=== PATIENT | female | born 1955 | race American Indian/Alaskan Native ===

== ENCOUNTER 2018-10-29 09:32 | Outpatient (CLI) | payer MEDICARE, SELFPAY ==
--- NOTE | 2018-10-29 09:24 | DI.RAD_ITS ---
SYMPTOMS/DIAGNOSIS: PAIN LEFT FOOT: Comparison is made with [id number]. Two screws are again noted through the first tarsal metatarsal joint. The bones appear osteopenic from disuse. An old fifth metatarsal fracture is seen. Degenerative changes are present at the first MTP joint.
== END 2018-10-29 09:52 ==
PROVIDERS: PCP Family Medicine; Referring Provider Family Medicine; Visit Provider Orthopaedic Surgery
DX: M25.572 Pain in left ankle and joints of left foot; Z47.89 Encounter for other orthopedic aftercare; M85.88 Other specified disorders of bone density and structure, other site
CPT/HCPCS: 99203; 99214; 73620

== ENCOUNTER → 2018-12-24 08:58 | Outpatient (BNVA) | payer MEDICARE, SELFPAY | PROVIDERS: PCP Family Medicine; Referring Provider Family Medicine; Visit Provider Orthopaedic Surgery | DX: Z47.89 Encounter for other orthopedic aftercare (principal); M20.12 Hallux valgus (acquired), left foot | CPT/HCPCS: 99201; 99213 ==

== ENCOUNTER 2019-06-01 13:49 | Emergency (ER) | payer MEDICARE, SELFPAY ==
--- NOTE | 2019-06-01 13:57 | NUR.NOTE ---
Nursing Note: pt states she had had abdominal pain centering on upper right quadrant since the 04/28 pain constantly. pt has also had nausea vomiting 1 time a day on average pain is worse after eating
[2019-06-01 13:59] VITALS: BP 128/78; PULSE 93; RESP 15; TEMP 36.8; O2SAT 97
--- NOTE | 2019-06-01 14:16 | ED.GENADUL_ITS ---
Discharge Plan Disposition Patient Disposition: HOME Condition: Stable Discharge Details Chief Complaint: Abd Prob Clinical Impression: Abdominal pain, Liver metastases Primary Care Provider: Julian Wadsworth ED Provider: Kentrell Vergara Home Meds and New Rx's Prescriptions: No Action venlafaxine [Effexor XR] 150 MG capsule,extended release 24hr 225 mg PO DAILY RF: 0 Discharge Instructions Additional Instructions: your cat scan showed you have numerous metastases on your cat scan. I placed you on our follow up list to see your primary care provider within a week and also and oncology if you feel you are becoming more ill or have severe worsening pain return to the emergency department Discharge Data Discharge Date/Time-TO BE ENTERED AT DEPARTURE: 06/01/19 17:19 Medical Decision Making 63 yo female who has a hx of hysterectomy in the past comes in with a week of abodminal pain and nausea. She states the pain is constant and denies recent travel or new meds. On exam she has pain throughout the abdomen without guarding but seems to have the most pain in the epigastric area. Given location of her pain and symptoms will obtain ct and also lab work and monitor labs show eleation in lfts and lipase, awaiting ct. She does feel better at this time CT shows numerous metastses in liver, also nonspecific inflammator changes in the stomache. She remains stable. I did discuss these findings with her and that she will need to f/u with providers and understands seriousness of her diagnosis. Will have her f/u with her pcp elisabeth and also oncology and Differential Diagnosis pancreatitis, sbo, appendicitis, ibs Imaging Data Radiologic Study: Attestation: I personally reviewed and interpreted this imaging study as follows: Imaging: CT Scan Radiologist's impression: IMPRESSION: 1. Innumerable liver lesions consistent with metastatic disease. Correlate with clinical situation and prior studies if available. 2. Diffuse wall thickening of the stomach suggestive of a nonspecific gastritis, versus artifact related to underdistention. Correlate clinically. Lab Data Lab results reviewed: Yes I reviewed the patient's lab results. HPI General Mode of arrival: ambulatory . Date/Time Provider Initiated Documentation: 06/01/19 13:52 . Limitations to Documentation: no limitations . Information obtained by: patient . History of Present Illness 63 year old F presents to the emergency department with the chief complaint of abdominal pain, described as moderate, and it has been constant. No relieving factors improve symptom(s), No exacerbating factors reported . Patient did receive the following treatments prior to arrival, none Related Data Home Medications Medication Instructions Recorded Confirmed venlafaxine [Effexor XR] 225 mg PO DAILY 04/18/18 06/01/19 Allergies Allergy/AdvReac Type Severity Reaction Status Date / Time clarithromycin [From Biaxin] Allergy Severe Anaphylaxsi Unverified 06/01/19 14:01 s Penicillins Allergy Intermediate Skin Rash Unverified 06/01/19 14:01 General Stated Complaint: Abd Prob ARABELLA: 4 Review of Systems Review of Systems All systems reviewed & are unremarkable except as noted in HPI and below Constitutional Denies chills, Denies fever(s) and Denies weakness Cardiovascular Denies chest pain and Denies dyspnea Respiratory Denies cough and Denies dyspnea Musculoskeletal Denies joint swelling Neurologic Denies weakness Endocrine Denies heat intolerance PFSH Social History Smoking/Tobacco Use Status: Former Tobacco Use Alcohol Intake: current Alcohol Intake frequency: holidays/special occasions only Substance use type: does not use Do you feel safe in your relationship?: Yes Exam Const General: no acute distress Orientation: alert HENMT Head: normal to inspection Ears: external ears normal General nose exam: external nose normal Mouth: moist mucous membranes Eyes General: appearance normal, both eyes and all related structures Neck Neck: normal visual inspection Resp Effort & Inspection: normal respiratory effort and able to speak in complete sentences Cardio Rate: regular rate GI Inspection: normal to inspection and no abdominal wall ecchymosis Skin General skin exam: no rashes or lesions noted Neuro General: alert and oriented x3 Extrem General: normal to inspection Psych Mental Status: mental status grossly normal Course Vital Signs Temperature 36.8 C 06/01/19 13:59 Pulse 93 H 06/01/19 13:59 Respiratory Rate 15 06/01/19 13:59 Blood Pressure 128/78 06/01/19 13:59 Pulse Oximetry 97 06/01/19 13:59 Temperature 36.8 C 06/01/19 13:59 Temperature Source Skin 06/01/19 13:59 Pulse 93 H 06/01/19 13:59 Respiratory Rate 15 06/01/19 13:59 Blood Pressure 128/78 06/01/19 13:59 Blood Pressure Position Sitting 06/01/19 13:59 Pulse Oximetry 97 06/01/19 13:59 Oxygen Delivery Method Room Air 06/01/19 13:59 Oxygen Flow Rate 0 06/01/19 13:59 Pain Level 7 06/01/19 13:59
[2019-06-01] MEDS: Normal Saline 1,000 ML 1000 ML IV (14:41)
[2019-06-01] MEDS: Prochlorperazine 10 MG/2 ML VIAL IVP (14:45)
[2019-06-01 14:53] LABS: Abs Immature Grans 0.03 k/cumm (0.0-0.09); HCT 42.3 % (36.0-46.0); HGB 14.2 g/dL (12.0-15.5); Mean Corp. HGB Concentration 33.6 g/dL (32.0-36.0); Mean Corpuscular Volume 98.4 fL (80-95); Platelet Count 256 x1000/uL (130-400); RBC Distribution Width 13.5 % (11.7-14.6); White Blood Cell Count 14.61 k/cumm (4.4-10.8)
[2019-06-01 14:56] LABS: Bilirubin Small (Negative); Blood Negative (Negative); Clarity Clear (Clear); Glucose Negative (Negative); Ketones Trace mg/dL (Negative); Leukocyte Esterase Negative (Negative); Nitrite Negative (Negative); Specific Gravity 1.015 (1.005-1.025); Urobilinogen 0.2 EU/dL (Up TO 0.2)
[2019-06-01 15:05] LABS: ALT 277 U/L (12-78); AST 290 U/L (15-37); Albumin 3.4 g/dL (3.4-5.0); Alkaline Phosphatase 504 U/L (46-116); Anion Gap 10.6 mmol/L (3-11); BUN 10 mg/dL (7-18); Bilirubin, Total 0.8 mg/dL (0.2-1.0); CO2 26.4 mmol/L (21.0-32.0); CREATININE 0.76 mg/dL (0.55-1.02); Calcium 9.7 mg/dL (8.5-10.1); Chloride 102 mmol/L (98-107); Glucose 97 mg/dL (70-100); Lipase 472 U/L (73-393); Magnesium 1.4 mg/dL (1.8-2.4); PTT Activated 23.8 sec (21.0-31.4); Potassium 3.8 mmol/L (3.5-5.1); Prothrombin Time 10.1 sec (9.3-11.0); Sodium 139 mmol/L (136-145); Total Protein 7.6 g/dL (6.4-8.2)
[2019-06-01 15:06] LABS: Absolute Eosinophil Count 0.15 k/cumm (0.0-0.7)
[2019-06-01 15:13] LABS: Absolute Basophil Count 0.15 k/cumm (0.0-0.2); Absolute Lymphocyte Count 3.36 k/cumm (1.2-3.4); Absolute Monocyte Count 2.78 k/cumm (0.11-0.7); Absolute Neutrophil Count 8.18 k/cumm (1.2-6.7); Atypical Lymphocytes % 4; Diff Comment Manual Differential; RBC Morphology Normal
[2019-06-01] MEDS: Ketorolac 15 MG/ML VIAL IVP (15:41)
[2019-06-01] MEDS: Omnipaque 350 MG/ML 100 ML BTL IJ (16:05)
--- NOTE | 2019-06-01 16:10 | DI.CT_ITS ---
SYMPTOMS/DIAGNOSIS: ABD PAIN, NAUSEA CT OF THE ABDOMEN AND PELVIS: There are no prior comparison exams. The liver is enlarged to 22 cm. There are innumerable low density lesions throughout the liver, highly suspicious for metastases. No ascites is present. There is no evidence of adenopathy or biliary dilatation. The gallbladder is contracted. The spleen is normal in size. The adrenals, pancreas, kidneys and urinary bladder appear normal. The patient is status post hysterectomy. No adenopathy is seen in the abdomen or pelvis. The appendix appears normal. No colonic mass is identified. The small bowel is unremarkable. The stomach is contracted. The lung bases are clear. There are old right posterior rib fractures. No lytic or blastic bony lesions are seen. There are facet degenerative changes in the lower lumbar spine. There is a tiny fatty containing umbilical hernia and a small right inguinal hernia. IMPRESSION: Enlarged liver with numerous low density lesions suspicious for metastatic disease. No primary mass or adenopathy is identified.
--- NOTE | 2019-06-01 16:58 | DI.VRAD_ITS ---
EXAM: CT Abdomen and Pelvis With Contrast EXAM DATE/TIME: 06/01/2019 3:23 PM CLINICAL HISTORY: 63 years old, female; Abdominal pain; Other: Ruq TECHNIQUE: Imaging protocol: Axial computed tomography images of the abdomen and pelvis with intravenous contrast. Coronal and sagittal reformatted images were created and reviewed. Radiation optimization: All CT scans at this facility use at least one of these dose optimization techniques: automated exposure control; mA and/or kV adjustment per patient size (includes targeted exams where dose is matched to clinical indication); or iterative reconstruction. Contrast material: OMNIPAQUE 350;Contrast volume: 100 ml;Contrast route: IV; COMPARISON: No relevant prior studies available. FINDINGS: Liver: Innumerable liver lesions consistent with metastatic disease. Correlate with clinical situation and prior studies if available. Gallbladder and bile ducts: Normal. No calcified stones. No ductal dilation. Pancreas: Normal. No ductal dilation. Spleen: Normal. No splenomegaly. Adrenals: Normal. No mass. Kidneys and ureters: Normal. No hydronephrosis. Stomach and bowel: Diffuse wall thickening of the stomach suggestive of a nonspecific gastritis, versus artifact related to underdistention. Correlate clinically. Appendix: No evidence of appendicitis. Intraperitoneal space: Normal. No free air. No significant fluid collection. Vasculature: Aorta demonstrates mild atherosclerotic calcification. Lymph nodes: Normal. No enlarged lymph nodes. Bladder: Unremarkable as visualized. Reproductive: Unremarkable as visualized. Bones/joints: Grade 1 anterolisthesis L4-L5. Soft tissues: Fat-containing right inguinal hernia without incarceration. IMPRESSION: 1. Innumerable liver lesions consistent with metastatic disease. Correlate with clinical situation and prior studies if available. 2. Diffuse wall thickening of the stomach suggestive of a nonspecific gastritis, versus artifact related to underdistention. Correlate clinically. Dictated and Authenticated by: Armani Montenegro MD. Ordering:STEVEN Pfeiffer MD
== END 2019-06-01 17:19 | disposition home or self-care (01) ==
PROVIDERS: Emergency Provider Emergency Medicine; PCP Specialist/Technologist Athletic Trainer
DX: C78.7 Secondary malignant neoplasm of liver and intrahepatic bile duct (principal); R10.13 Epigastric pain; R11.0 Nausea
CPT/HCPCS: 36415; 80053; 83690; 96361; 96374; 96375; 99285; 74177; 81003; 83735; 85025; 85610; 85730; 99284; J0780; J1885; J2405; J3490

== ENCOUNTER 2019-06-11 23:04 | Observation (INO) | payer MEDICARE, SELFPAY ==
--- NOTE | 2019-06-11 00:16 | DI.CT_ITS ---
SYMPTOMS/DIAGNOSIS: RLQ PAIN CT OF THE ABDOMEN AND PELVIS: Comparison is made with [id number]. The liver is again noted to be markedly enlarged and show innumerable low density lesions presumably representing metastatic disease. The spleen, pancreas, kidneys and adrenals are unremarkable. The gallbladder shows no evidence of abnormal distention or wall thickening. The appendix appears normal. There is a question of some wall thickening of the cecum. The bladder is unremarkable. There is no small bowel dilatation. There is a rounded area of debris within the stomach which does not appear significantly changed from the previous exam. The findings could represent a bezoar vs a mass. Evaluation is limited without oral contrast. IMPRESSION: 1. Innumerable liver metastases, unchanged. Question of a gastric mass vs bezoar. Question of wall thickening of the cecum.
[2019-06-11 23:08] VITALS: BP 135/112; PULSE 97; RESP 22; TEMP 36.5; O2SAT 98
--- NOTE | 2019-06-11 23:11 | ED.GENADUL_ITS ---
Discharge Plan Disposition Patient Disposition: [facility] INPATIENT Condition: Fair Discharge Details Chief Complaint: Abd Prob Clinical Impression: Abdominal pain, RLQ Primary Care Provider: Julian Wadsworth ED Provider: Reynaldo Watson [place] Meds and New Rx's Prescriptions: No Action venlafaxine [Effexor XR] 150 mg Capsule,Extended Release 24hr 300 mg PO DAILY RF: 0 Medical Decision Making Patient presenting with severe right lower quadrant abdominal pain status post liver biopsy yesterday. She does not have right upper quadrant pain and the biopsy site looks fine. She has had sweats and chills but no fever that she is aware of. Doubt that this is related to the biopsy. She does have her appendix. She is being worked up for metastatic cancer to the liver with u domingowfroy primary. Will place IV and start fluids. She will receive morphine for pain. We will get laboratory studies. Will get CT scan of the abdomen pelvis. Laboratory studies are not significantly different than previous. White count remained mildly elevated. Hemoglobin is stable and normal. Liver function is elevated but is around the same values as before. Bilirubin is a little bit higher than previous. Lipase continues to be elevated. Urinalysis is negative for infection or blood. CT scan continues to show hepatomegaly with metastatic disease. Stomach continues to show thickening and does not look significantly different than before. New findings compared to previous done within the last couple weeks now shows inflammatory changes in the cecum and proximal colon. The appendix is normal. There is one loop of small bowel that is a little distended and fluid- filled but no definite obstruction. Patient continues to have pain but is much more comfortable after morphine. She still has involuntary guarding and tenderness in the right lower quadrant. Case is discussed with surgery, Dr. Abraham. Will admit the patient and keep n.p.o. except for ice chips. Will start Zosyn. Dr. Abraham to see in the morning and review CAT scan and plan further evaluation and management then. Patient is aware and agreeable with plan. Medical Records Medical records reviewed: Yes I reviewed the patient's medical records. Lab Data Lab results reviewed: Yes I reviewed the patient's lab results. HPI General Mode of arrival: ambulatory . Date/Time Provider Initiated Documentation: 06/11/19 23:10 . Limitations to Documentation: no limitations . Information obtained by: patient, RN notes reviewed and old records reviewed . HPI Narrative: Patient presents to ED with severe right lower quadrant abdominal pain. Patient has recently been diagnosed with metastatic cancer to the liver of unknown primary. She underwent liver biopsy yesterday at [facility]. She is not having pain at the biopsy site or in the right upper quadrant. She has had increasing pain in the right lower quadrant. She has difficulty lying flat, walking, riding in the car all caused significant pain. She has had sweats and chills but unknown whether she had fever or not. She has had persistent nausea and vomiting over the last couple of weeks which actually prompted an ED visit at which diagnosis of mets to the liver was made. She did have a bowel movement today. She denies any specific urinary symptoms other than foul smell. She did speak to the doctors at [facility] earlier today. She was told that if she got worse she should present to the ED. The pain does not radiate into the back at all. She does not experience pain anywhere but the right lower quadrant. Holding pressure in the area makes it feel better but only mildly so. Related Data Home Medications Medication Instructions Recorded Confirmed venlafaxine [Effexor XR] 300 mg PO DAILY 06/12/19 06/12/19 Allergies Allergy/AdvReac Type Severity Reaction Status Date / Time clarithromycin [From Biaxin] Allergy Severe Anaphylaxsi Unverified 06/12/19 00:09 s Penicillins Allergy Intermediate Skin Rash Unverified 06/12/19 00:09 General ARABELLA: 4 Review of Systems Review of Systems 08/02 Review of Systems completed and is negative except as stated above in HPI (Systems reviewed: Const, Eyes, ENT, Resp, CV, GI, , MSK, Skin, Neuro) PFSH Surgical History S/P hysterectomy (Acute) Social History Smoking/Tobacco Use Status: Former Tobacco Use Alcohol Intake: current Alcohol Intake frequency: holidays/special occasions only Drug use: Never Substance use type: does not use Do you feel safe at home: Yes Do you feel safe in your relationship?: Yes Exam Narrative Exam Narrative: Vitals: Afebrile. Mildly tachycardic and hypertensive. Pulse oximetry normal. Const: WDWN female who appears quite uncomfortable. HEENT: NC/AT. Normal facial exam. Eyes: Appears to have some mild icterus. Neck: Supple. Trachea midline. Lungs: Normal respiratory effort. Lungs are clear. Cor: RRR without murmur/gallop. Good radial pulses. GI: Soft and non-distended. Tender with guarding in the RLQ. Biopsy site looks well. Back: No CVAT. Neuro: A+O x 3. CN grossly in tact. Good strength and no focal deficit. Ext: No C/C/E. No deformity or tenderness. Skin: Warm and dry without rash.
[2019-06-11] MEDS: MORPHine 10 MG/ML VIAL 4 MG IVP (23:31)
[2019-06-11] MEDS: Lactated Ringers 1,000 ML 125 ML IV (23:34)
[2019-06-11 23:45] VITALS: BP 122/70; PULSE 98; RESP 21; O2SAT 97
[2019-06-11] MEDS: Ondansetron 4 MG/2 ML VIAL IVP (23:46)
[2019-06-11 23:50] LABS: Abs Immature Grans 0.05 k/cumm (0.0-0.09); Absolute Basophil Count 0.04 k/cumm (0.0-0.2); Absolute Eosinophil Count 0.12 k/cumm (0.0-0.7); Absolute Monocyte Count 2.24 k/cumm (0.11-0.7); Absolute Neutrophil Count 7.42 k/cumm (1.2-6.7); Basophils % 0.3; Eosinophils % 0.9; HCT 43.4 % (36.0-46.0); HGB 14.4 g/dL (12.0-15.5); Immature Grans % 0.4; Lymphocytes % 23.3; Mean Corp. HGB Concentration 33.2 g/dL (32.0-36.0); Mean Corpuscular Hemoglobin 32.6 pg (27.0-33.0); Mean Corpuscular Volume 98.2 fL (80-95); Mean Platelet Volume 12.1 fL (8.0-11.0); Monocytes % 17.4; Neutrophils % 57.7; Platelet Count 296 x1000/uL (130-400); RBC 4.42 m/cumm (4.00-5.20); RBC Distribution Width 14.2 % (11.7-14.6); White Blood Cell Count 12.86 k/cumm (4.4-10.8)
[2019-06-11 23:53] LABS: Diff Comment Agrees w/ Instrument
[2019-06-11 23:54] LABS: RBC Morphology Normal
[2019-06-12] VITALS (9 sets, daily range): BP systolic 93–123; BP diastolic 62–84; PULSE 77–102; RESP 16–20; TEMP 35.7–36.7; O2SAT 90–97
[2019-06-12 00:02] LABS: ALT 264 U/L (14-59); AST 364 U/L (15-37); Albumin 3.4 g/dL (3.4-5.0); Alkaline Phosphatase 598 U/L (46-116); Anion Gap 12.4 mmol/L (3-11); BUN 8 mg/dL (7-18); Bilirubin, Total 1.9 mg/dL (0.2-1.0); CO2 25.6 mmol/L (21.0-32.0); CREATININE 0.66 mg/dL (0.55-1.02); Calcium 9.1 mg/dL (8.5-10.1); Chloride 102 mmol/L (98-107); Glucose 87 mg/dL (70-100); Lipase 587 U/L (73-393); Sodium 140 mmol/L (136-145)
[2019-06-12] MEDS: Omnipaque 350 MG/ML 100 ML BTL IJ (00:13)
[2019-06-12 00:46] LABS: Bilirubin Moderate (Negative); Blood Negative (Negative); Clarity Clear (Clear); Glucose Negative (Negative); Ketones Negative (Negative); Leukocyte Esterase Negative (Negative); Nitrite Negative (Negative); Specific Gravity <= 1.005 (1.005-1.025)
--- NOTE | 2019-06-12 01:13 | DI.VRAD_ITS ---
EXAM: CT Abdomen and Pelvis With Contrast EXAM DATE/TIME: 06/11/2019 11:25 PM CLINICAL HISTORY: 63 years old, female; Abdominal pain; Localized; Right lower quadrant (rlq); Prior surgery; Surgery date: Post-operative (0-2 days); Surgery type: Liver biopsy yesterday TECHNIQUE: Imaging protocol: Computed tomography images of the abdomen and pelvis with intravenous contrast. Radiation optimization: All CT scans at this facility use at least one of these dose optimization techniques: automated exposure control; mA and/or kV adjustment per patient size (includes targeted exams where dose is matched to clinical indication); or iterative reconstruction. Contrast material: [id number]; Contrast volume: 100 ml; Contrast route: IV RAC 18G; COMPARISON: CT ABDOMEN PELVIS W 06/01/2019 4:04 PM FINDINGS: Liver: Multiple liver lesions consistent with metastases. Gallbladder and bile ducts: Normal. No calcified stones. No ductal dilation. Pancreas: Normal. No ductal dilation. Spleen: Normal. No splenomegaly. Adrenals: Normal. No mass. Kidneys and ureters: Normal. No hydronephrosis. Stomach and bowel: There is eccentric wall thickening in lesser curvature, body of the stomach with mass like density, measuring 1.5 x 2 x 1.2 cm, series 7, image 49 and series 6 image #35. Appearance of the stomach in this region has not significantly changed from prior study. There is subtle stranding of a fat about the cecum and ascending colon. Colon is normal in caliber. There is a a fluid distended segment of small bowel in mid to lower left abdomen extending over approximately 10 cm. Small bowel is otherwise normal in caliber. Appendix: No evidence of appendicitis. Intraperitoneal space: Normal. No free air. No significant fluid collection. Vasculature: Normal. No abdominal aortic aneurysm. Lymph nodes: Normal. No enlarged lymph nodes. Bladder: Unremarkable as visualized. Reproductive: Unremarkable as visualized. Bones/joints: The spine demonstrates mild degenerative changes at multiple levels. There is minimal anterior subluxation of L4 with respect L5. No suspicious sclerotic or lucent bone lesions are identified. Soft tissues: Unremarkable. IMPRESSION: 1. Hepatomegaly. 2. Multiple liver lesions consistent with metastases. 3. Eccentric wall thickening in stomach could be due mass, scarring or stricture Endoscopy is recommended. 4. Stranding of the fat about proximal colon could be due to inflammatory or infectious process or less likely third spacing of fluid. Dictated and Authenticated by: Terence Calix MD. Ordering:MIREYA Jacobs MD
[2019-06-12] MEDS: Normal Saline 1,000 ML 125 ML IV ×2 (02:04→10:21)
[2019-06-12] MEDS: Ondansetron 4 MG/2 ML VIAL IVP ×3 (02:04→12:44)
[2019-06-12] MEDS: PIPERACILLIN/TAZO 3.375 GM in Normal Saline 50 ML IVPB ×3 (02:05→14:11)
[2019-06-12] MEDS: MORPHine 2 MG/ML SYR 4 MG IVP (02:38)
--- NOTE | 2019-06-12 04:58 | HPE_ITS ---
Date of service: 06/12/19 Time of Service: 04:58 Assessment and Plan (1) Right lower quadrant abdominal pain: Current visit: Yes Status: Acute A\\ RLQ pain Ct scan with mild fat starnding around cecum/ileum ? enteritis P\\ Admit, antibiotics soft low fiber diet D/C once tolerating diet and pain is controlled History of Present Illness Consults Consult date: 06/12/19 Requesting physician: Reynaldo Watson Narrative: Mrs. Kaiser is a 63 year old female status post liver biopsy at [facility] for unknown primary liver mets. She came in to the ER complaining of RLQ abdominal pain. She continues to have nause and intermittent emesis. This is no change since she was last seen in the ER on 06/02/19. Labs today are not changed since the last set. LFT's are still elevated. CT scan was done which showed mild inflammation of cecum and ileum. Normal appendix. Review of Systems Constitutional Denies fever(s), Denies night sweats and Reports weight loss Cardiovascular Denies chest pain, Denies irregular heart rhythm, Denies palpitations, Denies dyspnea and Denies dyspnea on exertion Respiratory Denies dyspnea and Denies dyspnea on exertion Gastrointestinal Reports as per HPI Genitourinary Denies hematuria and Denies dysuria Endocrine Denies palpitations [facility] Medical History (Updated 06/12/19 @ 05:03 by Stephie Abraham MD) Bipolar disorder (Acute) Liver metastases (Acute) Surgical History S/P hysterectomy (Acute) Social History Smoking/Tobacco Use Status: Former Tobacco Use Alcohol Intake: current Alcohol Intake frequency: holidays/special occasions only Drug use: Never Substance use type: does not use Do you feel safe at home: Yes Do you feel safe in your relationship?: Yes Meds Home Medications Medication Instructions Recorded Confirmed Type venlafaxine [Effexor XR] 300 mg PO DAILY 06/12/19 06/12/19 History Allergies Allergy/AdvReac Type Severity Reaction Status Date / Time clarithromycin [From Biaxin] Allergy Severe Anaphylaxsi Unverified 06/12/19 00:09 s Penicillins Allergy Intermediate Skin Rash Unverified 06/12/19 00:09 Exam Const General: cooperative, comfortable and no acute distress Orientation: alert and oriented x3 HENMT Head: normocephalic and atraumatic Cardio Rate: regular rate Rhythm: regular rhythm Heart Sounds: no gallops, no murmurs and no rubs GI Inspection: normal to inspection Palpation: soft, hepatomegaly and tender (tender over the liver more then RLQ this am) in the RLQ; with no rebound tenderness Auscultation: normal bowel sounds Results Labs : 06/11/19 23:35 06/11/19 23:35 Laboratory Results - last 24 hr 06/11/19 06/11/19 06/12/19 23:35 23:35 00:30 WBC 12.86 H RBC 4.42 Hgb 14.4 Hct 43.4 MCV 98.2 H MCH 32.6 MCHC 33.2 RDW 14.2 Plt Count 296 MPV 12.1 H Immature Gran % 0.4 Neutrophils % 57.7 Lymphocytes % 23.3 Monocytes % 17.4 Eosinophils % 0.9 Basophils % 0.3 Absolute Neutrophils 7.42 H Absolute Lymphocytes 3.00 Absolute Monocytes 2.24 H Absolute Eosinophils 0.12 Absolute Basophils 0.04 Differential Comment Agrees w/ instrument RBC Morphology Normal Sodium 140 Potassium 4.0 Chloride 102 Carbon Dioxide 25.6 Anion Gap 12.4 H BUN 8 Creatinine 0.66 Estimated GFR/1.73 m2 >= 60.00 Glucose 87 Calcium 9.1 Total Bilirubin 1.9 H AST 364 H ALT 264 H Alkaline Phosphatase 598 H Total Protein 8.0 Albumin 3.4 Lipase 587 H Urine Color Yellow Urine Clarity Clear Urine pH 6.0 Ur Specific [place] <= 1.005 Urine Protein Negative Urine Ketones Negative Urine Blood Negative Urine Nitrite Negative Urine Bilirubin Moderate H Urine Urobilinogen 4.0 H Ur Leukocyte Esterase Negative Urine Glucose Negative Last Vital Signs Temp 96.3 F L 06/12/19 02:50 Pulse 93 H 06/12/19 02:50 Resp 20 06/12/19 02:50 BP 109/71 06/12/19 02:50 Pulse Ox 90 L 06/12/19 02:50
[2019-06-12] MEDS: Normal Saline Flush 10 ML SYR IVP ×2 (07:33→12:38)
--- NOTE | 2019-06-12 08:04 | PDOC.CMIN ---
- If Service Date Differs Date of service: 06/12/19 Time of Service: 08:04 Care Management Initial Assess REASON FOR HOSPITALIZATION:: RLQ Abdominal pain PAST MEDICAL HISTORY/PAST SURGICAL HISTORY:: Medical History: Bipolar disorder (Acute). Liver metastases (Acute). Surgical History: S/P hysterectomy (Acute) PREVIOUS FUNCTIONAL STATUS/SOCIAL/FAMILY SUPPORTS:: Ashley lives in a single family home in [facility] that she rents. Her son Wilfredo lives with her but sometimes travels for work. Ashley has been disabled for quite some time, so is not currently employed. In addition to Wilfredo, Katie has 2 other children: one is a daughter Rina and the other is a son who lives with [facility] in [place]. In addition to the strong support of her children, Ashley has several sisters who have agreed to come down from [place] to help her out, should that be needed. Ashley functions independently in the community and is able to mperform all of her own ADLs. CURRENT FUNCTIONAL STATUS:: Ashley was sitting up in bed when CM met with her. She talked openly about the fact that she has several lesions in her liver that have metastasized from an, as yet, unknown site. She reviewed the testing that she has had and the consultants she has seen. Much of the workup has been done at [facility] with her PCP, Dr. Wadsworth, coordinating the care and referrals. She had a biopsy of the liver lesions on 06/10/19 at [facility] and expects result by 06/16/19. Ashley shared that she is working on getting her papers in order, including financials, and that this has brought her some measure of comfort. She also expressed some concern about the impact this diagnosis may have on her financially, and has already applied for Medicaid. CM will follow up on her application on Friday with [employer]. Ashley states that the pain in her abdomen seems to get worse when she is OOB ambulating so she plans to take it easy for today. ADVANCE DIRECTIVES:: None on file at [facility]. Given a copy of [facility] Advanced Directives forms ans contact information id assistance needed Has patient been provided with information about the portal?: Yes Did the patient sign up for the portal?: No CODE STATUS:: Full Code INSURANCE COVERAGE / FINANCIAL ISSUES:: Medicare CURRENT HOME/COMMUNITY SERVICES/EQUIPMENT:: none currently PRIMARY CARE PHYSICIAN:: Julian Wadsworth POTENTIAL DISCHARGE NEEDS:: Follow up with surgeon, PCP and discharge plan of care PATIENT/FAMILY EDUCATION NEEDS:: Discharge plan, limitations, follow up and Ask Me Three. ANTICIPATED BARRIERS TO DISCHARGE:: none identified TRANSPORTATION:: via private vehicle with family when ready PLAN:: Ashley is currently receiving medication for the pain in her abdomen. She will return home with no new services. She will transport with family and follow up with her PCP and consultants at [facility]. CM will continue to support patient, family and discharge planning needs, including Medicaid application.
[2019-06-12] MEDS: Venlafaxine 150 MG CAPCR 300 MG PO (08:28)
--- NOTE | 2019-06-12 11:04 | PHARADMIT ---
Admission Pharmacy Clinical Review RLQ abdominal pain Code Status Full Code Current Weight 85.7 kg Renally Cleared and Narrow Therapeutic Index Meds Crcl ~66.45 mL/min current meds okay QTc Value / Action Taken n/a BP Control, Fever BP 112/76 afebrile Electrolytes reviewed within normal limits DVT Prophylaxis none Opiate Usage / Scheduled Bowel Regimen Ordered prn/no Plt/SCr for Heparin / Enoxaparin plt 296 SCr 0.66 INR for Warfarin n/a H/H stable, WBC/Bands h/h 14.4/43.4 WBC 12.86 Antibiotic appropriateness zosyn Cultures and Sensitivities none Surgical ABX d/c within 24 hr n/a DM control / Insulin Dosing BG 87 none Heart Failure (Check EF%) (GISEL's, B-Block, Diuretics) none IV to PO Switch n/a Home Meds Reviewed yes Home Meds Not Ordered all ordered Comments
[2019-06-12] MEDS: Ketorolac 30 MG/ML VIAL IVP (12:37)
--- NOTE | 2019-06-12 15:32 | PGE_ITS ---
Date of Service Date of service: 06/12/19 Time of Service: 15:42 Assessment and Plan (1) Right lower quadrant abdominal pain: Current visit: Yes Status: Acute A\\ Improved. Does tell me now that she has been having some loose stools. P\\ Discharge on Augmentin for 5 days and Toradol for pain Has compazine at home for nausea (2) Liver metastases: Current visit: Yes Status: Acute A\\ Await results of the biopsy P\\ Follow up with PCP next week to assist her with pain management and nausea managament Subjective Interval history since last seen: Feeling better. RLQ abdominal pain is now with movement only. Continues with nausea and early satiety. Not eating much. Discussed getting some ensure to get some nutrition. Exam Resp Effort & Inspection: normal respiratory effort Auscultation: clear to auscultation bilaterally Cardio Rate: regular rate Rhythm: regular rhythm GI Inspection: normal to inspection Palpation: soft, hepatomegaly and tender (over the liver and mild RLQ) Auscultation: normal bowel sounds Objective Objective Clinical Data: Abnormal lab results 06/11/19 06/11/19 06/12/19 Range/Units 23:35 23:35 00:30 WBC 12.86 H (4.4-10.8) k/cumm MCV 98.2 H (80-95) fL MPV 12.1 H (8.0-11.0) fL Absolute Neutrophils 7.42 H (1.2-6.7) k/cumm Absolute Monocytes 2.24 H (0.11-0.7) k/cumm Anion Gap 12.4 H (3-11) mmol/L Total Bilirubin 1.9 H (0.2-1.0) mg/dL AST 364 H (15-37) U/L ALT 264 H (14-59) U/L Alkaline Phosphatase 598 H (46-116) U/L Lipase 587 H (73-393) U/L Urine Bilirubin Moderate H (Negative) Urine Urobilinogen 4.0 H (Up TO 0.2) EU/dL Vital Signs Temperature 97.5 F L 06/12/19 11:25 Temperature Source Tympanic 06/12/19 11:25 Pulse 86 06/12/19 11:25 Pulse Rhythm Regular 06/12/19 07:30 Respiratory Rate 18 06/12/19 11:25 Respiratory Effort Non-Labored 06/12/19 07:30 Respiratory Depth Normal 06/12/19 07:30 Respiratory Pattern Normal 06/12/19 07:30 Blood Pressure 118/74 06/12/19 11:25 Pulse Oximetry 96 06/12/19 11:25 Oxygen Delivery Method Room Air 06/12/19 11:25 Oxygen Flow Rate 0 06/12/19 11:25 Pain Level 0 06/12/19 13:37 Comment 06/12/19 11:25 Intake & Output 06/11/19 06/12/19 06/12/19 23:59 11:59 23:59 Intake Total 2029.167 / 3181.667 1152.500 / 3181.667 Output Total 525 / 850 325 / 850 Balance 1504.167 / 2331.667 827.500 / 2331.667 Weight 190 lb 0.016 oz 188 lb 14.978 oz Intake: IV 1379.167 / 1941.667 562.500 / 1941.667 Oral 650 / 1240 590 / 1240 Output: Urine 525 / 850 325 / 850 Other: Urine Color Dark Radha Dark Radha Urine Appearance Clear Clear Urine Odor Normal Voiding Methods Toilet Toilet Laboratory Results WBC 12.86 k/cumm (4.4-10.8) H 06/11/19 23:35 RBC 4.42 m/cumm (4.00-5.20) 06/11/19 23:35 Hgb 14.4 g/dL (12.0-15.5) 06/11/19 23:35 Hct 43.4 % (36.0-46.0) 06/11/19 23:35 MCV 98.2 fL (80-95) H 06/11/19 23:35 MCH 32.6 pg (27.0-33.0) 06/11/19 23:35 MCHC 33.2 g/dL (32.0-36.0) 06/11/19 23:35 RDW 14.2 % (11.7-14.6) 06/11/19 23:35 Plt Count 296 x1000/uL (130-400) 06/11/19 23:35 MPV 12.1 fL (8.0-11.0) H 06/11/19 23:35 Immature Gran % 0.4 06/11/19 23:35 57.7 06/11/19 23:35 23.3 06/11/19 23:35 17.4 06/11/19 23:35 0.9 06/11/19 23:35 0.3 06/11/19 23:35 Absolute Neutrophils 7.42 k/cumm (1.2-6.7) H 06/11/19 23:35 Absolute Lymphocytes 3.00 k/cumm (1.2-3.4) 06/11/19 23:35 Absolute Monocytes 2.24 k/cumm (0.11-0.7) H 06/11/19 23:35 Absolute Eosinophils 0.12 k/cumm (0.0-0.7) 06/11/19 23:35 Absolute Basophils 0.04 k/cumm (0.0-0.2) 06/11/19 23:35 Agrees w/ instrument 06/11/19 23:35 RBC Morphology Normal 06/11/19 23:35 Sodium 140 mmol/L (136-145) 06/11/19 23:35 Potassium 4.0 mmol/L (3.5-5.1) 06/11/19 23:35 Chloride 102 mmol/L (98-107) 06/11/19 23:35 Carbon Dioxide 25.6 mmol/L (21.0-32.0) 06/11/19 23:35 12.4 mmol/L (3-11) H 06/11/19 23:35 BUN 8 mg/dL (7-18) 06/11/19 23:35 0.66 mg/dL (0.55-1.02) 06/11/19 23:35 >= 60.00 (mL/min/1.73m2) 06/11/19 23:35 Glucose 87 mg/dL (70-100) 06/11/19 23:35 Calcium 9.1 mg/dL (8.5-10.1) 06/11/19 23:35 1.9 mg/dL (0.2-1.0) H 06/11/19 23:35 AST 364 U/L (15-37) H 06/11/19 23:35 ALT 264 U/L (14-59) H 06/11/19 23:35 598 U/L (46-116) H 06/11/19 23:35 8.0 g/dL (6.4-8.2) 06/11/19 23:35 3.4 g/dL (3.4-5.0) 06/11/19 23:35 587 U/L (73-393) H 06/11/19 23:35 Yellow (Yellow) 06/12/19 00:30 Clear (Clear) 06/12/19 00:30 6.0 (5-8) 06/12/19 00:30 Ur Specific [place] <= 1.005 (1.005-1.025) 06/12/19 00:30 Negative mg/dL (Negative) 06/12/19 00:30 Negative mg/dL (Negative) 06/12/19 00:30 Negative (Negative) 06/12/19 00:30 Negative (Negative) 06/12/19 00:30 Moderate (Negative) H 06/12/19 00:30 4.0 EU/dL (Up TO 0.2) H 06/12/19 00:30 Ur Leukocyte Esterase Negative (Negative) 06/12/19 00:30 Negative mg/dL (Negative) 06/12/19 00:30
--- NOTE | 2019-06-12 15:46 | W.PM.DS.N ---
Date of service: 06/12/19 Time of Service: 15:46 DS: Diagnosis Discharge Diagnosis (1) Right lower quadrant abdominal pain: Status: Acute (2) Liver metastases: Status: Acute Discharge Plan Disposition Patient Disposition: HOME Condition: Fair Discharge Details Chief Complaint: Abd Prob Clinical Impression: Abdominal pain, RLQ Reason For Visit: RLQ ABDOMINAL PAIN Admit Date/Time: 06/12/19 01:30 Admit Provider: Stephie Abraham Attending Provider: Stephie Abraham Primary Care Provider: Julian Wadsworth [facility] Hospital Course: Mrs Kaiser is a 63 year old admitted with RLQ pain and ? enteritis on CT scan that was mild. Patient has had loose stools in the last few days. Patient also has hx of liver mets that is being worked up. No primary has been found. She complains of early satiety and nausea as well as pain over her liver. Patient was admitted and started on abx and given fluids. 3 hours after admission she felt better and her RLQ pain was a lot less and only pressent with activity and deep palpation. She was given a diet which she tolerated although she did not eat much due to early satiety. Patient will be sent home on Toradol for 3 days as well as augmentin for 4 days for possible bacterial colitis. She has compazine at home for nausea. She should follow up with her PCP next week for better pain control and nutrition assistance. I have recommended ensure to start with. Home Meds and New Rx's Prescriptions: New ketorolac 10 mg tablet 10 mg PO Q6H 5 Days Qty: 20 RF: 0 amoxicillin-pot clavulanate [Augmentin] 875-125 mg tablet 1 tab PO BID Qty: 9 RF: 0 Continued venlafaxine [Effexor XR] 150 mg Capsule,Extended Release 24hr 300 mg PO DAILY RF: 0 Discharge Instructions Instructions: High Protein / High Calorie Diet (GEN), Low Fiber Diet (GEN) Activity:: Activity as Tolerated Equipment/Supplies:: No Equipment Needed Diet:: high protein, low fiber Exam Resp Effort & Inspection: normal respiratory effort Auscultation: clear to auscultation bilaterally Cardio Rate: regular rate Rhythm: regular rhythm GI Palpation: soft, hepatomegaly and tender (mild tenderness throughout abdomen) DS: Data Vitals/I&O Vitals and I&O: Vital Signs Temperature 97.5 F L 06/12/19 11:25 Temperature Source Tympanic 06/12/19 11:25 Pulse 86 06/12/19 11:25 Pulse Rhythm Regular 06/12/19 07:30 Respiratory Rate 18 06/12/19 11:25 Respiratory Effort Non-Labored 06/12/19 07:30 Respiratory Depth Normal 06/12/19 07:30 Respiratory Pattern Normal 06/12/19 07:30 Blood Pressure 118/74 06/12/19 11:25 Pulse Oximetry 96 06/12/19 11:25 Oxygen Delivery Method Room Air 06/12/19 11:25 Oxygen Flow Rate 0 06/12/19 11:25 Pain Level 0 06/12/19 13:37 Comment 06/12/19 11:25 Intake & Output 06/11/19 06/12/19 06/12/19 23:59 11:59 23:59 Intake Total 2029.167 / 3181.667 1152.500 / 3181.667 Output Total 525 / 850 325 / 850 Balance 1504.167 / 2331.667 827.500 / 2331.667 Weight 190 lb 0.016 oz 188 lb 14.978 oz Intake: IV 1379.167 / 1941.667 562.500 / 1941.667 Oral 650 / 1240 590 / 1240 Output: Urine 525 / 850 325 / 850 Other: Urine Color Dark Radha Dark Radha Urine Appearance Clear Clear Urine Odor Normal Voiding Methods Toilet Toilet Labs on day of discharge: Labs from last 24 hours 06/12/19 06/11/19 06/11/19 00:30 23:35 23:35 WBC 12.86 H RBC 4.42 Hgb 14.4 Hct 43.4 MCV 98.2 H MCH 32.6 MCHC 33.2 RDW 14.2 Plt Count 296 MPV 12.1 H Immature Gran % 0.4 Neutrophils % 57.7 Lymphocytes % 23.3 Monocytes % 17.4 Eosinophils % 0.9 Basophils % 0.3 Absolute Neutrophils 7.42 H Absolute Lymphocytes 3.00 Absolute Monocytes 2.24 H Absolute Eosinophils 0.12 Absolute Basophils 0.04 Differential Comment Agrees w/ instrument RBC Morphology Normal Sodium 140 Potassium 4.0 Chloride 102 Carbon Dioxide 25.6 Anion Gap 12.4 H BUN 8 Creatinine 0.66 Estimated GFR/1.73 m2 >= 60.00 Glucose 87 Calcium 9.1 Total Bilirubin 1.9 H AST 364 H ALT 264 H Alkaline Phosphatase 598 H Total Protein 8.0 Albumin 3.4 Lipase 587 H Urine Color Yellow Urine Clarity Clear Urine pH 6.0 Ur Specific [place] <= 1.005 Urine Protein Negative Urine Ketones Negative Urine Blood Negative Urine Nitrite Negative Urine Bilirubin Moderate H Urine Urobilinogen 4.0 H Ur Leukocyte Esterase Negative Urine Glucose Negative PFSH Medical History Bipolar disorder (Acute) Liver metastases (Acute) Surgical History S/P hysterectomy (Acute) Social History Smoking/Tobacco Use Status: Former Tobacco Use Alcohol Intake: current Alcohol Intake frequency: holidays/special occasions only Drug use: Never Substance use type: does not use Do you feel safe at home: Yes Do you feel safe in your relationship?: Yes
== END 2019-06-12 16:30 | disposition home or self-care (01) ==
LOC: ER 06-12 01:51 → MS 06-12 02:49
PROVIDERS: Admitting Provider Surgery; Emergency Provider Emergency Medicine; PCP Specialist/Technologist Athletic Trainer; Visit Provider Surgery
DX: C78.7 Secondary malignant neoplasm of liver and intrahepatic bile duct (principal); R10.31 Right lower quadrant pain; C80.1 Malignant (primary) neoplasm, unspecified
CPT/HCPCS: 36415; 80053; 83690; 96361; 96365; 96375; 99222; 99236; 99238; 99285; NC; 74177; 81003; 85025; 99284; G0378; J1885; J2270; J2405; J2543; J3490

== ENCOUNTER 2019-06-15 04:25 | Emergency (ER) | payer MEDICARE, SELFPAY ==
[2019-06-15 04:27] VITALS: BP 119/74; PULSE 112; RESP 18; TEMP 37; O2SAT 96
--- NOTE | 2019-06-15 04:42 | W.ED.GENAD ---
Discharge Plan Disposition Patient Disposition: HOME Condition: Stable Discharge Details Chief Complaint: Nausea/Vomit/Diar Clinical Impression: Liver metastases, Nausea and vomiting Primary Care Provider: Julian Wadsworth ED Provider: Kentrell Vergara Home Meds and New Rx's Prescriptions: New oxycodone 5 mg tablet 5 mg PO Q6H PRN (Reason: pain) Qty: 12 RF: 0 lorazepam 1 mg tablet 1 mg PO TID PRN (Reason: nausea and vomiting) Qty: 20 RF: 0 Continued venlafaxine [Effexor XR] 150 mg Capsule,Extended Release 24hr 300 mg PO DAILY RF: 0 ketorolac 10 mg tablet 10 mg PO Q6H 5 Days Qty: 20 RF: 0 amoxicillin-pot clavulanate [Augmentin] 875-125 mg tablet 1 tab PO BID Qty: 9 RF: 0 Discontinued promethazine 25 mg Tablet 25 mg PO TID PRNRF: 0 Discharge Instructions Additional Instructions: your blood work did not show any significant change from previous try taking the ativan for nausea. Do not take the oxycodone and ativan within 3 hours of each other take 1000mg tylenol and 600mg ibuprofen for pain every 6 hours follow up with your primary care provider within 1-2 weks if you have severe worsening pain, feel more ill or have high fevers return to the emergency department Medical Decision Making 63 yo female who recently had a CT of her abdomen and diagnosed with numberous mets in the liver and underwent biopsy [place] [facility] [place] [place] and subsequently was admitted here overnight with abd pain/n/v with repeat ct imaging showing ?enteritis otherwise unchanged CT. She comes in tonight as she continues to have pain and unable to keep anything down. She denies high fevers, bloody vomit or bilious vomit. She has a nondistended abdomen on exam and has pain throughout the abdomen without guarding or rebound. I suspect her symptoms are due to her numerous mets and also a component of psychosomatic symptoms. She has no chest pain or sob to suggest acs. She has no distention and has normal bowel sounds so doubt sbo. Will tx her symptoms with morphine and try zofran as toradol and promethazine are not significantly helping. we had a discussion about repeat imaging of her abdomen and at this time patient declines to have CT given 2 [address]'s in the past 2 weeks. pt still having dry heaving despite zofran, will try ativan. labs show no significant change from previous .Remains HD stable. Is now drinking and tolerating PO after ativan and does fell better, still with mild abdominal discomfort. Discussed CT imaging again but at this point she would like to try outpatient management and return if worsening given reassurring exam here with no gurading and only mild tenderness feel this is reasonable. Differential Diagnosis hepatic metastases, enteritis Medical Records Medical records reviewed: Yes I reviewed the patient's medical records. Lab Data Lab results reviewed: Yes I reviewed the patient's lab results. HPI General Mode of arrival: ambulatory. Date/Time Provider Initiated Documentation: 06/15/19 04:26. Limitations to Documentation: no limitations. Information obtained by: patient. History of Present Illness 63 year old F presents to the emergency department with the chief complaint of abdominal pain, described as moderate, Quality is described as aching, Patient started experiencing this week(s) (2) and it has been constant. No relieving factors improve symptom(s), No exacerbating factors reported . Patient notes nausea/vomiting. Patient did receive the following treatments prior to arrival, none Related Data Home Medications Medication Instructions Recorded Confirmed amoxicillin-pot clavulanate 1 tab PO BID #9 tab 06/12/19 06/15/19 [Augmentin] ketorolac 10 mg PO Q6H 5 Days #20 tab 06/12/19 06/15/19 venlafaxine [Effexor XR] 300 mg PO DAILY 06/12/19 06/15/19 lorazepam 1 mg PO TID PRN #20 tab 06/15/19 oxycodone 5 mg PO Q6H PRN #12 tab 06/15/19 Previous Rx's Medication Instructions Recorded amoxicillin-pot clavulanate 1 tab PO BID #9 tab 06/12/19 [Augmentin] ketorolac 10 mg PO Q6H 5 Days #20 tab 06/12/19 lorazepam 1 mg PO TID PRN #20 tab 06/15/19 oxycodone 5 mg PO Q6H PRN #12 tab 06/15/19 Allergies Allergy/AdvReac Type Severity Reaction Status Date / Time clarithromycin [From Biaxin] Allergy Severe Anaphylaxsi Unverified 06/15/19 04:33 s Penicillins Allergy Intermediate Skin Rash Unverified 06/15/19 04:33 General Stated Complaint: Nausea/Vomit/Diar ARABELLA: 3 Review of Systems Review of Systems All systems reviewed & are unremarkable except as noted in HPI and below Constitutional Denies chills, Denies fever(s) and Denies weakness Cardiovascular Denies chest pain and Denies dyspnea Respiratory Denies cough and Denies dyspnea Integumentary/Breasts Denies rash Neurologic Denies weakness [facility] Social History Smoking/Tobacco Use Status: Current every day Tobacco Type: cigarettes Smoking cigarettes per day: 4 Years smoked: 20 Alcohol Intake: current Alcohol Intake frequency: holidays/special occasions only Drug use: Never Substance use type: does not use Do you feel safe at home: Yes Do you feel safe in your relationship?: Yes Exam Const General: no acute distress Orientation: alert HENMT Head: normal to inspection Ears: external ears normal General nose exam: external nose normal Mouth: moist mucous membranes Eyes General: appearance normal, both eyes and all related structures Neck Neck: normal visual inspection Resp Effort & Inspection: normal respiratory effort and able to speak in complete sentences Cardio Rate: regular rate GI Palpation: soft and tender Skin General skin exam: no rashes or lesions noted Neuro General: alert and oriented x3 Extrem General: normal to inspection Psych Mental Status: mental status grossly normal Course Vital Signs Temperature 37.0 C 06/15/19 04:27 Pulse 112 H 06/15/19 04:27 Respiratory Rate 18 06/15/19 04:27 Blood Pressure 119/74 06/15/19 04:27 Pulse Oximetry 96 06/15/19 04:27 Temperature 37.0 C 06/15/19 04:27 Temperature Source Skin 06/15/19 04:27 Pulse 112 H 06/15/19 04:27 Respiratory Rate 18 06/15/19 04:27 Respiratory Effort 06/15/19 04:33 Blood Pressure 119/74 06/15/19 04:27 Blood Pressure Position Sitting 06/15/19 04:27 Pulse Oximetry 96 06/15/19 04:27 Oxygen Delivery Method Room Air 06/15/19 04:27 Oxygen Flow Rate 0 06/15/19 04:27 Pain Level 9 06/15/19 04:27
[2019-06-15] MEDS: Ondansetron 4 MG/2 ML VIAL IVP (04:47)
[2019-06-15] MEDS: Normal Saline 1,000 ML 1000 ML IV (04:48)
[2019-06-15] MEDS: Normal Saline Flush 10 ML SYR IVP (04:55)
[2019-06-15 05:06] LABS: Abs Immature Grans 0.05 k/cumm (0.0-0.09); Absolute Basophil Count 0.04 k/cumm (0.0-0.2); Absolute Eosinophil Count 0.16 k/cumm (0.0-0.7); Absolute Lymphocyte Count 2.66 k/cumm (1.2-3.4); Absolute Neutrophil Count 8.98 k/cumm (1.2-6.7); Basophils % 0.3; Eosinophils % 1.1; HGB 13.6 g/dL (12.0-15.5); Immature Grans % 0.3; Lymphocytes % 18.6; Mean Corp. HGB Concentration 34.9 g/dL (32.0-36.0); Mean Corpuscular Hemoglobin 33.5 pg (27.0-33.0); Mean Corpuscular Volume 96.1 fL (80-95); Mean Platelet Volume 11.5 fL (8.0-11.0); Monocytes % 16.9; Neutrophils % 62.8; Platelet Count 336 x1000/uL (130-400); RBC 4.06 m/cumm (4.00-5.20); RBC Distribution Width 14.2 % (11.7-14.6)
[2019-06-15 05:23] LABS: Lipase 502 U/L (73-393)
[2019-06-15 05:25] LABS: ALT 180 U/L (14-59); AST 365 U/L (15-37); Alkaline Phosphatase 616 U/L (46-116); Anion Gap 10.5 mmol/L (3-11); BUN 12 mg/dL (7-18); Bilirubin, Direct 1.61 mg/dL (0.00-0.20); Bilirubin, Total 2.2 mg/dL (0.2-1.0); CO2 26.5 mmol/L (21.0-32.0); CREATININE 0.58 mg/dL (0.55-1.02); Calcium 9.4 mg/dL (8.5-10.1); Chloride 102 mmol/L (98-107); Glucose 104 mg/dL (70-100); Potassium 4.2 mmol/L (3.5-5.1); Sodium 139 mmol/L (136-145); Total Protein 7.3 g/dL (6.4-8.2)
[2019-06-15 05:26] LABS: Absolute Monocyte Count 2.42 k/cumm (0.11-0.7); Diff Comment Agrees w/ Instrument; RBC Morphology Normal
[2019-06-15] MEDS: LORazepam 2 MG/ML VIAL 1 MG IVP (05:34)
[2019-06-15 05:36] LABS: PTT Activated 24.8 sec (21.0-31.4); Prothrombin Time 9.9 sec (9.3-11.0)
[2019-06-15 05:38] VITALS: BP 97/67; PULSE 96; RESP 24; O2SAT 94
[2019-06-15 06:24] VITALS: BP 104/68; PULSE 94; RESP 18; TEMP 37.1; O2SAT 99
--- NOTE | 2019-06-15 06:55 | NUR.NOTE ---
Referral faxed to [facility], Julian Wadsworth.Nursing Note:
== END 2019-06-15 06:30 | disposition home or self-care (01) ==
PROVIDERS: Emergency Provider Emergency Medicine; PCP Specialist/Technologist Athletic Trainer
DX: R11.2 Nausea with vomiting, unspecified (principal); C78.7 Secondary malignant neoplasm of liver and intrahepatic bile duct
CPT/HCPCS: 36415; 80053; 80076; 83690; 96361; 96374; 96375; 99284; 85025; 85610; 85730; J2060; J2405; J3490

== ENCOUNTER 2019-06-18 04:01 | Emergency (ER) | payer MEDICARE, SELFPAY ==
[2019-06-18] VITALS (30 sets, daily range): BP systolic 77–125; BP diastolic 31–80; PULSE 92–120; RESP 18–20; TEMP 36.3–36.5; O2SAT 85–95
--- NOTE | 2019-06-18 04:10 | ED.GENADUL_ITS ---
Discharge Plan Disposition Patient Disposition: HOME Condition: Good Discharge Details Chief Complaint: Abd Prob Clinical Impression: Abdominal pain, Nausea & vomiting Primary Care Provider: Julian Wadsworth ED Provider: Reynaldo Watson [place] Meds and New Rx's Prescriptions: Continued lorazepam 1 mg tablet 1 mg PO TID PRN (Reason: nausea and vomiting) Qty: 20 RF: 0 oxycodone 5 mg tablet 5 mg PO Q6H PRN (Reason: pain) Qty: 12 RF: 0 venlafaxine [Effexor XR] 150 mg Capsule,Extended Release 24hr 300 mg PO DAILY RF: 0 amoxicillin-pot clavulanate [Augmentin] 875-125 mg tablet 1 tab PO BID Qty: 9 RF: 0 Discharge Instructions Instructions: Acute Nausea and Vomiting (ED), Abdominal Pain (ED) Additional Instructions: Continue to use the oxycodone for pain. Ativan or Zofran for nausea and vomiting. Clear liquid/bland diet over the weekend. Follow-up with primary care next week as planned. Follow through on referral to oncology. Return to ED for fever, uncontrolled pain, persistent vomiting, other concerns or problems. Referrals: Julian Wadsworth [Primary Care Provider] - Medical Decision Making Patient doing better after fentanyl and Zofran. I reviewed the [facility] records. I reviewed her previous visit here for recurrent pain and vomiting. At this point I do not think imaging and labs are going to add anything. She is more comfortable although pain is starting to come back. We will give a fluid bolus and a little bit of morphine. Will observe to make sure comfortable and able to tolerate p.o. 06:45 - Patient slept and seems to be doing well this morning. She is tolerating myah jad. Still has pain but it is tolerable. I will continue her on oxycodone over the weekend for pain. I will give her Zofran ODT to use as well as the Ativan prescribed earlier if needed for nausea and vomiting. She has follow-up with primary care this week. She has been referred to oncology but has not yet had an appointment. Return to the ED if fever, uncontrolled pain, uncontrolled vomiting, other concerns or problems. Medical Records Medical records reviewed: Yes I reviewed the patient's medical records. HPI General Mode of arrival: EMS . Date/Time Provider Initiated Documentation: 06/18/19 04:07 . Limitations to Documentation: no limitations . Information obtained by: patient, RN notes reviewed and old records reviewed . HPI Narrative: Patient presents to ED by ambulance with abdominal pain, nausea and vomiting. Patient has recently been diagnosed with metastatic disease to the liver. She is finishing a course of antibiotics for inflammatory changes seen on CAT scan last week. She intermittently develops severe right-sided abdominal pain with nausea and vomiting. She has oxycodone and Ativan at home. Did not help tonight and she needed to call EMS. She is better after fentanyl and Zofran given by EMS. She has yet to follow-up with oncology. 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 Primary site not known. Related Data Home Medications Medication Instructions Recorded Confirmed amoxicillin-pot clavulanate 1 tab PO BID #9 tab 06/12/19 06/18/19 [Augmentin] venlafaxine [Effexor XR] 300 mg PO DAILY 06/12/19 06/18/19 lorazepam 1 mg PO TID PRN #20 tab 06/15/19 06/18/19 oxycodone 5 mg PO Q6H PRN #12 tab 06/18/19 Previous Rx's Medication Instructions Recorded amoxicillin-pot clavulanate 1 tab PO BID #9 tab 06/12/19 [Augmentin] lorazepam 1 mg PO TID PRN #20 tab 06/15/19 oxycodone 5 mg PO Q6H PRN #12 tab 06/18/19 Allergies Allergy/AdvReac Type Severity Reaction Status Date / Time clarithromycin [From Biaxin] Allergy Severe Anaphylaxsi Unverified 06/18/19 04:11 s Penicillins Allergy Intermediate Skin Rash Unverified 06/18/19 04:11 General ARABELLA: 3 Review of Systems Review of Systems As documented in HPI otherwise negative as below. Const: no fever, chills, weakness Resp: no cough, SOB, pleuritic pain CV: diaphoresis with pain; no CP, edema, syncope GI: abdominal pain, nausea, vomiting; no diarrhea Neuro: no headache, numbness, focal weakness, confusion PFSH Medical History Bipolar disorder (Acute) Liver metastases (Acute) Surgical History S/P hysterectomy (Acute) Social History Smoking/Tobacco Use Status: Current every day Tobacco Type: cigarettes Alcohol Intake: current Alcohol Intake frequency: holidays/special occasions only Drug use: Never Substance use type: does not use Do you feel safe at home: Yes Do you feel safe in your relationship?: Yes Exam Narrative Exam Narrative: Vitals: Afebrile. Tachycardic. Low room air sats. Const: WDWN female in NAD after receiving meds from EMS. HEENT: NC/AT. Normal facial exam. Eyes: Scleral icterus. Neck: Supple. Trachea midline. Lungs: Normal respiratory effort. Lungs are clear. Cor: RRR without murmur/gallop. GI: Soft. NT/ND. No guarding or rebound at this point. Neuro: A+O x 3. CN grossly in tact. Good strength and no focal deficit. Ext: No C/C/E. Skin: Diaphoretic.
[2019-06-18] MEDS: Normal Saline 250 ML 500 ML IV (04:50)
== END 2019-06-18 07:22 | disposition home or self-care (01) ==
PROVIDERS: Emergency Provider Emergency Medicine; PCP Specialist/Technologist Athletic Trainer
DX: R10.31 Right lower quadrant pain (principal); R11.2 Nausea with vomiting, unspecified; C7A.098 Malignant carcinoid tumors of other sites; C78.7 Secondary malignant neoplasm of liver and intrahepatic bile duct; C80.1 Malignant (primary) neoplasm, unspecified
CPT/HCPCS: 96361; 96374; 99284

== ENCOUNTER 2019-06-20 12:45 | Observation (INO) | payer MEDICARE, SELFPAY ==
[2019-06-20] VITALS (35 sets, daily range): BP systolic 59–136; BP diastolic 36–86; PULSE 84–101; RESP 11–21; TEMP 35.8–36.7; O2SAT 88–96
--- NOTE | 2019-06-20 12:57 | ED.GENADUL_ITS ---
Discharge Plan Disposition Patient Disposition: [facility] INPATIENT Condition: Stable Discharge Details Chief Complaint: Abd Prob Clinical Impression: Liver metastases, RUQ abdominal pain, Right lower quadrant abdominal pain Admit Date/Time: 06/20/19 17:39 Admit Provider: Hussein Trevino Attending Provider: Hussein Trevino Primary Care Provider: Julian Wadsworth ED Provider: Adria Mitchell Discharge Data Discharge Date/Time-TO BE ENTERED AT DEPARTURE: 06/20/19 18:20 Medical Decision Making Patient presenting to the emergency department for chief complaint of abdominal pain. Patient recently diagnosed with metastatic cancer. Patient has had multiple visits to the emergency department with inability to control her pain. Patient has significant abdominal tenderness specifically the right upper quadrant. Patient also tachycardic in the low 100s along with patient requiring oxygen and EMS stated O2 sats in the low 90s upper 80s. Beyond right upper quadrant tenderness physical exam is unremarkable nondiagnostic. Plan to check labs to compare to previous visits to the emergency department as this is patient's third visit, give fentanyl, give fluid bolus. Review of labs show no significant deviation from baseline except for mild increase of leukocytosis. Otherwise labs nondiagnostic. Given appropriate renal function, patient having diagnosis of cancer, elevated heart rate, and hypoxia plan on doing CT imaging of chest. Plan to include abdomen given that patient is having continued uncontrollable pain. Review of CT imaging shows no PE, does show metastasis to left basilar lung, otherwise no changes noted from previous CT imaging. Patient was given additional doses of fentanyl to control her pain. Given that this is patient's third visit to the emergency department with uncontrollable pain and not able to can control her symptoms on an outpatient basis with multiple efforts and including oral Dilaudid I did call and speak with hospitalist Dr. Trevino whom agreed to admit patient. Patient was agreeable to this plan of care. HPI General Mode of arrival: EMS . Date/Time Provider Initiated Documentation: 06/20/19 12:54 . Limitations to Documentation: no limitations . Information obtained by: patient and RN notes reviewed . History of Present Illness 63 year old F presents to the emergency department with the chief complaint of Abdominal pain, described as severe and similar to prior episodes, with intensity rated at 10. Quality is described as sharp, and is localized to the abdomen. Patient reports no radiation. Patient started experiencing this hour(s) (Worsening over the last 3 hours, but is been going on for greater than 2 weeks) and it has been colicky. No relieving factors improve symptom(s), No exacerbating factors reported . Patient notes no other symptoms.. Patient did receive the following treatments prior to arrival, other (Hydromorphone at approximately 10 AM) Related Data Home Medications Medication Instructions Recorded Confirmed venlafaxine [Effexor XR] 300 mg PO DAILY 06/12/19 06/20/19 ondansetron 4 mg PO Q6H PRN #20 tab 06/18/19 06/20/19 docusate sodium [Colace] 100 mg PO TID #90 cap 06/22/19 fentanyl [Duragesic] 25 mcg TRANSDERMAL Q72H #10 ea 06/22/19 hydromorphone 2 mg PO Q4H PRN #30 tab 06/22/19 omeprazole 40 mg PO DAILY@0730 #30 cap 06/22/19 polyethylene glycol 3350 [Miralax] 17 gm PO DAILY #30 each 06/22/19 sennosides [Senokot] 2 tab PO HS #60 tab 06/22/19 Previous Rx's Medication Instructions Recorded ondansetron 4 mg PO Q6H PRN #20 tab 06/18/19 docusate sodium [Colace] 100 mg PO TID #90 cap 06/22/19 fentanyl [Duragesic] 25 mcg TRANSDERMAL Q72H #10 ea 06/22/19 hydromorphone 2 mg PO Q4H PRN #30 tab 06/22/19 omeprazole 40 mg PO DAILY@0730 #30 cap 06/22/19 polyethylene glycol 3350 [Miralax] 17 gm PO DAILY #30 each 06/22/19 sennosides [Senokot] 2 tab PO HS #60 tab 06/22/19 Allergies Allergy/AdvReac Type Severity Reaction Status Date / Time clarithromycin [From Biaxin] Allergy Severe Anaphylaxsi Unverified 06/20/19 13:23 s Penicillins Allergy Intermediate Skin Rash Unverified 06/20/19 13:23 General Stated Complaint: Abd Prob ARABELLA: 3 Review of Systems Constitutional Denies chills, Denies fever(s) and Reports poor appetite Cardiovascular Denies chest pain and Denies dyspnea Respiratory Denies cough and Denies dyspnea Gastrointestinal Reports as per HPI, Reports abdominal pain, Denies melena, Denies change in bowel habits, Denies constipation, Denies diarrhea, Reports nausea and Reports vomiting Genitourinary Denies dysuria and Denies pelvic pain Integumentary/Breasts Denies rash PFSH Medical History Bipolar disorder (Acute) Liver metastases (Acute) Surgical History History of bunionectomy of left great toe (Inactive ~07/2018) History of liver biopsy (Acute ~06/10/19) small cell neuroendocrine carcinoma S/P hysterectomy (Acute) also BSO Family History Father Prostate cancer metastatic to lung Mother Multiple myeloma Social History Smoking/Tobacco Use Status: Current every day Tobacco Type: cigarettes Smoking cigarettes per day: 3 Tobacco: How many years used: 15 Alcohol Intake: current Alcohol Intake frequency: holidays/special occasions only Drug use: Never Substance use type: does not use Household members: family Housing: apartment Number of Children: 2 number of grandchildren: 4 Do you feel safe at home: Yes Do you feel safe in your relationship?: Yes Exam Const General: cooperative Orientation: alert, awake and oriented x3 Resp Effort & Inspection: normal respiratory effort and able to speak in complete sentences Auscultation: clear to auscultation bilaterally Cardio Rate: regular rate Rhythm: regular rhythm Heart Sounds: S1 normal and S2 normal GI Inspection: non-distended Palpation: soft, firm in the RLQ and in the RUQ, guarding in the RLQ and in the RUQ, hepatomegaly, no masses, no pulsatile masses, not rigid, tender in the RLQ and in the RUQ and No ascites Auscultation: normal bowel sounds Back/Spine/Pelvis Back: no CVA tenderness Neuro General: alert, awake, oriented x3, gait normal and moves all extremities Course Vital Signs Temperature 36.5 C 06/20/19 12:43 Pulse 99 H 06/20/19 12:43 Respiratory Rate 20 06/20/19 12:43 Blood Pressure 113/76 06/20/19 12:43 Pulse Oximetry 92 L 06/20/19 12:43 Temperature 36.5 C 06/20/19 12:43 Temperature Source Temporal Artery Scan 06/20/19 12:43 Pulse 99 H 06/20/19 12:43 Respiratory Rate 20 06/20/19 12:43 Respiratory Effort Non-Labored 06/20/19 12:51 Blood Pressure 113/76 06/20/19 12:43 Blood Pressure Position Sitting 06/20/19 12:43 Pulse Oximetry 92 L 06/20/19 12:43 Oxygen Delivery Method Nasal Cannula 06/20/19 12:43 Oxygen Flow Rate 2 06/20/19 12:43 Pain Level 12 06/20/19 12:43
[2019-06-20] MEDS: fentaNYL 100 MCG/2 ML VIAL 25 MCG IVP ×2 (13:05→14:19)
[2019-06-20] MEDS: Normal Saline 500 ML IV (13:07)
[2019-06-20 13:12] LABS: Abs Immature Grans 0.05 k/cumm (0.0-0.09); Absolute Basophil Count 0.03 k/cumm (0.0-0.2); Absolute Eosinophil Count 0.12 k/cumm (0.0-0.7); Absolute Lymphocyte Count 3.07 k/cumm (1.2-3.4); Absolute Monocyte Count 2.81 k/cumm (0.11-0.7); Absolute Neutrophil Count 10.53 k/cumm (1.2-6.7); Basophils % 0.2; Eosinophils % 0.7; HGB 13.2 g/dL (12.0-15.5); Immature Grans % 0.3; Lymphocytes % 18.5; Mean Platelet Volume 11.4 fL (8.0-11.0); Monocytes % 16.9; Neutrophils % 63.4; RBC Distribution Width 14.1 % (11.7-14.6); White Blood Cell Count 16.61 k/cumm (4.4-10.8)
[2019-06-20 13:28] LABS: ALT 120 U/L (14-59); AST 331 U/L (15-37); Albumin 3.1 g/dL (3.4-5.0); Alkaline Phosphatase 568 U/L (46-116); Anion Gap 11.8 mmol/L (3-11); BUN 18 mg/dL (7-18); Bilirubin, Total 2.5 mg/dL (0.2-1.0); CO2 25.2 mmol/L (21.0-32.0); CREATININE 0.81 mg/dL (0.55-1.02); Calcium 9.4 mg/dL (8.5-10.1); Chloride 99 mmol/L (98-107); Diff Comment Diff Reviewed; Glucose 97 mg/dL (70-100); Lipase 440 U/L (73-393); Macrocytosis 2+; Platelet Count 428 x1000/uL (130-400); Polychromasia Present; Potassium 4.6 mmol/L (3.5-5.1); Sodium 136 mmol/L (136-145); Stomatocytes 2+; Total Protein 8.1 g/dL (6.4-8.2)
[2019-06-20 13:29] LABS: Poikilocytes 1+
[2019-06-20] MEDS: Normal Saline Flush 10 ML SYR IVP ×2 (13:36→15:35)
--- NOTE | 2019-06-20 14:26 | DI.CT_ITS ---
SYMPTOMS/DIAGNOSIS: TACHYCARDIC, HYPOXIC, ABDOMINAL PAIN, NEW DIAGNOSIS OF METASTATIC CANCER CT OF THE CHEST, ABDOMEN AND PELVIS: Comparison is made with abdominal and pelvic CT of May,. The exam is mildly limited by patient motion. CHEST: CT angiography was performed with multi slice acquisition and multi planar and 3D reconstruction. There is no evidence of aortic dissection or pulmonary emboli. There is a mass adjacent to the left superior hilum adjacent to the aorta and pulmonary arteries. The pulmonary arteries extend through the mass and are mildly attenuated. There is also narrowing of the pulmonary veins. No pleural or pericardial effusion is seen. No mediastinal adenopathy is seen. Lung windows show a mass around the left superior hilum and extending along the aorta. An additional mass is seen more superiorly and anteriorly, which may be contiguous with the main mass. There is mild atelectasis at the lung bases, right greater than left. No gross lytic or blastic bony lesions are seen. IMPRESSION: A 5.5 x 3.2 x 6.7 cm mass around the left superior hilum with mild vascular attenuation. The findings are consistent with primary lung carcinoma. ABDOMINAL AND PELVIC CT: The liver is again noted to be quite enlarged and show innumerable low density lesions consistent with metastatic disease. No biliary dilatation or gallbladder distention is seen. The pancreas, spleen, kidneys and adrenals are unremarkable. There is no adenopathy or bowel dilatation. There is no free air or free fluid. IMPRESSION: Hepatic metastases. No acute abnormality in the abdomen or pelvis.
[2019-06-20] MEDS: Ondansetron 4 MG/2 ML VIAL IVP (14:59)
[2019-06-20] MEDS: Omnipaque 350 MG/ML 100 ML BTL IJ (15:35)
--- NOTE | 2019-06-20 16:00 | DI.VRAD_ITS ---
EXAM: CT Angiography Chest With Contrast EXAM DATE/TIME: 06/20/2019 2:42 PM CLINICAL HISTORY: 63 years old, female; Other: Tachycardic, hypoxic; Other: Abdominal pain TECHNIQUE: Imaging protocol: Computed tomographic angiography of the chest with intravenous contrast. 3D rendering: MIP reconstructed images were created and reviewed. Radiation optimization: All CT scans at this facility use at least one of these dose optimization techniques: automated exposure control; mA and/or kV adjustment per patient size (includes targeted exams where dose is matched to clinical indication); or iterative reconstruction. Contrast material: OMNIPAQUE 350; Contrast volume: 100 ml; Contrast route: IV; COMPARISON: [facility] CHEST 2 VIEWS PA,LAT 04/29/2018 5:16 AM FINDINGS: Pulmonary arteries: See Mediastinum Finding. Aorta: Mild atherosclerotic change present in the vasculature. Lungs: Mild bibasilar atelectasis. Mild COPD. Pleural space: Unremarkable. No pneumothorax. No pleural effusion. Heart: Unremarkable. No cardiomegaly. No pericardial effusion. Mediastinum: There is a soft tissue mass at the left upper mediastinal and suprahilar region measuring up to 4.5 cm. It partially encases the left upper lobe pulmonary artery. Lymph nodes: Unremarkable. No enlarged lymph nodes. Bones/joints: Unremarkable. No acute fracture. Soft tissues: Unremarkable. IMPRESSION: 1. No evidence for pulmonary embolus. 2. Left lung mediastinal and hilar mass likely represents primary lung neoplasm. EXAM: CT Angiography Abdomen With Contrast EXAM DATE/TIME: 06/20/2019 2:42 PM CLINICAL HISTORY: 63 years old, female; Other: Tachycardic, hypoxic; Other: Abdominal pain TECHNIQUE: Imaging protocol: Computed tomographic angiography images of the abdomen with intravenous contrast material. 3D rendering: MIP reconstructed images were created and reviewed. Radiation optimization: All CT scans at this facility use at least one of these dose optimization techniques: automated exposure control; mA and/or kV adjustment per patient size (includes targeted exams where dose is matched to clinical indication); or iterative reconstruction. COMPARISON: [facility] CHEST 2 VIEWS PA,LAT 04/29/2018 5:16 AM FINDINGS: VASCULATURE: Aorta: No aortic aneurysm. No aortic dissection. Celiac trunk and mesenteric arteries: No occlusion or significant stenosis. Renal arteries: No occlusion or significant stenosis. ABDOMEN: Liver: There are innumerable low density hepatic lesions consistent with diffuse metastatic disease and associated hepatic enlargement. Gallbladder and bile ducts: Normal. No calcified stones. No ductal dilation. Pancreas: Normal. No ductal dilation. Spleen: Normal. No splenomegaly. Adrenals: Normal. No mass. Kidneys and ureters: Normal. No hydronephrosis. Stomach and bowel: Unremarkable. No obstruction. No mucosal thickening. Reproductive: Status post hysterectomy. Intraperitoneal space: Trace free fluid. Bones/joints: Moderate lumbar spondylosis. Soft tissues: Unremarkable. Lymph nodes: Unremarkable. No enlarged lymph nodes. IMPRESSION: Hepatic metastases. COMMENT: Preliminary interpretation is based on receipt of 940 image(s). A final report will be issued subsequently. Dictated and Authenticated by: Sandra Messer MD. Ordering:ANTONIO Covington MD
--- NOTE | 2019-06-20 19:37 | HPE_ITS ---
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 Given small cell carcinoma's predisposition to early mets to brain, I am going to order CT of brain w/ contrast for tomorrow. I will hydrate her overnight and recheck her BMP in the a.m. to be sure her renal function can handle repeat dye contrast CT study tomorrow given that she had a CTA of her chest and abdomen and pelvis today. If she has brain mets then she will need to see radiation oncology as well as medical oncology. Palliative medicine consult has been requested per ER attending. (2) RUQ abdominal pain: Current visit: Yes Status: Acute fentanyl seems to be helping with her pain. Once we have determined her dosing needs then we can convert her to fentanyl patch. History of Present Illness Chief Complaint: abdominal pains Narrative: 63-year-old female recently diagnosed with metastatic cancer of unknown primary. Metastasis include liver as well as lungs. Patient presents to the emergency department with intractable abdominal pain. Pain is been present for more than 3 weeks. She was first found to have liver metastasis when she presented to the emergency department on June 01, 2019 with a one-week history of abdominal pain. At that time CT scan demonstrated innumerable liver lesions consistent with metastatic disease. Since that time she is re-presented to the emergency department on June 11, 2019 with continued right upper quadrant abdominal pain. She had a liver biopsy performed at [facility] on June 10, 2019. Repeat CT scan was performed on June 11, 2019 and continued to show thickening of her stomach as well as multiple liver metastasis. Additional findings she has some inflammatory changes of her cecum and proximal colon and was admitted by Dr. Gentry Abraham for treatment of colitis. She was started on IV Zosyn and discharged the next day on June 12, 2019 and continued outpatient treatment with Augmentin and given Toradol for her pain. She came back to the emergency department on June 15, 2019 with continued abdominal pain with no fevers or vomiting. She is treated in the emergency department with IV morphine and Zofran and Toradol and discharged home on oxycodone and lorazepam. She presented again to the emergency department on June 18, 2019 with intractable pain. At that time her oxycodone and Ativan were discontinued and she was started on hydromorphone and Zofran. In spite of this she continues to have intractable pain in the right upper quadrant without radiation. Repeat diagnostic imaging was performed including a CT of her chest abdomen and pelvis. No pulmonary embolus was demonstrated. Chest CT showed left lung mediastinal and hilar mass as well as COPD. And CT of the abdomen shows hepatic metastasis similar to previous studies. Review of Systems Constitutional Reports anorexia, Reports fatigue, Reports poor appetite and Reports weight loss Eyes Reports system reviewed and no additional complaints, except as docu ENT Reports system reviewed and no additional complaints, except as docu Cardiovascular Reports system reviewed and no additional complaints, except as docu Respiratory Reports system reviewed and no additional complaints, except as docu Gastrointestinal Reports as per HPI, Reports abdominal pain, Reports early satiety, Reports nausea and Reports vomiting Musculoskeletal Reports system reviewed and no additional complaints, except as docu Integumentary/Breasts Reports system reviewed and no additional complaints, except as docu Neurologic Reports system reviewed and no additional complaints, except as docu Psychiatric Reports system reviewed and no additional complaints, except as docu Endocrine Reports as per HPI and Reports fatigue Hematologic/Lymphatic Reports system reviewed and no additional complaints, except as docu Allergic/Immunologic Reports system reviewed and no additional complaints, except as docu PFSH Medical History (Updated 06/20/19 @ 21:17 by Hussein Trevino) Bipolar disorder (Acute) Liver metastases (Acute) Surgical History (Updated 06/20/19 @ 21:07 by Hussein Trevino) History of bunionectomy of left great toe (Inactive ~07/2018) History of liver biopsy (Acute ~06/10/19) small cell neuroendocrine carcinoma S/P hysterectomy (Acute) also BSO Family History (Updated 06/20/19 @ 21:09 by Hussein Trevino) Father Prostate cancer metastatic to lung Mother Multiple myeloma Social History (Updated 06/20/19 @ 21:10 by Hussein Trevino) Smoking/Tobacco Use Status: Current every day Tobacco Type: cigarettes Smoking cigarettes per day: 3 Tobacco: How many years used: 15 Alcohol Intake: current Alcohol Intake frequency: holidays/special occasions only Drug use: Never Substance use type: does not use Household members: family Housing: apartment Number of Children: 2 number of grandchildren: 4 Do you feel safe at home: Yes Do you feel safe in your relationship?: Yes Meds Home Medications Medication Instructions Recorded Confirmed Type amoxicillin-pot clavulanate 1 tab PO BID #9 tab 06/12/19 06/18/19 Rx [Augmentin] venlafaxine [Effexor XR] 300 mg PO DAILY 06/12/19 06/20/19 History hydromorphone 2 mg PO Q6H PRN #14 tab 06/18/19 06/20/19 Rx ondansetron 4 mg PO Q6H PRN #20 tab 06/18/19 06/20/19 Rx Allergies Allergy/AdvReac Type Severity Reaction Status Date / Time clarithromycin [From Biaxin] Allergy Severe Anaphylaxsi Unverified 06/20/19 13:23 s Penicillins Allergy Intermediate Skin Rash Unverified 06/20/19 13:23 Exam Const General: cooperative and ill appearing chronically Nutritional Appearance: average body habitus Orientation: alert, awake and oriented x3 Resp Effort & Inspection: normal respiratory effort and able to speak in complete sentences Auscultation: bronchovesicular breath sounds bilaterally Cardio Jugular venous pressure: no JVD Palpation: normal PMI Rate: regular rate Rhythm: regular rhythm Heart Sounds: S1 normal, S2 normal, normal, physiologic split S2 and murmur systolic early, II/ and at the base Bruits: no abdominal aortic bruits Pulses: normal peripheral pulses GI Inspection: distended Palpation: firm in the RUQ and hepatomegaly Percussion: dullness to percussion Auscultation: normal bowel sounds Rectal Exam - female: deferred General: bladder normal to palpation and No CVA tenderness Bimanual Exam- Vagina & Uterus: bladder normal to palpation Back/Spine/Pelvis Back: no CVA tenderness Cervical Spine: normal cervical lordosis Thoracic/Lumbar Spine: thoracic and lumbar spine normal to inspection Skin General skin exam: no rashes or lesions noted, elasticity normal and turgor normal Neuro General: alert, awake, oriented x3, moves all extremities, normal light touch, pain and propioception, no focal motor deficits and CN's II-XI intact bilaterally Extrem General: normal to inspection, full ROM, normal capillary refill, no joint enlargement, no clubbing, cyanosis or edema and no calf tenderness Psych Appearance: grossly normal Mental Status: mental status grossly normal Speech and Movement: speech and movement normal Mood: congruent mood Affect: normal affect Attitude: cooperative Thought Process: normal Thought Content: normal Insight: insight good Judgment: judgment good Results Imaging Abdomen CT scan report/results: report reviewed CT scan - chest: report reviewed Labs : 06/20/19 12:50 06/20/19 12:50 Laboratory Results - last 24 hr 06/20/19 06/20/19 12:50 12:50 WBC 16.61 H RBC 4.00 Hgb 13.2 Hct 40.0 MCV 100.0 H MCH 33.0 MCHC 33.0 RDW 14.1 Plt Count 428 H MPV 11.4 H Immature Gran % 0.3 Neutrophils % 63.4 Lymphocytes % 18.5 Monocytes % 16.9 Eosinophils % 0.7 Basophils % 0.2 Absolute Neutrophils 10.53 H Absolute Lymphocytes 3.07 Absolute Monocytes 2.81 H Absolute Eosinophils 0.12 Absolute Basophils 0.03 Differential Comment Diff reviewed RBC Morphology See below Polychromasia Present Poikilocytosis 1+ Macrocytosis 2+ Stomatocytes 2+ Sodium 136 Potassium 4.6 Chloride 99 Carbon Dioxide 25.2 Anion Gap 11.8 H BUN 18 Creatinine 0.81 Estimated GFR/1.73 m2 >= 60.00 Glucose 97 Calcium 9.4 Total Bilirubin 2.5 H AST 331 H ALT 120 H Alkaline Phosphatase 568 H Total Protein 8.1 Albumin 3.1 L Lipase 440 H Last Vital Signs Temp 36.5 C 06/20/19 19:00 Pulse 93 H 06/20/19 19:00 Resp 14 06/20/19 19:00 BP 125/86 06/20/19 19:00 Pulse Ox 96 06/20/19 19:00
[2019-06-20] MEDS: fentaNYL 100 MCG/2 ML VIAL IVP ×2 (20:07→22:28)
[2019-06-20] MEDS: Enoxaparin 40 MG/0.4 ML SYR SC (20:07)
[2019-06-20] MEDS: Normal Saline 1,000 ML 100 ML IV (21:30)
[2019-06-21] MEDS: fentaNYL 100 MCG/2 ML VIAL IVP ×2 (00:57→03:38)
[2019-06-21 03:31] VITALS: BP 135/86; PULSE 89; RESP 21; TEMP 37.5; O2SAT 98
[2019-06-21] MEDS: HYDROmorphone 2 MG TAB PO ×3 (03:56→22:14)
[2019-06-21] MEDS: Normal Saline 1,000 ML 100 ML IV ×2 (06:47→15:27)
[2019-06-21 07:17] LABS: Abs Immature Grans 0.06 k/cumm (0.0-0.09); Absolute Eosinophil Count 0.06 k/cumm (0.0-0.7); Basophils % 0.2; Eosinophils % 0.5; HCT 36.8 % (36.0-46.0); Immature Grans % 0.5; Lymphocytes % 15.6; Mean Corp. HGB Concentration 32.6 g/dL (32.0-36.0); Mean Corpuscular Hemoglobin 32.9 pg (27.0-33.0); Mean Corpuscular Volume 100.8 fL (80-95); Mean Platelet Volume 11.2 fL (8.0-11.0); Monocytes % 19.5; Neutrophils % 63.7; Platelet Count 358 x1000/uL (130-400); RBC 3.65 m/cumm (4.00-5.20); RBC Distribution Width 14.3 % (11.7-14.6); White Blood Cell Count 12.59 k/cumm (4.4-10.8)
[2019-06-21 07:18] LABS: Absolute Basophil Count 0.03 k/cumm (0.0-0.2); Absolute Lymphocyte Count 1.96 k/cumm (1.2-3.4); Absolute Monocyte Count 2.46 k/cumm (0.11-0.7); Absolute Neutrophil Count 8.02 k/cumm (1.2-6.7)
[2019-06-21 07:26] LABS: Prothrombin Time 9.9 sec (9.3-11.0)
[2019-06-21 07:40] VITALS: BP 119/78; PULSE 88; RESP 17; TEMP 36.2; O2SAT 91
[2019-06-21 07:40] LABS: ALT 119 U/L (14-59); AST 346 U/L (15-37); Albumin 1.4 g/dL (3.4-5.0); Alkaline Phosphatase 525 U/L (46-116); Anion Gap 12.6 mmol/L (3-11); BUN 15 mg/dL (7-18); Bilirubin, Total 2.2 mg/dL (0.2-1.0); CO2 24.4 mmol/L (21.0-32.0); CREATININE 0.62 mg/dL (0.55-1.02); Chloride 101 mmol/L (98-107); Glucose 98 mg/dL (70-100); Magnesium 2.1 mg/dL (1.8-2.4); Potassium 4.1 mmol/L (3.5-5.1); Sodium 138 mmol/L (136-145); Total Protein 7.2 g/dL (6.4-8.2)
[2019-06-21 07:52] LABS: Diff Comment Agrees w/ Instrument; Macrocytosis 1+
[2019-06-21] MEDS: Venlafaxine 150 MG CAPCR 300 MG PO (09:15)
[2019-06-21] MEDS: fentaNYL 25 MCG PATCH TD (10:00)
[2019-06-21 11:40] VITALS: BP 118/77; PULSE 84; RESP 19; TEMP 36.4; O2SAT 92
[2019-06-21] MEDS: Ondansetron 4 MG/2 ML VIAL IVP (12:21)
--- NOTE | 2019-06-21 14:08 | INITIAL_ITS ---
Care Management Initial Assess REASON FOR HOSPITALIZATION:: Metastatic Cancer, Pain Control PAST MEDICAL HISTORY/PAST SURGICAL HISTORY:: Bipolar disorder, Liver metastases, hysterectomy, bunionectomy of left great toe, liver biopsy PREVIOUS FUNCTIONAL STATUS/SOCIAL/FAMILY SUPPORTS:: Ashley previously resided in a rented home in [place], [place], with her son Wilfredo. Ashley has been disabled and not currently employed. Katie has two additional children, a daughter Rina and a son who resides with his and children in [place]. Ashley reports a supportive family including several sisters who have agreed to come from [place] to help her out, if needed. Ashley previously functioned independently in the community and was able to perform her own ADLs, but more recently is struggling with unmanageable pain and has presented to the [facility] ED five times since mid May. Ashley reports she recently moved in with her daughter Rina due to increased struggles medically. She reports her daughter's fiance and their two daughters also reside in the home. She reports feeling happy about this arrangement and is able to watch the children when needed for her daughter. CURRENT FUNCTIONAL STATUS:: Ashley is sitting up in bed when CM meets with her, she is quite pleasant in interaction and reports feeling much relief at not currently being in pain. She is apologetic for feeling tired though engages well with this automobile service writer. Has patient been provided with information about the portal?: Yes Did the patient sign up for the portal?: No CODE STATUS:: Full Code INSURANCE COVERAGE / FINANCIAL ISSUES:: MCR CURRENT HOME/COMMUNITY SERVICES/EQUIPMENT:: No current services/equipment reported. PRIMARY CARE PHYSICIAN:: Julian Wadsworth. POTENTIAL DISCHARGE NEEDS:: LONRA determination, AD, Palliative Care consult- discussed with Ashley who is in agreement. PATIENT/FAMILY EDUCATION NEEDS:: Review of discharge instructions, community based supports, self management needs upon discharge [employer]. ANTICIPATED BARRIERS TO DISCHARGE:: Pain management, self care needs. TRANSPORTATION:: Via private vehicle with family. PLAN:: Ashley will return to her daughter's home when ready per MD. Anticipate she will follow up with oncology, have a pain control plan and a palliative care consult-she reports her sister will be arriving from [place] tomorrow and will likely participate in discussion. Ashley will follow up with her outpatient providers and transport home with family. CM will continue to support discharge planning considerations.
--- NOTE | 2019-06-21 14:40 | W.PM.PROGNOT ---
Date of Service Date of service: 06/21/19 Time of Service: 14:40 Assessment and Plan (1) RUQ abdominal pain: Current visit: Yes Status: Acute Initiate Duragesic patch and titrate as able. Continue IV Dilaudid on a prn basis for significant pain, and oral oxycodone for moderate pain. Ensure bowel regimen. 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 Check CT Head to ensure lack of brain mets. Will ensure oncology follow-up is scheduled at time of discharge. (3) DVT prophylaxis: Current visit: Yes Status: Acute SC Enoxaparin. Ensure PPI for GI Prophylaxis as well. Subjective Interval history since last seen: 63-year-old woman with a recently diagnosed malignancy, with mets to the lung and liver, admitted from [facility] Emergency Department on 06/20 for pain control. Mrs. Kaiser has evidence of metastatic cancer, with CT Guided biopsy results in late May showing evidence of a Small Cell Neuroendocrine Carcinoma, reportedly with mets to the liver and lungs. She has not yet established with oncology, and has been experiencing significant discomfort and intractable abdominal pain. She has been seen in the ED on multiple occasions for pain control, without adequate control with attempts at treatment with Oxycodone initially and then hydromorphone. Given her continued discomfort she was admitted for inpatient pain control. This morning Mrs. Kaiser reports some improvement in her pain utilizing IV Dilaudid and Fentanyl overnight. No other events reported. She remains afebrile. Exam Narrative Exam Narrative: General: Patient appears comfortable, AAOX3, NAD. Tearful at time of exam. Neck: Supple CV: Regular, nontachycardic, S1S2, No rubs, murmurs, or gallops. Pulmonary: Clear to auscultation bilaterally, no crackles, wheezing, or rhonchi Abdomen: + Bowel Sounds, soft, nontender, nondistended Vascular: No lower extremity edema Psych: Normal mood and affect. Objective Objective Clinical Data: Abnormal lab results 06/21/19 06/21/19 Range/Units 07:00 07:00 WBC 12.59 H (4.4-10.8) k/cumm RBC 3.65 L (4.00-5.20) m/cumm MCV 100.8 H (80-95) fL MPV 11.2 H (8.0-11.0) fL Absolute Neutrophils 8.02 H (1.2-6.7) k/cumm Absolute Monocytes 2.46 H (0.11-0.7) k/cumm Anion Gap 12.6 H (3-11) mmol/L Total Bilirubin 2.2 H (0.2-1.0) mg/dL AST 346 H (15-37) U/L ALT 119 H (14-59) U/L Alkaline Phosphatase 525 H (46-116) U/L Albumin 1.4 L (3.4-5.0) g/dL Vital Signs Temperature 36.4 C L 06/21/19 11:40 Temperature Source Tympanic 06/21/19 11:40 Pulse 84 06/21/19 11:40 Pulse Rhythm Regular 06/21/19 09:00 Pulse Strength Normal 06/20/19 13:46 Pulse 90 06/20/19 15:32 Respiratory Rate 19 06/21/19 11:40 Respiratory Effort Non-Labored 06/21/19 09:00 Respiratory Depth Normal 06/21/19 09:00 Respiratory Pattern Normal 06/21/19 09:00 Blood Pressure 118/77 06/21/19 11:40 Blood Pressure Mean 93 06/20/19 15:32 Blood Pressure Position Supine 06/20/19 13:46 Pulse Oximetry 92 L 06/21/19 11:40 Oxygen Delivery Method Room Air 06/21/19 11:40 Oxygen Flow Rate 0 06/21/19 11:40 Pain Level 5 06/21/19 11:40 Intake & Output 06/20/19 06/21/19 06/21/19 23:59 11:59 23:59 Intake Total 1428.333 / 1428.333 Balance 1428.333 / 1428.333 Weight 84.2 kg 85.4 kg Intake: IV 1428.333 / 1428.333 Other: Comment voids in toilet. Flushed. Void not assessed at this time. Emesis Description Undigested Food Voiding Methods Toilet Laboratory Results WBC 12.59 k/cumm (4.4-10.8) H 06/21/19 07:00 RBC 3.65 m/cumm (4.00-5.20) L 06/21/19 07:00 Hgb 12.0 g/dL (12.0-15.5) 06/21/19 07:00 Hct 36.8 % (36.0-46.0) 06/21/19 07:00 MCV 100.8 fL (80-95) H 06/21/19 07:00 MCH 32.9 pg (27.0-33.0) 06/21/19 07:00 MCHC 32.6 g/dL (32.0-36.0) 06/21/19 07:00 RDW 14.3 % (11.7-14.6) 06/21/19 07:00 Plt Count 358 x1000/uL (130-400) 06/21/19 07:00 MPV 11.2 fL (8.0-11.0) H 06/21/19 07:00 Immature Gran % 0.5 06/21/19 07:00 63.7 06/21/19 07:00 15.6 06/21/19 07:00 19.5 06/21/19 07:00 0.5 06/21/19 07:00 0.2 06/21/19 07:00 Absolute Neutrophils 8.02 k/cumm (1.2-6.7) H 06/21/19 07:00 Absolute Lymphocytes 1.96 k/cumm (1.2-3.4) 06/21/19 07:00 Absolute Monocytes 2.46 k/cumm (0.11-0.7) H 06/21/19 07:00 Absolute Eosinophils 0.06 k/cumm (0.0-0.7) 06/21/19 07:00 Absolute Basophils 0.03 k/cumm (0.0-0.2) 06/21/19 07:00 Agrees w/ instrument 06/21/19 07:00 RBC Morphology See below 06/21/19 07:00 Present 06/20/19 12:50 1+ 06/20/19 12:50 1+ 06/21/19 07:00 2+ 06/20/19 12:50 PT 9.9 sec (9.3-11.0) 06/21/19 07:00 INR 1.0 (0.9-1.1) 06/21/19 07:00 Sodium 138 mmol/L (136-145) 06/21/19 07:00 Potassium 4.1 mmol/L (3.5-5.1) 06/21/19 07:00 Chloride 101 mmol/L (98-107) 06/21/19 07:00 Carbon Dioxide 24.4 mmol/L (21.0-32.0) 06/21/19 07:00 12.6 mmol/L (3-11) H 06/21/19 07:00 BUN 15 mg/dL (7-18) 06/21/19 07:00 0.62 mg/dL (0.55-1.02) 06/21/19 07:00 >= 60.00 (mL/min/1.73m2) 06/21/19 07:00 Glucose 98 mg/dL (70-100) 06/21/19 07:00 Calcium 9.0 mg/dL (8.5-10.1) 06/21/19 07:00 Magnesium 2.1 mg/dL (1.8-2.4) 06/21/19 07:00 2.2 mg/dL (0.2-1.0) H 06/21/19 07:00 AST 346 U/L (15-37) H 06/21/19 07:00 ALT 119 U/L (14-59) H 06/21/19 07:00 525 U/L (46-116) H 06/21/19 07:00 7.2 g/dL (6.4-8.2) 06/21/19 07:00 1.4 g/dL (3.4-5.0) L 06/21/19 07:00 440 U/L (73-393) H 06/20/19 12:50
[2019-06-21] MEDS: Docusate Sodium 100 MG CAP PO ×2 (15:24→22:15)
[2019-06-21 15:37] VITALS: BP 114/79; PULSE 59; RESP 17; TEMP 37.1; O2SAT 96
[2019-06-21] MEDS: Enoxaparin 40 MG/0.4 ML SYR SC (17:44)
[2019-06-21 19:24] VITALS: BP 103/74; PULSE 83; RESP 18; TEMP 36.9; O2SAT 92
[2019-06-21] MEDS: Senna TAB 2 TAB PO (22:15)
[2019-06-21 23:36] VITALS: BP 117/83; PULSE 91; RESP 17; TEMP 37.2; O2SAT 89
[2019-06-22] MEDS: Normal Saline 1,000 ML 100 ML IV (01:52)
[2019-06-22] MEDS: HYDROmorphone 2 MG TAB PO ×3 (02:24→13:19)
[2019-06-22 04:36] VITALS: BP 109/75; PULSE 83; RESP 16; TEMP 36.2; O2SAT 92
[2019-06-22] MEDS: Omeprazole 20 MG CAPCR 40 MG PO (07:53)
[2019-06-22 08:25] VITALS: BP 134/87; PULSE 84; RESP 18; TEMP 37.2; O2SAT 91
--- NOTE | 2019-06-22 08:30 | DI.CT_ITS ---
SYMPTOM/DIAGNOSIS: RULE OUT METS CONTRAST ENHANCED HEAD CT: A noncontrast exam was not performed. Subtle hemorrhage is not excluded on this exam. No enhancing mass identified. The ventricles are normal in size. No bony abnormalities are seen. The sinuses and mastoid air cells appear clear. IMPRESSION: No evidence of brain metastases.
[2019-06-22] MEDS: Omnipaque 350 MG/ML 100 ML BTL IJ (08:42)
--- NOTE | 2019-06-22 09:54 | PDOC.CMPRO ---
- If Service Date Differs Date of service: 06/22/19 Time of Service: 09:54 Care Management Progress Note S/O:Ashley was sitting up in bed when CM met with her. She was pleasant and smiling and happy to be going home. She Stated that she is very appreciative for all of Dr. Fu's efforts on her behalf. He was able to get [place] [facility] [place] She states she is ready to get started on a course of treatment. A:Ashley is a 63 year old woman admitted to [facility] on 06/20/19 for pain control for metastatic cancer. P:Ashley will return to her daughter's home when ready per MD. Anticipate she will follow up with oncology, have a pain control plan and a palliative care consult-she reports her sister will be arriving from [place] tomorrow and will likely participate in discussion. Ashley will follow up with her outpatient providers and transport home with family. CM will continue to support discharge planning considerations.
[2019-06-22] MEDS: Docusate Sodium 100 MG CAP PO ×2 (10:00→13:19)
--- NOTE | 2019-06-22 11:49 | DSE_ITS ---
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 Mrs. Kaiser has evidence of metastatic cancer, with CT Guided biopsy results in late May showing evidence of a Small Cell Neuroendocrine Carcinoma, reportedly with mets to the liver. CT of her chest shows a mass around the left superior hilum, consistent with a lung primary. She has not yet established with oncology, and has been experiencing significant discomfort and intractable abdominal pain. She has been seen in the ED on multiple occasions for pain control, without adequate control with attempts at treatment with Oxycodone initially and then hydromorphone. Given her continued discomfort she was admitted for inpatient pain control. Following admission Mrs. Kaiser was initiated on a duragesic patch, and continued on oral and IV Hydromorphone. She has not utilized IV pain medication overnight, and today reports vast improvement in her pain. No other events reported. She remains afebrile. Hospital Course: (1) RUQ abdominal pain: Continue Duragesic patch and titrate as needed. Will continue oral Dilaudid on a prn basis for breakthrough pain. 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 CT Head without mets. - [place] [facility] [place] was moved up to 2 days from today - Mrs. Kaiser will be seen by Dr. Chavis at 8:45 am on 06/24 in order to coordinate her treatment plan. (3) DVT prophylaxis: SC Enoxaparin. Ensure PPI for GI Prophylaxis as well. Home Meds and New Rx's Prescriptions: New omeprazole 20 mg Capsule,Delayed Release(Dr/Ec) 40 mg PO DAILY@0730 Qty: 30 RF: 0 fentanyl [Duragesic] 25 mcg/hr Patch 72 Hour 25 mcg transdermal Q72H Qty: 10 RF: 0 sennosides [Senokot] 8.6 mg Tablet 2 tab PO HS Qty: 60 RF: 0 docusate sodium [Colace] 100 mg Capsule 100 mg PO TID Qty: 90 RF: 0 polyethylene glycol 3350 [Miralax] 17 gram powder in packet 17 gm PO DAILY Qty: 30 RF: 0 Continued ondansetron 4 mg tablet,disintegrating 4 mg PO Q6H PRN (Reason: nausea and vomiting) Qty: 20 RF: 0 venlafaxine [Effexor XR] 150 mg Capsule,Extended Release 24hr 300 mg PO DAILY RF: 0 Changed hydromorphone 2 mg tablet 2 mg PO Q4H PRN (Reason: pain) Qty: 30 RF: 0 Discontinued amoxicillin-pot clavulanate [Augmentin] 875-125 mg tablet 1 tab PO BID Qty: 9 RF: 0 Discharge Instructions Activity:: No Strenuous Activity Equipment/Supplies:: No Equipment Needed Diet:: As Tolerated Discharge Orders Discharge Orders: Discharge Order (Routine); Ordered 06/22/19 Ordered By: Mason Fu DS: Data Vitals/I&O Vitals and I&O: Vital Signs Temperature 37.2 C 06/22/19 08:25 Temperature Source Tympanic 06/22/19 08:25 Pulse 84 06/22/19 08:25 Pulse Rhythm Regular 06/22/19 00:30 Pulse Strength Normal 06/20/19 13:46 Pulse 90 06/20/19 15:32 Respiratory Rate 18 06/22/19 08:25 Respiratory Effort 06/22/19 00:30 Respiratory Depth Normal 06/22/19 00:30 Respiratory Pattern Normal 06/22/19 00:30 Blood Pressure 134/87 06/22/19 08:25 Blood Pressure Mean 93 06/20/19 15:32 Blood Pressure Position Supine 06/20/19 13:46 Pulse Oximetry 91 L 06/22/19 08:25 Oxygen Delivery Method Room Air 06/22/19 08:25 Oxygen Flow Rate 0 09/03/19 08:25 Pain Level 5 06/22/19 08:25 Intake & Output 06/21/19 06/21/19 06/22/19 11:59 23:59 11:59 Intake Total 1428.333 / 2595.500 1167.167 / 2595.500 1250 / 1250 Output Total 50 / 50 Balance 1428.333 / 2545.500 1117.167 / 2545.500 1250 / 1250 Weight 85.4 kg 86.5 kg Intake: IV 1428.333 / 2355.500 927.167 / 2355.500 1000 / 1000 Oral 240 / 240 250 / 250 Output: Emesis 50 / 50 Other: Comment voids in toilet. Flushed. Void not assessed at this time. Voids in toilet. Flushed. Urine not assessed at this time. VOID X 1 Emesis Description Undigested Food Clear/Water Voiding Methods Toilet Toilet Toilet Completed studies during hospitalization [Text1]: Exam(s) 06/20/[address]:CT chest PE abd & pelvis w SYMPTOMS/DIAGNOSIS: TACHYCARDIC, HYPOXIC, ABDOMINAL PAIN, NEW DIAGNOSIS OF METASTATIC CANCER CT OF THE CHEST, ABDOMEN AND PELVIS: Comparison is made with abdominal and pelvic CT of May,. The exam is mildly limited by patient motion. CHEST: CT angiography was performed with multi slice acquisition and multi planar and 3D reconstruction. There is no evidence of aortic dissection or pulmonary emboli. There is a mass adjacent to the left superior hilum adjacent to the aorta and pulmonary arteries. The pulmonary arteries extend through the mass and are mildly attenuated. There is also narrowing of the pulmonary veins. No pleural or pericardial effusion is seen. No mediastinal adenopathy is seen. Lung windows show a mass around the left superior hilum and extending along the aorta. An additional mass is seen more superiorly and anteriorly, which may be contiguous with the main mass. There is mild atelectasis at the lung bases, right greater than left. No gross lytic or blastic bony lesions are seen. IMPRESSION: A 5.5 x 3.2 x 6.7 cm mass around the left superior hilum with mild vascular attenuation. The findings are consistent with primary lung carcinoma. ABDOMINAL AND PELVIC CT: The liver is again noted to be quite enlarged and show innumerable low density lesions consistent with metastatic disease. No biliary dilatation or gallbladder distention is seen. The pancreas, spleen, kidneys and adrenals are unremarkable. There is no adenopathy or bowel dilatation. There is no free air or free fluid. IMPRESSION: Hepatic metastases. No acute abnormality in the abdomen or pelvis. Exam(s) 06/22/[address]:CT head w SYMPTOM/DIAGNOSIS: RULE OUT METS CONTRAST ENHANCED HEAD CT: A noncontrast exam was not performed. Subtle hemorrhage is not excluded on this exam. No enhancing mass identified. The ventricles are normal in size. No bony abnormalities are seen. The sinuses and mastoid air cells appear clear. IMPRESSION: No evidence of brain metastases. FOR[facility]LY [facility] Medical History Bipolar disorder (Acute) Liver metastases (Acute) Surgical History History of bunionectomy of left great toe (Inactive ~07/2018) History of liver biopsy (Acute ~06/10/19) small cell neuroendocrine carcinoma S/P hysterectomy (Acute) also BSO Family History Father Prostate cancer metastatic to lung Mother Multiple myeloma Social History Smoking/Tobacco Use Status: Current every day Tobacco Type: cigarettes Tobacco: How many years used: 15 Alcohol Intake: current Alcohol Intake frequency: holidays/special occasions only Drug use: Never Substance use type: does not use Household members: family Housing: apartment Number of Children: 2 number of grandchildren: 4 Do you feel safe at home: Yes Do you feel safe in your relationship?: Yes
--- NOTE | 2019-06-22 13:24 | PDOC.CMDIS ---
- If Service Date Differs Date of service: 06/22/19 Time of Service: 13:24 LACE Index Scoring Tool - Questions: Length of Stay (in days): 2 Acuity (Admit via E.D.?): Yes Comorbidities: Metastatic Solid Tumor E.D. Visits: 7 - Answers: Total Score: 14 Risk of Readmission: High Risk Care Management Discharge Reason for Hospitalization: Metastatic Cancer, Pain Control Discharge Plan: Ashley will return to her daughter's home when discharged later today. She will follow up with oncology, have a pain control plan and have a palliative care consult on an outpatient basis. Ashley will follow up with her PCP and transport home with family. Patient/Family Education Needs: Discharge plan, limitations, follow up plan and Ask Me Three.
[2019-06-22 13:38] VITALS: BP 136/87; PULSE 103; RESP 18; TEMP 36.5; O2SAT 90
--- NOTE | 2019-06-22 13:50 | CHAPLAIN ---
Ashley was resting in bed when I visited. She was quick to tell me that she is being discharged, and returning to her daughter's home, (where she helps watch her grandchildren) and very happy about that. She wasn't interested in further conversation.
== END 2019-06-22 13:39 | disposition home or self-care (01) ==
LOC: ER 18:28 → MS 18:40
PROVIDERS: Admitting Provider Internal Medicine; Emergency Provider Nurse Practitioner Family; PCP Specialist/Technologist Athletic Trainer; Visit Provider Internal Medicine
DX: R10.11 Right upper quadrant pain (principal); G89.3 Neoplasm related pain (acute) (chronic); C7B.8 Other secondary neuroendocrine tumors; C7A.8 Other malignant neuroendocrine tumors
CPT/HCPCS: 36415; 71275; 74177; 80053; 83690; 96361; 96374; 99220; 99232; 99239; 99285; J1650; 70460; 83735; 85025; 85610; 99217; 99225; 99284; G0378; J2405; J3010; J3490

== ENCOUNTER 2019-06-28 10:29 | Outpatient (CLI) | payer MEDICARE, SELFPAY ==
[2019-06-28 11:03] LABS: Abs Immature Grans 0.24 k/cumm (0.0-0.09); Basophils % 0.2; Eosinophils % 0.2; HCT 34.3 % (36.0-46.0); HGB 11.4 g/dL (12.0-15.5); Immature Grans % 0.7; Lymphocytes % 6.1; Mean Corp. HGB Concentration 33.2 g/dL (32.0-36.0); Mean Corpuscular Hemoglobin 33.4 pg (27.0-33.0); Mean Corpuscular Volume 100.6 fL (80-95); Mean Platelet Volume 11.1 fL (8.0-11.0); Monocytes % 0.7; Platelet Count 331 x1000/uL (130-400); RBC 3.41 m/cumm (4.00-5.20); RBC Distribution Width 14.4 % (11.7-14.6)
[2019-06-28 11:28] LABS: ALT 168 U/L (14-59); AST 452 U/L (15-37); Albumin 2.8 g/dL (3.4-5.0); Alkaline Phosphatase 542 U/L (46-116); Anion Gap 7.9 mmol/L (3-11); BUN 15 mg/dL (7-18); Bilirubin, Total 1.9 mg/dL (0.2-1.0); CO2 28.1 mmol/L (21.0-32.0); CREATININE 0.64 mg/dL (0.55-1.02); Calcium 8.8 mg/dL (8.5-10.1); Chloride 100 mmol/L (98-107); Glucose 96 mg/dL (70-100); Potassium 4.6 mmol/L (3.5-5.1); Sodium 136 mmol/L (136-145)
[2019-06-28 11:30] LABS: Absolute Basophil Count 0.07 k/cumm (0.0-0.2); Absolute Eosinophil Count 0.07 k/cumm (0.0-0.7); Absolute Lymphocyte Count 2.13 k/cumm (1.2-3.4); Absolute Monocyte Count 0.24 k/cumm (0.11-0.7); Absolute Neutrophil Count 32.13 k/cumm (1.2-6.7); White Blood Cell Count 34.89 k/cumm (4.4-10.8)
[2019-06-28 11:31] LABS: Diff Comment Agrees w/ Instrument; Macrocytosis 3+; Neutrophils % 92.1; Stomatocytes 2+
[2019-06-28 11:33] LABS: LDH 2037 U/L (81-234)
== END 2019-06-28 10:49 ==
PROVIDERS: PCP Specialist/Technologist Athletic Trainer; Visit Provider Internal Medicine Hospice and Palliative Medicine
DX: C34.92 Malignant neoplasm of unspecified part of left bronchus or lung (principal); C78.7 Secondary malignant neoplasm of liver and intrahepatic bile duct; C77.9 Secondary and unspecified malignant neoplasm of lymph node, unspecified
CPT/HCPCS: 36415; 80053; 83615; 85025

== ENCOUNTER 2019-07-01 08:17 | Outpatient (CLI) | payer MEDICARE, SELFPAY ==
[2019-07-01 09:05] LABS: ALT 139 U/L (14-59); AST 205 U/L (15-37); Albumin 3.1 g/dL (3.4-5.0); Alkaline Phosphatase 673 U/L (46-116); Anion Gap 8.5 mmol/L (3-11); BUN 15 mg/dL (7-18); Bilirubin, Total 1.1 mg/dL (0.2-1.0); CO2 29.5 mmol/L (21.0-32.0); CREATININE 0.61 mg/dL (0.55-1.02); Calcium 9.1 mg/dL (8.5-10.1); Chloride 102 mmol/L (98-107); Glucose 104 mg/dL (70-100); LDH 472 U/L (81-234); Potassium 4.1 mmol/L (3.5-5.1); Sodium 140 mmol/L (136-145); Total Protein 7.5 g/dL (6.4-8.2)
== END 2019-07-01 08:37 ==
PROVIDERS: PCP Specialist/Technologist Athletic Trainer; Visit Provider Internal Medicine Hospice and Palliative Medicine
DX: C34.92 Malignant neoplasm of unspecified part of left bronchus or lung (principal); C78.7 Secondary malignant neoplasm of liver and intrahepatic bile duct
CPT/HCPCS: 36415; 80053; 83615

== ENCOUNTER 2019-07-26 07:17 | Outpatient (CLI) | payer MEDICARE, SELFPAY ==
[2019-07-26 08:01] LABS: Abs Immature Grans 0.03 k/cumm (0.0-0.09); HCT 33.1 % (36.0-46.0); Mean Corp. HGB Concentration 33.2 g/dL (32.0-36.0); Mean Corpuscular Hemoglobin 33.7 pg (27.0-33.0); Mean Corpuscular Volume 101.5 fL (80-95); Mean Platelet Volume 10.6 fL (8.0-11.0); RBC 3.26 m/cumm (4.00-5.20); RBC Distribution Width 14.7 % (11.7-14.6); White Blood Cell Count 8.35 k/cumm (4.4-10.8)
[2019-07-26 08:21] LABS: ALT 74 U/L (14-59); AST 50 U/L (15-37); Albumin 3.3 g/dL (3.4-5.0); Anion Gap 10.5 mmol/L (3-11); BUN 11 mg/dL (7-18); CO2 27.5 mmol/L (21.0-32.0); CREATININE 0.69 mg/dL (0.55-1.02); Calcium 8.9 mg/dL (8.5-10.1); Chloride 102 mmol/L (98-107); Glucose 111 mg/dL (70-100); Potassium 3.6 mmol/L (3.5-5.1); Sodium 140 mmol/L (136-145)
[2019-07-26 08:27] LABS: Platelet Count 74 x1000/uL (130-400)
[2019-07-26 08:28] LABS: Absolute Lymphocyte Count 3.01 k/cumm (1.2-3.4); Absolute Monocyte Count 0.92 k/cumm (0.11-0.7); Absolute Neutrophil Count 4.34 k/cumm (1.2-6.7); Atypical Lymphocytes % 3
[2019-07-26 08:29] LABS: Anisocytosis 1+; Diff Comment Manual Differential; Polychromasia Present
[2019-07-26 08:44] LABS: Alkaline Phosphatase 547 U/L (46-116); Bilirubin, Total 0.5 mg/dL (0.2-1.0); Total Protein 7.8 g/dL (6.4-8.2)
== END 2019-07-26 07:37 ==
PROVIDERS: Nurse Practitioner Adult Health; PCP Specialist/Technologist Athletic Trainer; Visit Provider Internal Medicine Hospice and Palliative Medicine
DX: C34.92 Malignant neoplasm of unspecified part of left bronchus or lung (principal); C78.7 Secondary malignant neoplasm of liver and intrahepatic bile duct
CPT/HCPCS: 36415; 80053; 85025

== ENCOUNTER 2019-11-08 13:06 | Outpatient (CLI) | payer MEDICARE, SELFPAY ==
[2019-11-08 13:40] LABS: Abs Immature Grans 0.01 k/cumm (0.0-0.09); Absolute Basophil Count 0.01 k/cumm (0.0-0.2); Absolute Eosinophil Count 0.06 k/cumm (0.0-0.7); Absolute Lymphocyte Count 2.36 k/cumm (1.2-3.4); Absolute Monocyte Count 1.47 k/cumm (0.11-0.7); Absolute Neutrophil Count 3.53 k/cumm (1.2-6.7); Basophils % 0.1; Eosinophils % 0.8; HCT 35.2 % (36.0-46.0); HGB 11.4 g/dL (12.0-15.5); Immature Grans % 0.1 %; Lymphocytes % 31.7; Mean Corp. HGB Concentration 32.4 g/dL (32.0-36.0); Mean Corpuscular Hemoglobin 36.5 pg (27.0-33.0); Mean Corpuscular Volume 112.8 fL (80-95); Mean Platelet Volume 10.2 fL (8.0-11.0); Monocytes % 19.8; Neutrophils % 47.5; Platelet Count 206 x1000/uL (130-400); RBC 3.12 m/cumm (4.00-5.20); RBC Distribution Width 12.8 % (11.7-14.6); White Blood Cell Count 7.44 k/cumm (4.4-10.8)
[2019-11-08 13:57] LABS: ALT 64 U/L (14-59); AST 44 U/L (15-37); Albumin 3.8 g/dL (3.4-5.0); Alkaline Phosphatase 216 U/L (46-116); Anion Gap 9.5 mmol/L (3-11); BUN 8 mg/dL (7-18); Bilirubin, Total 0.4 mg/dL (0.2-1.0); CO2 29.5 mmol/L (21.0-32.0); CREATININE 0.53 mg/dL (0.55-1.02); Calcium 9.2 mg/dL (8.5-10.1); Chloride 105 mmol/L (98-107); Glucose 104 mg/dL (74-106); LDH 190 U/L (81-234); Potassium 3.5 mmol/L (3.5-5.1); Sodium 144 mmol/L (136-145); Total Protein 7.3 g/dL (6.4-8.2)
[2019-11-08 14:25] LABS: Diff Comment Diff Reviewed; Macrocytosis 2+
[2019-11-08 14:26] LABS: Hypochromasia 1+
[2019-11-08 14:27] LABS: Poikilocytes 1+
== END 2019-11-08 13:26 ==
PROVIDERS: PCP Specialist/Technologist Athletic Trainer; Visit Provider Internal Medicine Hospice and Palliative Medicine
DX: C34.92 Malignant neoplasm of unspecified part of left bronchus or lung (principal)
CPT/HCPCS: 36415; 80053; 83615; 85025

== ENCOUNTER 2019-11-10 02:33 | Emergency (ER) | payer MEDICARE, SELFPAY ==
[2019-11-10 02:42] VITALS: BP 141/87; PULSE 85; RESP 16; TEMP 36.6; O2SAT 97
--- NOTE | 2019-11-10 02:46 | ED.GENADUL_ITS ---
Discharge Plan Disposition Patient Disposition: HOME Condition: Good Discharge Details Chief Complaint: GenMedical Clinical Impression: Generalized pain, Cancer, metastatic to lung Primary Care Provider: Julian Wadsworth ED Provider: Reynaldo Watson [place] Meds and New Rx's Prescriptions: No Action polyethylene glycol 3350 [Miralax] 17 gram powder in packet 17 gm PO DAILY Qty: 30 RF: 0 venlafaxine [Effexor XR] 150 mg Capsule,Extended Release 24hr 150 mg PO DAILY RF: 0 dexamethasone 4 mg Tablet 4 mg PO BID RF: 0 ondansetron 4 mg Tablet,Disintegrating 4 mg PO Q6H PRNRF: 0 Discharge Instructions Instructions: Fentanyl (Absorbed through the skin) Additional Instructions: Apply the fentanyl patch when you return home. Have your daughter drive you to your appointment today at [facility]. Keep that appointment as it will be important to see your physician there. Return to ED for any acute neurologic changes, shortness of breath, new pain. Referrals: Mercedes Chavis [ NON-[facility] STAFF PHYSICIAN] - Medical Decision Making Patient here with worsening generalized bone pain, abdominal pain, headaches since receiving immunotherapy on the . Has appointment to be seen by oncology in [address] [facility]. Has no pain medication at home currently except [id number] Tylenol or Motrin. She did take Motrin earlier. She had been on fentanyl in the past and it was assumed she still had patches at home. She reports that she turned those into the pharmacy when she no longer needed them this fall. She drove herself here. Will provide a 25 mcg transdermal fentanyl patch for her to place on herself when she returns home. She will then have her daughter drive her to her appointment at [facility] later this morning. HPI General Mode of arrival: ambulatory . Date/Time Provider Initiated Documentation: 11/10/19 02:40 . Limitations to Documentation: no limitations . Information obtained by: patient, RN notes reviewed and old records reviewed . HPI Narrative: Patient presents to ED for evaluation of pain. Patient has metastatic lung cancer to liver and brain. She underwent immunotherapy infusion on the . Since then she has had increased pain which has been worsening as well as nausea. She been having headaches, bone pain, abdominal pain. She has an appointment to be seen at [facility] by her oncologist in the morning. However, she has been unable to sleep for the last 3 nights because of pain and was unable to take it any longer. She denies fever, cough, shortness of breath. She has nausea but is not so much worried about that as she is the pain. She has intermittent vomiting. She has no neurologic changes. The headaches have been bothering on and off for the last week or so and getting more severe. Per the note in the [facility] system regarding conversation with nurse today it appears patient was supposed to start using her fentanyl patches again. Patient reports that she returned those when she did not need them any longer this fall. Appears that there might of been a miscommunication in regards to that. Related Data Home Medications Medication Instructions Recorded Confirmed venlafaxine [Effexor XR] 150 mg PO DAILY 06/12/19 11/10/19 polyethylene glycol 3350 [Miralax] 17 gm PO DAILY #30 each 06/22/19 11/10/19 dexamethasone 4 mg PO BID 11/10/19 11/10/19 ondansetron 4 mg PO Q6H PRN 11/10/19 11/10/19 Previous Rx's Medication Instructions Recorded polyethylene glycol 3350 [Miralax] 17 gm PO DAILY #30 each 06/22/19 Allergies Allergy/AdvReac Type Severity Reaction Status Date / Time bupropion [From Wellbutrin] Allergy Severe Other (See Unverified 11/10/19 03:02 Comment) clarithromycin [From Biaxin] Allergy Severe Anaphylaxsi Unverified 11/10/19 02:48 s shellfish derived Allergy Severe Other (See Unverified 11/10/19 03:03 Comment) cefaclor Allergy Intermediate Skin Rash Unverified 11/10/19 03:02 erythromycin base Allergy Intermediate Other (See Unverified 11/10/19 03:02 Comment) Penicillins Allergy Intermediate Skin Rash Unverified 11/10/19 02:48 sulfamethoxazole Allergy Intermediate Skin Rash Unverified 11/10/19 03:02 [From Bactrim] trimethoprim [From Bactrim] Allergy Intermediate Skin Rash Unverified 11/10/19 03:02 ether Allergy Other (See Unverified 11/10/19 03:02 Comment) acetaminophen [From Vicodin] AdvReac Other (See Unverified 11/10/19 03:02 Comment) hydrocodone [From Vicodin] AdvReac Other (See Unverified 11/10/19 03:02 Comment) General ARABELLA: 3 Review of Systems Constitutional Constitutional: Denies chills, Denies fever(s), Reports headache(s), Reports poor appetite and Denies weakness ENT Ears, Nose, Mouth, and Throat: Reports headache(s) Cardiovascular Cardiovascular: Denies dyspnea Respiratory Respiratory: Denies cough and Denies dyspnea Gastrointestinal Gastrointestinal: Reports abdominal pain, Reports nausea and Reports vomiting Musculoskeletal Musculoskeletal: Denies abnormal gait and Denies numbness Neurologic Neurologic: Denies abnormal speech, Denies abnormal gait, Denies confusion, Reports headache(s), Denies numbness and Denies weakness Psychiatric Psychiatric: Denies confusion PFSH Medical History Bipolar disorder (Acute) Brain metastasis (Chronic) Liver metastases (Chronic) Stage IV adenocarcinoma of lung (Chronic) Surgical History History of bunionectomy of left great toe (Inactive ~07/2018) History of liver biopsy (Acute ~06/10/19) small cell neuroendocrine carcinoma S/P hysterectomy (Acute) also BSO Social History Smoking/Tobacco Use Status: Current every day Tobacco Type: cigarettes Years smoked: 20 Tobacco: How many years used: 15 Alcohol Intake: current Alcohol Intake frequency: holidays/special occasions only Drug use: Never Substance use type: does not use Household members: family Housing: apartment Number of Children: 2 number of grandchildren: 4 Do you feel safe at home: Yes Do you feel safe in your relationship?: Yes Exam Narrative Exam Narrative: Vitals: Afebrile. Elevated blood pressure otherwise normal vitals and room air pulse oximetry. Const: WDWN elderly female in NAD. HEENT: NC/AT. Normal facial exam. Eyes: Normal conjunctiva and sclera. Neck: Supple. Trachea midline. Lungs: Normal respiratory effort. Lungs are clear. Cor: RRR without murmur/gallop. Neuro: A+O x 3. Normal gait, mentation, speech. No gross motor or sensory deficit.
[2019-11-10 03:10] VITALS: RESP 16
[2019-11-10] MEDS: fentaNYL 25 MCG PATCH TD (03:19)
[2019-11-10 03:45] VITALS: RESP 16
== END 2019-11-10 03:30 | disposition home or self-care (01) ==
PROVIDERS: Emergency Provider Emergency Medicine; PCP Specialist/Technologist Athletic Trainer
DX: R52 Pain, unspecified (principal); C34.90 Malignant neoplasm of unspecified part of unspecified bronchus or lung; C78.7 Secondary malignant neoplasm of liver and intrahepatic bile duct; C79.31 Secondary malignant neoplasm of brain
CPT/HCPCS: 99283

== ENCOUNTER 2019-11-19 05:10 | Outpatient (RCR) | payer MEDICARE, SELFPAY | END 2019-11-19 23:59 | disposition home or self-care (01) | LOC: INF 05:10 | PROVIDERS: PCP Specialist/Technologist Athletic Trainer; Visit Provider Internal Medicine Hospice and Palliative Medicine | DX: R69 Illness, unspecified (principal) ==

== ENCOUNTER 2019-11-19 07:59 | Outpatient (CLI) | payer MEDICARE, SELFPAY ==
[2019-11-19 08:56] LABS: Abs Immature Grans 0.04 k/cumm (0.0-0.09); Absolute Basophil Count 0.02 k/cumm (0.0-0.2); Absolute Eosinophil Count 0.13 k/cumm (0.0-0.7); Absolute Lymphocyte Count 4.93 k/cumm (1.2-3.4); Absolute Neutrophil Count 5.68 k/cumm (1.2-6.7); Basophils % 0.2; Eosinophils % 1.1; HCT 36.2 % (36.0-46.0); HGB 11.7 g/dL (12.0-15.5); Immature Grans % 0.3 %; Lymphocytes % 41.3; Mean Corp. HGB Concentration 32.3 g/dL (32.0-36.0); Mean Corpuscular Hemoglobin 35.6 pg (27.0-33.0); Monocytes % 9.5; Neutrophils % 47.6; Platelet Count 240 x1000/uL (130-400); RBC 3.29 m/cumm (4.00-5.20); RBC Distribution Width 12.7 % (11.7-14.6); White Blood Cell Count 11.94 k/cumm (4.4-10.8)
[2019-11-19 08:57] LABS: Absolute Monocyte Count 1.13 k/cumm (0.11-0.7)
[2019-11-19 09:06] LABS: ALT 118 U/L (14-59); AST 61 U/L (15-37); Albumin 3.6 g/dL (3.4-5.0); Alkaline Phosphatase 167 U/L (46-116); Anion Gap 8.3 mmol/L (3-11); BUN 17 mg/dL (7-18); Bilirubin, Total 0.3 mg/dL (0.2-1.0); CO2 28.7 mmol/L (21.0-32.0); CREATININE 0.65 mg/dL (0.55-1.02); Calcium 8.3 mg/dL (8.5-10.1); Chloride 105 mmol/L (98-107); Glucose 99 mg/dL (74-106); Potassium 3.6 mmol/L (3.5-5.1); Sodium 142 mmol/L (136-145); Total Protein 6.9 g/dL (6.4-8.2)
== END 2019-11-19 08:19 ==
PROVIDERS: PCP Specialist/Technologist Athletic Trainer; Visit Provider Internal Medicine Hospice and Palliative Medicine
DX: C34.92 Malignant neoplasm of unspecified part of left bronchus or lung (principal)
CPT/HCPCS: 36415; 80053; 85025

== ENCOUNTER 2019-11-23 01:59 | Outpatient (CLI) | payer MEDICARE, SELFPAY ==
[2019-11-23 08:18] LABS: Abs Immature Grans 0.04 k/cumm (0.0-0.09); Absolute Basophil Count 0.01 k/cumm (0.0-0.2); Absolute Eosinophil Count 0.04 k/cumm (0.0-0.7); Absolute Monocyte Count 0.86 k/cumm (0.11-0.7); Absolute Neutrophil Count 11.95 k/cumm (1.2-6.7); Basophils % 0.1; Eosinophils % 0.3; HCT 36.7 % (36.0-46.0); HGB 11.9 g/dL (12.0-15.5); Immature Grans % 0.3 %; Mean Corp. HGB Concentration 32.4 g/dL (32.0-36.0); Mean Corpuscular Volume 110.9 fL (80-95); Mean Platelet Volume 9.4 fL (8.0-11.0); Monocytes % 5.9; Neutrophils % 82.4; Platelet Count 231 x1000/uL (130-400); RBC 3.31 m/cumm (4.00-5.20); RBC Distribution Width 13.3 % (11.7-14.6)
[2019-11-23 08:29] LABS: ALT 103 U/L (14-59); AST 44 U/L (15-37); Albumin 3.4 g/dL (3.4-5.0); Alkaline Phosphatase 170 U/L (46-116); Anion Gap 6.1 mmol/L (3-11); BUN 19 mg/dL (7-18); Bilirubin, Total 0.3 mg/dL (0.2-1.0); CO2 29.9 mmol/L (21.0-32.0); CREATININE 0.77 mg/dL (0.55-1.02); Calcium 8.5 mg/dL (8.5-10.1); Chloride 106 mmol/L (98-107); Glucose 134 mg/dL (74-106); Potassium 4.2 mmol/L (3.5-5.1); Sodium 142 mmol/L (136-145); Total Protein 6.9 g/dL (6.4-8.2)
[2019-11-23 09:01] LABS: Diff Comment RBC Morph Reviewed
[2019-11-23 09:03] LABS: Anisocytosis 1+
[2019-11-23 09:04] LABS: Macrocytosis 2+
[2019-11-23 09:05] LABS: Poikilocytes 1+
--- NOTE | 2019-11-23 10:25 | DI.MRI_ITS ---
EXAM: MR LUMBAR SPINE WO/W CLINICAL HISTORY: LEPTOMENINGEAL METS, SMALL CELL LUNG CA LT, ? DROP/CSF METS. TECHNIQUE: Multiplanar multisequence MRI was performed. COMPARISON: CT CHEST ABDOMEN PELVIS W CONTRAST (GENERIC) from 11/10/2019 MR C SPINE T SPINE WO/W from 11/23/2019 MR LUMBAR SPINE WO/W from 11/23/2019 FINDINGS: MRI of the lumbar spine: The conus medullaris has a normal appearance and location. At L5-S1, there is disc desiccation. There are degenerative changes of the facets. No focal disc emmanuel iation, central spinal canal or neural foraminal stenosis is present. At L4-L5, there is disc desiccation. There is no focal disc herniation, central spinal canal or neura l foraminal stenosis. At L3-L4, there is disc desiccation. There is a diffuse disc bulge. There are degenerative changes of the facets with hypertrophy of the ligamentum flavum. There is mild to moderate central spinal canal stenosis. There is mild narrowing of the neural foramen bilaterally. At L2-L3 there is disc desiccation. Endplate degenerative signal changes are present. There are degen erative changes of the facets. No significant central spinal canal or neural foraminal stenosis is pr esent. At L1-L2, there is no focal disc herniation central spinal canal or neural foraminal stenosis. There are findings consistent with osseous metastatic disease. Following contrast administration there is enhancement seen on the surface of the terminal cord. This is consistent with leptomeningeal metastasis. The spinal cord or nerve roots. MRI of the cervical spine: There is normal signal in the spinal cord. There is no evidence of tonsillar ectopia. There is straig htening of the normal cervical lordosis. Several areas of decreased signal intensity are seen within the marrow consistent with osseous metastatic disease. At C7-T1, there is no focal disc herniation or central spinal canal stenosis. At C6-C7, there is prominence of the osteophyte disc complex. There is moderate central spinal canal stenosis and moderate to severe bilateral neural foraminal stenosis. At C5-C6, there is prominence of the osteophyte disc complex and uncovertebral joints. These result i n moderate central spinal canal stenosis. There is moderate severe bilateral neural foraminal stenosi s. At C4-C5, there is prominence of the osteophyte disc complex. There is moderate narrowing of the cent ral spinal canal. There is uncovertebral joint hypertrophy bilaterally resulting in moderately severe bilateral neural foraminal stenosis. At C3-C4, there is no central spinal canal stenosis. There is prominence of the osteophyte disc compl ex on the right causing moderately severe neural foraminal stenosis. At C2-C3, there is no focal disc herniation central spinal canal or neural foraminal stenosis. Following contrast enhancement there is a thickened enhancing surface of the cord consistent with lep tomeningeal metastasis. MRI of the thoracic spine: There is normal signal seen within the spinal cord. No focal disc herniation, central spinal canal or neural foraminal stenosis is seen. There are findings consistent with osseous metastatic disease. Following contrast enhancement, there is a thickened enhancing surface of the spinal cord consistent with leptomeningeal metastatic disease. IMPRESSION: 1. Findings consistent with leptomeningeal metastatic disease. 2. Findings consistent with osseous metastatic disease. 3. Degenerative disc disease throughout the lumbar spine. The findings are most marked at L3-L4. 4. Degenerative changes throughout the cervical spine. Please see the above discussion for complete d etails.
[2019-11-23] MEDS: Normal Saline Flush 10 ML SYR IVP (12:08)
[2019-11-23] MEDS: Gadoterate meglumine 20 ML VIAL 15 ML IVP (12:09)
== END 2019-11-23 02:19 ==
PROVIDERS: Internal Medicine Hospice and Palliative Medicine; PCP Specialist/Technologist Athletic Trainer; Visit Provider Radiology Radiation Oncology
DX: C34.92 Malignant neoplasm of unspecified part of left bronchus or lung (principal); C79.51 Secondary malignant neoplasm of bone; M51.36 Other intervertebral disc degeneration, lumbar region; M47.812 Spondylosis without myelopathy or radiculopathy, cervical region; M25.78 Osteophyte, vertebrae
CPT/HCPCS: 36415; 72158; 80053; 72156; 72157; 85025

== ENCOUNTER 2019-11-26 02:17 | Outpatient (RCR) | payer MEDICARE, SELFPAY | END 2019-12-18 23:59 | disposition home or self-care (01) | LOC: INF 02:17 | PROVIDERS: PCP Specialist/Technologist Athletic Trainer; Visit Provider Internal Medicine Hospice and Palliative Medicine | DX: R69 Illness, unspecified (principal) ==

== ENCOUNTER 2019-11-26 07:57 | Outpatient (CLI) | payer MEDICARE, SELFPAY ==
[2019-11-26 08:24] LABS: Abs Immature Grans 0.04 k/cumm (0.0-0.09); Absolute Basophil Count 0.01 k/cumm (0.0-0.2); Absolute Eosinophil Count 0.06 k/cumm (0.0-0.7); Absolute Monocyte Count 1.55 k/cumm (0.11-0.7); Absolute Neutrophil Count 8.33 k/cumm (1.2-6.7); Basophils % 0.1; Eosinophils % 0.4; HCT 35.1 % (36.0-46.0); HGB 11.4 g/dL (12.0-15.5); Immature Grans % 0.3 %; Lymphocytes % 30.2; Mean Corp. HGB Concentration 32.5 g/dL (32.0-36.0); Mean Corpuscular Hemoglobin 35.7 pg (27.0-33.0); Mean Platelet Volume 9.5 fL (8.0-11.0); Monocytes % 10.8; Neutrophils % 58.2; Platelet Count 229 x1000/uL (130-400); RBC 3.19 m/cumm (4.00-5.20); RBC Distribution Width 13.5 % (11.7-14.6); White Blood Cell Count 14.32 k/cumm (4.4-10.8)
[2019-11-26 08:26] LABS: Absolute Lymphocyte Count 4.32 k/cumm (1.2-3.4)
[2019-11-26 08:38] LABS: ALT 101 U/L (14-59); AST 53 U/L (15-37); Albumin 3.5 g/dL (3.4-5.0); Alkaline Phosphatase 150 U/L (46-116); Anion Gap 9.7 mmol/L (3-11); BUN 12 mg/dL (7-18); Bilirubin, Total 0.4 mg/dL (0.2-1.0); CO2 28.3 mmol/L (21.0-32.0); CREATININE 0.65 mg/dL (0.55-1.02); Calcium 7.9 mg/dL (8.5-10.1); Chloride 104 mmol/L (98-107); Glucose 93 mg/dL (74-106); Potassium 3.6 mmol/L (3.5-5.1); Sodium 142 mmol/L (136-145); Total Protein 6.8 g/dL (6.4-8.2)
[2019-11-26 09:14] LABS: Diff Comment Diff Reviewed
[2019-11-26 09:20] LABS: Anisocytosis 1+; Macrocytosis 3+
== END 2019-11-26 08:17 ==
PROVIDERS: PCP Specialist/Technologist Athletic Trainer; Visit Provider Internal Medicine Hospice and Palliative Medicine
DX: C34.92 Malignant neoplasm of unspecified part of left bronchus or lung (principal)
CPT/HCPCS: 36415; 80053; 85025

== ENCOUNTER 2019-11-26 10:38 | Outpatient (CLI) | payer MEDICARE, SELFPAY ==
--- NOTE | 2019-11-26 11:43 | DI.US_ITS ---
EXAM: US LOWER EXTREMITY VENOUS LT US LOWER EXTREMITY VENOUS LT CLINICAL HISTORY: LT LOWER EXTREMITY SWELLING, H/O SMALL CELL LUNG CA, ? DVT, R60.0, C34.92. LT LOWER EXTREMITY SWELLING, H/O SMALL CELL LUNG CA, ? DVT, R60.0, C34.92 TECHNIQUE: Ultrasound performed using standard protocol. COMPARISON: No exams were available for comparison FINDINGS: Duplex venous ultrasound was performed according to the usual protocol. The deep veins are freely com pressible throughout and there is normal flow augmentation with manual calf compression. 2D and Doppl er evaluation are unremarkable. IMPRESSION: No evidence of deep venous thrombosis of the lower extremity
== END 2019-11-26 10:58 ==
PROVIDERS: PCP Specialist/Technologist Athletic Trainer; Visit Provider Internal Medicine Hospice and Palliative Medicine
DX: R22.42 Localized swelling, mass and lump, left lower limb (principal); C34.92 Malignant neoplasm of unspecified part of left bronchus or lung; R60.0 Localized edema
CPT/HCPCS: 36415; 80053; 85025; 93971

== ENCOUNTER 2019-12-14 16:42 | Emergency (ER) | payer MEDICARE, SELFPAY ==
[2019-12-14] VITALS (29 sets, daily range): BP systolic 96–119; BP diastolic 58–78; PULSE 86–98; RESP 10–26; TEMP 36.5–36.7; O2SAT 90–96
--- NOTE | 2019-12-14 16:45 | DI.CT_ITS ---
EXAM: CT HEAD WO CLINICAL HISTORY: known cancer w/ mets. Currently altered TECHNIQUE: Noncontrast COMPARISON: CT HEAD W from 06/22/2019 FINDINGS: There is a question of a small amount of hemorrhage seen along the right insular cortex. No subdura l or epidural hematomas are seen. No parenchymal hemorrhage is visible. No masses are seen. No acu te infarct is visible at this time. The ventricles are not dilated. The sinuses and mastoid air lisbeth ls appear clear. There is no skull fracture IMPRESSION: Small amount of subarachnoid hemorrhage along the right insular cortex.
--- NOTE | 2019-12-14 16:57 | ED.GENADUL_ITS ---
Discharge Plan Disposition Patient Disposition: [facility] Condition: Serious Discharge Details Chief Complaint: AMS/LOC Clinical Impression: Subarachnoid hemorrhage, Acute confusion Primary Care Provider: Julian Wadsworth ED Provider: Nasir Jiménez Home Meds and New Rx's Prescriptions: No Action polyethylene glycol 3350 [Miralax] 17 gram powder in packet 17 gm PO DAILY Qty: 30 RF: 0 docusate sodium 100 mg Capsule 100 mg PO TID RF: 0 fentanyl 25 mcg/hr Patch 72 Hour 1 patch TRANSDERMAL Q72H RF: 0 oxycodone 5 mg Tablet 5 mg PO Q3H PRN PRNRF: 0 venlafaxine [Effexor XR] 150 mg Capsule,Extended Release 24hr 150 mg PO DAILY RF: 0 dexamethasone 4 mg Tablet 4 mg PO BID RF: 0 ondansetron 4 mg Tablet,Disintegrating 4 mg PO Q6H PRNRF: 0 Discharge Data Discharge Date/Time-TO BE ENTERED AT DEPARTURE: 12/14/19 19:30 Medical Decision Making Upon my evaluation, this patient had a high probability of imminent or life- threatening deterioration, which required my direct attention, intervention, and personal management. I have personally provided 45 minutes of critical care time exclusive of time spent on separately billable procedures. Time includes review of laboratory data, radiology results, discussion with consultants, and monitoring for potential decompensation. Interventions were performed as documented. This is a 64-year-old female with past medical history of stage IV adenocarcinoma of the lung, leptomeningeal metastatic disease, osseous metastatic disease, currently receiving immunotherapy infusions every at [facility], particularly [employer] and [employer], who is full code, who presents today for evaluation of altered mental status. She recently received her immunotherapy 5 days ago, daughter states that this was an atypical version and a last ditch effort for her current disease. Since then she has been sleeping every day, she has not been eating and drinking much, and then today daughter noticed that she was notably confused and altered having difficulty forming her thoughts, and interacting in a normal way. Family denies any fever or chills. Patient denies any chest pain abdominal pain headache, vision changes, numbness tingling or weakness. No urinary symptoms, no cough. No other complaints at this time. No other modifying factors. Physical exam demonstrates no significant focal abnormalities, she does have deviation of her tongue to the right, she also has notable difficulty finding words and maintaining her thoughts, but no other focal neurologic deficits. No clinical signs of meningitis. Signs and symptoms differential include dehydration infection or secondary side effect from her immunotherapy infusions. We will rehydrate monitor closely and reassess get a CT scan of the head. 6:36 PM Contacted by virtual radiology, evidence of a subarachnoid hemorrhage in the right insular cortex. Corresponds well to her symptoms. Especially with her right tongue deviation and mild confusion. No evidence of other abnormality. Will page [facility] neurosurgery for transfer. Patient remains hemodynamically stable and is guarding her airway well. Did an extended amount of time discussing the case with the patient and her daughter who is at bedside. All questions were answered. Discussed care with neurosurgery at [facility], specifically midlevel provider for neurosurgery team. She felt that this case did not require any neurosurgical management, and recommended that the patient be transferred to the ER for assessment by the MICU team and neurosurgery there rather than coming to the neurosurgery service. Case was then discussed with the ED provider Dr. Hammond, he agrees with the assessment and plan. Patient will be transferred to [facility] ED for further management. I have extensively reviewed the treatment plan with the patient. I have addressed all patient concerns at this time. I have also discussed the plan with the admitting physician and they agree with the current assessment and plan and have agreed to assume responsibility for the patient. All parties demonstrate verbal understanding and agreement with our assessment and plan at this time. At time of transfer the patient was reassessed and continued to demonstrate current medical stability. No signs of acute respiratory distress requiring intubation, hemodynamic instability requiring pressor support, or rapidly declining mental status. The patient is stable for transport. FINDINGS: Brain: Subarachnoid hemorrhage along the right insular cortex. No acute cortical stroke. Ventricles: Normal. No ventriculomegaly. Bones/joints: Unremarkable. No acute fracture. Sinuses: Visualized sinuses are unremarkable. No fluid levels. Mastoid air cells: Visualized mastoid air cells are well aerated. Soft tissues: Unremarkable. IMPRESSION: Subarachnoid hemorrhage along the right insular cortex. Thank you for allowing us to participate in the care of your patient. Dictated and Authenticated by: Yuridia Angelo MD 12/14/2019 6:06 PM Eastern Time ([place] & [place]) HPI General Date/Time Provider Initiated Documentation: 02/25/20 16:45 . HPI Narrative: This is a 64-year-old female with past medical history of stage IV adenocarcinoma of the lung, leptomeningeal metastatic disease, osseous metastatic disease, currently receiving immunotherapy infusions every at [facility], [facility] and [facility], who is full code, who presents today for evaluation of altered mental status. She recently received her immunotherapy 5 days ago, daughter states that this was an atypical version and a last ditch effort for her current disease. Since then she has been sleeping every day, she has not been eating and drinking much, and then today daughter noticed that she was notably confused and altered having difficulty forming her thoughts, and interacting in a normal way. Family denies any fever or chills. Patient denies any chest pain abdominal pain headache, vision changes, numbness tingling or weakness. No urinary symptoms, no cough. No other complaints at this time. No other modifying factors. Related Data Home Medications Medication Instructions Recorded Confirmed venlafaxine [Effexor XR] 150 mg PO DAILY 06/12/19 12/14/19 polyethylene glycol 3350 [Miralax] 17 gm PO DAILY #30 each 06/22/19 12/14/19 dexamethasone 4 mg PO BID 11/10/19 12/14/19 ondansetron 4 mg PO Q6H PRN 11/10/19 12/14/19 docusate sodium 100 mg PO TID 12/14/19 12/14/19 fentanyl 1 patch TRANSDERMAL Q72H 12/14/19 12/14/19 oxycodone 5 mg PO Q3H PRN PRN 12/14/19 12/14/19 Previous Rx's Medication Instructions Recorded polyethylene glycol 3350 [Miralax] 17 gm PO DAILY #30 each 06/22/19 Allergies Allergy/AdvReac Type Severity Reaction Status Date / Time bupropion [From Wellbutrin] Allergy Severe Other (See Unverified 12/14/19 16:53 Comment) clarithromycin [From Biaxin] Allergy Severe Anaphylaxsi Unverified 12/14/19 16:53 s shellfish derived Allergy Severe Other (See Unverified 12/14/19 16:53 Comment) cefaclor Allergy Intermediate Skin Rash Unverified 12/14/19 16:53 erythromycin base Allergy Intermediate Other (See Unverified 12/14/19 16:53 Comment) Penicillins Allergy Intermediate Skin Rash Unverified 12/14/19 16:53 sulfamethoxazole Allergy Intermediate Skin Rash Unverified 12/14/19 16:53 [From Bactrim] trimethoprim [From Bactrim] Allergy Intermediate Skin Rash Unverified 12/14/19 16:53 ether Allergy Other (See Unverified 12/14/19 16:53 Comment) acetaminophen [From Vicodin] AdvReac Other (See Unverified 12/14/19 16:53 Comment) hydrocodone [From Vicodin] AdvReac Other (See Unverified 12/14/19 16:53 Comment) General Stated Complaint: AMS/LOC ARABELLA: 3 Review of Systems All systems reviewed & are unremarkable except as noted in HPI and below PFSH Social History Smoking/Tobacco Use Status: Current every day Tobacco Type: cigarettes Years smoked: 20 Tobacco: How many years used: 15 Alcohol Intake: current Alcohol Intake frequency: holidays/special occasions only Drug use: Occasionally Substance use type: marijuana Household members: family Housing: apartment Number of Children: 2 number of grandchildren: 4 Do you feel safe at home: Yes Do you feel safe in your relationship?: Yes Exam Narrative Exam Narrative: 1.Const: Well-nourished, Well-developed, appearing stated age 2.Eyes: PERRL, no conjunctival injection, and symmetrical lids. 3.ENT: Atraumatic external nose and ears. Moist MM. Neck: Symmetric, trachea midline, No thyromegaly. Patient demonstrates good movement of cervical neck. There is no nuchal rigidity, no nuchal tenderness. Patient is able to flex the neck without any difficulty or significant pain. Negative Kernig's and Brudzinski sign. 4.CVS: +S1/S2, No murmurs or gallops. Peripheral pulses 2+ and equal in all extremities. Brisk capillary refill in all extremities. 5.RESP: Unlabored respiratory effort. Clear to auscultation bilaterally. No wheezes rales or rhonchi 6.GI: Soft, Nontender/Nondistended, No hepatosplenomegaly. No guarding or rebound. 7.MSK: Normocephalic/Atraumatic, Extremities w/o deformity or ttp No cyanosis or clubbing, Normal movement of all extremities 8.Skin: Warm, Dry. No rashes or lesions. 9.Neuro: lockstitch lining maker II-XII grossly intact. Sensation grossly intact, no focal neurologic deficits. All 6 cardinal planes of vision are fully intact. No evidence of rotatory or vertical nystagmus. The patient demonstrated a normal axvgjh-lemd-sleysw, good dexterity. There was no evidence of dysdiadochokinesia. Rxup-[id number] testing was normal however the patient did have notable difficulty understanding the desired task. Sensation was intact bilaterally as well as muscle strength bilaterally for all extremities. Patient was able to verbalize butter cup with no slurring, or miss pronunciation. Patient does demonstrate right-sided deviation of her tongue, but otherwise demonstrates normal movements. 10.Psych: (AAO) x3. Appropriate mood and affect, however the patient does have difficulty speaking and completing her thoughts, or organizing her mentation. No evidence of word salad. Course Vital Signs Vital signs: Vital Signs Temperature 36.5 C 12/14/19 16:47 Pulse 98 H 12/14/19 16:47 Respiratory Rate 16 12/14/19 16:47 Blood Pressure 104/68 12/14/19 16:47 Pulse Oximetry 96 12/14/19 16:47 Temperature 36.5 C 12/14/19 16:47 Temperature Source Skin 12/14/19 16:47 Pulse 98 H 12/14/19 16:47 Respiratory Rate 16 12/14/19 16:47 Blood Pressure 104/68 12/14/19 16:47 Blood Pressure Position Sitting 12/14/19 16:47 Pulse Oximetry 96 12/14/19 16:47 Oxygen Delivery Method Room Air 12/14/19 16:47 Oxygen Flow Rate 0 12/14/19 16:47 Pain Level 0 12/14/19 16:47
[2019-12-14 17:09] LABS: BE (Venous) 3.4 mmol/L (-3-3); HCO3 (Venous) 28 mmol/L (22-28); O2 Sat (Venous) 83 % (70-80); TCO2 (Venous) 26 mmol/L (22-29); pCO2 (Venous) 42 mm/Hg (34-47); pH (Venous) 7.43 (7.35-7.45); pO2 (Venous) 46 mm/Hg (28-44)
[2019-12-14 17:15] LABS: Abs Immature Grans 0.04 k/cumm (0.0-0.09); Absolute Basophil Count 0.01 k/cumm (0.0-0.2); Absolute Eosinophil Count 0.05 k/cumm (0.0-0.7); Absolute Lymphocyte Count 2.02 k/cumm (1.2-3.4); Absolute Monocyte Count 1.27 k/cumm (0.11-0.7); Absolute Neutrophil Count 7.23 k/cumm (1.2-6.7); Basophils % 0.1; Eosinophils % 0.5; HCT 33.7 % (36.0-46.0); HGB 11.2 g/dL (12.0-15.5); Immature Grans % 0.4 %; Mean Corp. HGB Concentration 33.2 g/dL (32.0-36.0); Mean Corpuscular Hemoglobin 35.9 pg (27.0-33.0); Mean Platelet Volume 10.7 fL (8.0-11.0); Platelet Count 120 x1000/uL (130-400); RBC 3.12 m/cumm (4.00-5.20); RBC Distribution Width 13.5 % (11.7-14.6); White Blood Cell Count 10.62 k/cumm (4.4-10.8)
[2019-12-14] MEDS: Normal Saline 1,000 ML 1000 ML IV (17:17)
[2019-12-14 17:24] LABS: Ammonia 17 umol/L (11-32)
[2019-12-14 17:26] LABS: PTT Activated 24.3 sec (21.0-31.4); Prothrombin Time 10.2 sec (9.3-11.0)
[2019-12-14 17:31] LABS: ALT 151 U/L (14-59); AST 67 U/L (15-37); Albumin 3.2 g/dL (3.4-5.0); Alkaline Phosphatase 250 U/L (46-116); Anion Gap 8.8 mmol/L (3-11); BUN 14 mg/dL (7-18); Bilirubin, Total 0.6 mg/dL (0.2-1.0); CO2 27.2 mmol/L (21.0-32.0); CREATININE 0.53 mg/dL (0.55-1.02); Calcium 7.7 mg/dL (8.5-10.1); Chloride 104 mmol/L (98-107); Glucose 109 mg/dL (74-106); Potassium 3.4 mmol/L (3.5-5.1); Sodium 140 mmol/L (136-145); Total Protein 6.4 g/dL (6.4-8.2)
[2019-12-14 17:49] LABS: Salicylate 3.3 mg/dL (2.8-20.0)
[2019-12-14 17:50] LABS: Bilirubin Negative (Negative); Blood Negative (Negative); Clarity Clear (Clear); Glucose Negative (Negative); Ketones Trace mg/dL (Negative); Leukocyte Esterase Negative (Negative); Nitrite Negative (Negative)
[2019-12-14 17:52] LABS: Acetaminophen < 2 ug/mL (10-30)
--- NOTE | 2019-12-14 18:06 | DI.VRAD_ITS ---
Addendum created by Yuridia Angelo MD on 12/14/2019 6:08:55 PM EST THIS REPORT CONTAINS FINDINGS THAT MAY BE CRITICAL TO PATIENT CARE. The findings were verbally communicated via telephone conference with LOU WOLFE at 6:08 PM EST on 12/14/2019. The findings were acknowledged and understood. Initial report created on 12/14/2019 6:06:14 PM EST PROCEDURE INFORMATION: Exam: CT Head Without Contrast Exam date and time: 12/14/2019 5:13 PM Age: 64 years old Clinical indication: Other: Known cancer w/ mets. Currently altered TECHNIQUE: Imaging protocol: Computed tomography of the head without contrast. Other contrast: known cancer w/ mets. currently altered; COMPARISON: CT HEAD W 06/22/2019 8:32 AM FINDINGS: Brain: Subarachnoid hemorrhage along the right insular cortex. No acute cortical stroke. Ventricles: Normal. No ventriculomegaly. Bones/joints: Unremarkable. No acute fracture. Sinuses: Visualized sinuses are unremarkable. No fluid levels. Mastoid air cells: Visualized mastoid air cells are well aerated. Soft tissues: Unremarkable. IMPRESSION: Subarachnoid hemorrhage along the right insular cortex. Dictated and Authenticated by: Yuridia Angelo MD. Ordering:ROGELIO Best MD
== END 2019-12-14 19:30 | disposition short-term general hospital (02) ==
PROVIDERS: Emergency Provider Student in an Organized Health Care Education/Training Program; PCP Specialist/Technologist Athletic Trainer
DX: R41.0 Disorientation, unspecified (principal); I60.9 Nontraumatic subarachnoid hemorrhage, unspecified; C34.90 Malignant neoplasm of unspecified part of unspecified bronchus or lung; C79.32 Secondary malignant neoplasm of cerebral meninges; C79.51 Secondary malignant neoplasm of bone; C78.7 Secondary malignant neoplasm of liver and intrahepatic bile duct; Z79.899 Other long term (current) drug therapy; F17.210 Nicotine dependence, cigarettes, uncomplicated
CPT/HCPCS: 36415; 80053; 82805; 96361; 96365; 99291; 70450; 80329; 81003; 82140; 84443; 85025; 85610; 85730; J0610

== ENCOUNTER 2019-12-28 12:51 | Observation (INO) | payer MEDICARE, SELFPAY ==
[2019-12-28] VITALS (33 sets, daily range): BP systolic 90–128; BP diastolic 55–89; PULSE 73–115; RESP 10–24; TEMP 36.6–37.5; O2SAT 91–97
--- NOTE | 2019-12-28 12:45 | DI.CT_ITS ---
EXAM: CT HEAD WO CLINICAL HISTORY: KNOWN BRAIN BLEED, CONFUSION. TECHNIQUE: Imaging Protocol: Axial computed tomography images with coronal and sagittal reformatted images were created and reviewed COMPARISON: CT HEAD W from 06/22/2019 CT HEAD WO from 12/14/2019 FINDINGS: Ventricles and Extra axial spaces: Normal in size and morphology for the patient's age. Hemorrhage: The small area of hyperdensity adjacent to the right insular cortex is unchanged. No shon dence of new intracranial hemorrhage is noted. Cerebral parenchyma: Normal. Midline shift: None. Brainstem/Cerebellum: Normal. Calvarium: Normal. Visualized Paranasal sinuses/Mastoids: Clear. Soft Tissues: Unremarkable. IMPRESSION: 1. Stable subtle area of hyperdensity adjacent to the right insular cortex. 2. No acute intracranial process. 3. The findings were discussed with the Emergency Department on the date of the examination. RADIATION DOSE DELIVERED: DATA REPOSITORY: All CT scans at this facility are submitted to the National Radiology Data Registry (NRDR) Dose Index Registry (DIR) with the [employer] ([employer]). RADIATION OPTIMIZATION: All CT scans at this facility use at least one of these dose optimization te chniques: automated exposure control; mA and/or kV adjustment per patient size (includes targeted exa ms where dose is matched to clinical indication); or iterative reconstruction.
--- NOTE | 2019-12-28 12:45 | DI.CT_ITS ---
EXAM: CT CHEST/ABD/PEL W CLINICAL HISTORY: VOMITING, KNOWN CANCER. TECHNIQUE: Imaging Protocol: Axial computed tomography images with coronal and sagittal reformatted images were created and reviewed CONTRAST MATERIAL: Intravenous: Omnipaque 350 Contrast volume:100 mL Oral: yes / no COMPARISON: CT CHEST PE ABD PELVIS W from 06/20/2019 CT CHEST AND ABDOMEN W from 09/13/2019 CT CHEST ABDOMEN PELVIS W CONTRAST (GENERIC) from 11/10/2019 FINDINGS: CHEST: Thyroid: Hypodensities within the thyroid. Nonemergent thyroid ultrasound may be obtained. Tracheobronchial tree: Patent where visualized. Mediastinum and Alisa: No dominant adenopathy or fluid collection. Pulmonary parenchyma: New opacities scattered in the left upper lobe. Mild pulmonary emphysematous c hanges in the lungs. Dependent atelectatic changes in the lung bases. Pleura: No effusion or pneumothorax. Lymph nodes: Within normal limits. Aorta: Thoracic portion non-dilated. Atherosclerosis. Heart: No cardiomegaly. No pericardial effusion. No coronary artery calcification. Bones: Osseous sclerotic metastases. ABDOMEN: Liver: There are innumerable hepatic metastases. The portal and hepatic veins are patent. No measur able mass. Gallbladder and biliary tract: No radiodense calculus or dilation. Pancreas: Normal density, no abnormal calcifications or inflammatory process. Spleen: Normal. Kidneys: Normal size, contour and axis. No radiodense stones or obstructive uropathy. No masses seen. Left renal cyst. Adrenal glands: No masses seen. Aorta: Abdominal portion non-dilated. Atherosclerosis. Lymph nodes: Within normal limits. PELVIS: Bladder: Symmetric distention, no gross wall thickening. Bowel: There is thickening of the wall of the bladder of the ascending colon and cecum and it appears to extend in to involve the transverse colon. There is mild pericolonic inflammatory change noted. The appendix measures 6 mm in diameter. No appendicoliths. Peritoneal cavity: No ascites, collection or mesenteric inflammatory response. Bones: Numerous sclerotic metastases. Degenerative changes. Reproductive organs: Status post hysterectomy. IMPRESSION: 1. Hepatic and osseous metastatic disease. 2. Bowel wall thickening from the cecum to the transverse colon suspicious for inflammatory or infect ious colitis. 3. Upper limits of normal in size appendix. No appendicoliths or periappendiceal inflammatory change . 4. Worsening left upper lobe opacities concerning for increasing tumor. Findings were discussed with the Emergency Department on the date of the examination. DATA REPOSITORY: All CT scans at this facility are submitted to the National Radiology Data Registry (NRDR) Dose Index Registry (DIR) with the [employer] (ACR). RADIATION OPTIMIZATION: All CT scans at this facility use at least one of these dose optimization te chniques: automated exposure control; mA and/or kV adjustment per patient size (includes targeted exa ms where dose is matched to clinical indication); or iterative reconstruction.
[2019-12-28] MEDS: Normal Saline Flush 10 ML SYR IVP ×2 (13:14→17:15)
[2019-12-28] MEDS: Normal Saline 1,000 ML 1000 ML IV (13:15)
[2019-12-28 13:20] LABS: Lactate 1.5 mmol/L (0.6-1.4)
[2019-12-28 13:21] LABS: HCT 40.2 % (36.0-46.0); HGB 13.1 g/dL (12.0-15.5); Mean Corp. HGB Concentration 32.6 g/dL (32.0-36.0); Mean Corpuscular Hemoglobin 34.2 pg (27.0-33.0); Mean Platelet Volume 10.5 fL (8.0-11.0); Platelet Count 238 x1000/uL (130-400); RBC 3.83 m/cumm (4.00-5.20); RBC Distribution Width 13.9 % (11.7-14.6); White Blood Cell Count 17.39 k/cumm (4.4-10.8)
[2019-12-28 13:40] LABS: PTT Activated 23.7 sec (21.0-31.4); Prothrombin Time 10.3 sec (9.3-11.0)
[2019-12-28 13:41] LABS: ALT 51 U/L (14-59); AST 27 U/L (15-37); Albumin 3.1 g/dL (3.4-5.0); Alkaline Phosphatase 279 U/L (46-116); BUN 28 mg/dL (7-18); Bilirubin, Total 0.3 mg/dL (0.2-1.0); CREATININE 0.79 mg/dL (0.55-1.02); Calcium 8.5 mg/dL (8.5-10.1); Chloride 102 mmol/L (98-107); Glucose 132 mg/dL (74-106); Lipase 169 U/L (73-393); Potassium 3.2 mmol/L (3.5-5.1); Sodium 141 mmol/L (136-145); Total Protein 7.1 g/dL (6.4-8.2)
[2019-12-28 13:43] LABS: Absolute Lymphocyte Count 4.17 k/cumm (1.2-3.4); Absolute Monocyte Count 2.09 k/cumm (0.11-0.7); Absolute Neutrophil Count 11.13 k/cumm (1.2-6.7)
[2019-12-28 13:44] LABS: Diff Comment Manual Differential; Macrocytosis 2+; Polychromasia Present
--- NOTE | 2019-12-28 13:47 | ED.GENADUL_ITS ---
Discharge Plan Disposition Patient Disposition: [facility] INPATIENT Condition: Stable Discharge Details Chief Complaint: Abd Prob Clinical Impression: Diarrhea, Colitis, Abdominal pain Primary Care Provider: Julian Wadsworth ED Provider: Nasir Jiménez Home Meds and New Rx's Prescriptions: No Action polyethylene glycol 3350 [Miralax] 17 gram powder in packet 17 gm PO DAILY Qty: 30 RF: 0 docusate sodium 100 mg Capsule 100 mg PO TID RF: 0 fentanyl 25 mcg/hr Patch 72 Hour 1 patch TRANSDERMAL Q72H RF: 0 oxycodone 5 mg Tablet 5 mg PO Q3H PRN PRNRF: 0 venlafaxine [Effexor XR] 150 mg Capsule,Extended Release 24hr 150 mg PO DAILY RF: 0 dexamethasone 4 mg Tablet 4 mg PO BID RF: 0 ondansetron 4 mg Tablet,Disintegrating 4 mg PO Q6H PRNRF: 0 Medical Decision Making This is a 64-year-old female with past medical history of stage IV adenocarcinoma of the lung, leptomeningeal metastatic disease, osseous metastatic disease, currently receiving immunotherapy infusions every at [facility], [employer] and xgeva, who is full code, who was recently diagnosed with an intraparenchymal hemorrhage 2 weeks ago, transferred to [facility] and then eventually discharged without complication who presents today for right lower quadrant abdominal pain and slight confusion. Patient is being sent by her [facility] oncologist. Over the last 12 to 24 hours she is developed notable abdominal pain, particularly in the right lower quadrant of the abdomen. She has had associated diarrhea for last few days, nonbloody, with no melena, which per oncology can be a side effect of her current chemotherapy medication. She has been taking Imodium with no improvement. However the pain is notably worsened. The severity of it comes and goes, no apparent aggravating or relieving factors. She did have some Jell-O last night, however this morning it notably got worse, and continued. The patient denies any vomiting. Appetite decreased. She denies any recent antibiotics. She denies any other acute symptoms. Her daughter did state that she was acting a little bit differently than normal yesterday, but otherwise has been functioning well. Exam demonstrates notable tenderness in the right lower quadrant of the abdomen, negative Mejia sign, mildly distended abdomen. Differential is highest for acute appendicitis, she does appear notably dehydrated we will give 1 L of normal saline, she does not want any pain meds at this time. Neurologic exam appears unremarkable, no signs of focal deficit at this time, oncology has requested that we get a CT scan of the chest abdomen and pelvis, we will add a CT scan of the head to make sure that there is no acute worsening of her recent brain bleed. Patient is otherwise stable at this time. 4:[address] scan of the head shows no evidence of acute change or process. There is a subtle stable hypodensity that is unchanged, showing no evidence of recent bleed per radiology. CT scan of the chest abdomen pelvis does show evidence of slight worsening left upper lobe opacities concerning for increasing tumor, compared to prior scan in October. The appendix is normal in size but at the upper limits, no evidence of acute appendicitis at this time. Notable diffuse bowel wall thickening of the cecum transverse colon concerning for inflammatory infectious colitis. Certainly in the location of the patient's pain. Patient does have an elevated white count, no fever. Does have a mild left shift. She has not had a bowel movement yet here. I have contacted the surgeon Dr. Abraham, she has agreed to accept the patient to watch and manage for the time being. She does not feel that there is an acute surgical pathology at this time. We will start Cipro and Flagyl IV for colitis. I have extensively reviewed the treatment plan with the patient. I have addressed all patient concerns at this time. I have also discussed the plan with the admitting physician and they agree with the current assessment and plan and have agreed to assume responsibility for the patient. All parties demonstrate verbal understanding and agreement with our assessment and plan at this time. FINDINGS: CHEST: Thyroid: Hypodensities within the thyroid. Nonemergent thyroid ultrasound may be obtained. Tracheobronchial tree: Patent where visualized. Mediastinum and Alisa: No dominant adenopathy or fluid collection. Pulmonary parenchyma: New opacities scattered in the left upper lobe. Mild pulmonary emphysematous changes in the lungs. Dependent atelectatic changes in the lung bases. Pleura: No effusion or pneumothorax. Lymph nodes: Within normal limits. Aorta: Thoracic portion non-dilated. Atherosclerosis. Heart: No cardiomegaly. No pericardial effusion. No coronary artery calcification. Bones: Osseous sclerotic metastases. ABDOMEN: Liver: There are innumerable hepatic metastases. The portal and hepatic veins are patent. No measurable mass. Gallbladder and biliary tract: No radiodense calculus or dilation. Pancreas: Normal density, no abnormal calcifications or inflammatory process. Spleen: Normal. Kidneys: Normal size, contour and axis. No radiodense stones or obstructive uropathy. No masses seen. Left renal cyst. Adrenal glands: No masses seen. Aorta: Abdominal portion non-dilated. Atherosclerosis. Lymph nodes: Within normal limits. PELVIS: Bladder: Symmetric distention, no gross wall thickening. Bowel: There is thickening of the wall of the bladder of the ascending colon and cecum and it appears to extend in to involve the transverse colon. There is mild pericolonic inflammatory change noted. The appendix measures 6 mm in diameter. No appendicoliths. Peritoneal cavity: No ascites, collection or mesenteric inflammatory response. Bones: Numerous sclerotic metastases. Degenerative changes. Reproductive organs: Status post hysterectomy. IMPRESSION: 1. Hepatic and osseous metastatic disease. 2. Bowel wall thickening from the cecum to the transverse colon suspicious for inflammatory or infectious colitis. 3. Upper limits of normal in size appendix. No appendicoliths or periappendiceal inflammatory change. 4. Worsening left upper lobe opacities concerning for increasing tumor. Findings were discussed with the Emergency Department on the date of the examination. FINDINGS: Ventricles and Extra axial spaces: Normal in size and morphology for the patient's age. Hemorrhage: The small area of hyperdensity adjacent to the right insular cortex is unchanged. No evidence of new intracranial hemorrhage is noted. Cerebral parenchyma: Normal. Midline shift: None. Brainstem/Cerebellum: Normal. Calvarium: Normal. Visualized Paranasal sinuses/Mastoids: Clear. Soft Tissues: Unremarkable. IMPRESSION: 1. Stable subtle area of hyperdensity adjacent to the right insular cortex. 2. No acute intracranial process. 3. The findings were discussed with the Emergency Department on the date of the examination. HPI General Date/Time Provider Initiated Documentation: 12/28/19 12:57 . HPI Narrative: This is a 64-year-old female with past medical history of stage IV adenocarcinoma of the lung, leptomeningeal metastatic disease, osseous metastatic disease, currently receiving immunotherapy infusions every at [facility], [employer]inotec[employer] and xgeva, who is full code, who was recently diagnosed with an intraparenchymal hemorrhage 2 weeks ago, transferred to [facility] and then eventually discharged without complication who presents today for right lower quadrant abdominal pain and slight confusion. Patient is being sent by her [facility] oncologist. Over the last 12 to 24 hours she is developed notable abdominal pain, particularly in the right lower quadrant of the abdomen. She has had associated diarrhea for last few days, nonbloody, with no melena, which per oncology can be a side effect of her current chemotherapy medication. She has been taking Imodium with no improvement. However the pain is notably worsened. The severity of it comes and goes, no apparent aggravating or relieving factors. She did have some Jell-O last night, however this morning it notably got worse, and continued. The patient denies any vomiting. Appetite decreased. She denies any recent antibiotics. She denies any other acute symptoms. Her daughter did state that she was acting a little bit differently than normal yesterday, but otherwise has been functioning well. No other complaints at this time. No other modifying factors. Related Data Home Medications Medication Instructions Recorded Confirmed venlafaxine [Effexor XR] 150 mg PO DAILY 06/12/19 12/28/19 polyethylene glycol 3350 [Miralax] 17 gm PO DAILY #30 each 06/22/19 12/28/19 dexamethasone 4 mg PO BID 11/10/19 12/28/19 ondansetron 4 mg PO Q6H PRN 11/10/19 12/28/19 docusate sodium 100 mg PO TID 12/14/19 12/28/19 fentanyl 1 patch TRANSDERMAL Q72H 12/14/19 12/28/19 oxycodone 5 mg PO Q3H PRN PRN 12/14/19 12/28/19 Previous Rx's Medication Instructions Recorded polyethylene glycol 3350 [Miralax] 17 gm PO DAILY #30 each 06/22/19 Allergies Allergy/AdvReac Type Severity Reaction Status Date / Time bupropion [From Wellbutrin] Allergy Severe Other (See Unverified 12/28/19 12:55 Comment) clarithromycin [From Biaxin] Allergy Severe Anaphylaxsi Unverified 12/28/19 12:55 s shellfish derived Allergy Severe Other (See Unverified 12/28/19 12:55 Comment) cefaclor Allergy Intermediate Skin Rash Unverified 12/28/19 12:55 erythromycin base Allergy Intermediate Other (See Unverified 12/28/19 12:55 Comment) Penicillins Allergy Intermediate Skin Rash Unverified 12/28/19 12:55 sulfamethoxazole Allergy Intermediate Skin Rash Unverified 12/28/19 12:55 [From Bactrim] trimethoprim [From Bactrim] Allergy Intermediate Skin Rash Unverified 12/28/19 12:55 ether Allergy Other (See Unverified 12/28/19 12:55 Comment) acetaminophen [From Vicodin] AdvReac Other (See Unverified 12/28/19 12:55 Comment) hydrocodone [From Vicodin] AdvReac Other (See Unverified 12/28/19 12:55 Comment) General Stated Complaint: Abd Prob ARABELLA: 3 Review of Systems All systems reviewed & are unremarkable except as noted in HPI and below PFSH Medical History Bipolar disorder (Acute) Brain metastasis (Chronic) Liver metastases (Chronic) Stage IV adenocarcinoma of lung (Chronic) Surgical History History of bunionectomy of left great toe (Inactive ~07/2018) History of liver biopsy (Acute ~06/10/19) small cell neuroendocrine carcinoma S/P hysterectomy (Acute) also BSO Family History Father Prostate cancer metastatic to lung Mother Multiple myeloma Social History Smoking/Tobacco Use Status: Current every day Tobacco Type: cigarettes Years smoked: 20 Tobacco: How many years used: 15 Alcohol Intake: current Alcohol Intake frequency: holidays/special occasions only Drug use: Occasionally Substance use type: marijuana Household members: family Housing: apartment Number of Children: 2 number of grandchildren: 4 Do you feel safe at home: Yes Do you feel safe in your relationship?: Yes Exam Narrative Exam Narrative: 1.Const: Well-nourished, Well-developed, appearing stated age 2.Eyes: PERRL, no conjunctival injection, and symmetrical lids. 3.ENT: Atraumatic external nose and ears. Notably dry MM. Neck: Symmetric, trachea midline, No thyromegaly. 4.CVS: +S1/S2, No murmurs or gallops. Peripheral pulses 2+ and equal in all extremities. Brisk capillary refill in all extremities. 5.RESP: Unlabored respiratory effort. Clear to auscultation bilaterally. No wheezes rales or rhonchi 6.GI: Soft, mildly distended, notable acute guarding and significant pain at the right lower quadrant, reproducible pain in this location with heel strike on the right. Negative Mejia sign, no pain in the left lower quadrant or left upper. 7.MSK: Normocephalic/Atraumatic, Extremities w/o deformity or ttp No cyanosis or clubbing, Normal movement of all extremities 8.Skin: Warm, Dry. No rashes or lesions. 9.Neuro: director money II-XII grossly intact. Sensation grossly intact, no focal neurologic deficits. All 6 cardinal planes of vision are fully intact. No evidence of rotatory or vertical nystagmus. The patient demonstrated a normal [id number], good dexterity. There was no evidence of dysdiadochokinesia. Patient was able to ambulate without difficulty. There was no wide-based gait. Romberg testing was normal. Lakq-vr-[id number] testing was normal. Sensation was intact bilaterally as well as muscle strength bilaterally for all extremities. Patient was able to verbalize butter cup with no slurring, or miss pronunciation. 10.Psych: (AAO) x3. Appropriate mood and affect Course Vital Signs Vital signs: Vital Signs Temperature 36.6 C 12/28/19 12:46 Pulse 112 H 12/28/19 12:46 Respiratory Rate 18 12/28/19 12:46 Blood Pressure 96/74 L 12/28/19 12:46 Pulse Oximetry 95 12/28/19 12:46 Temperature 36.6 C 12/28/19 12:46 Temperature Source Skin 12/28/19 12:46 Pulse 112 H 12/28/19 12:46 Respiratory Rate 18 12/28/19 12:46 Respiratory Effort Non-Labored 12/28/19 12:53 Blood Pressure 96/74 L 12/28/19 12:46 Blood Pressure Position Sitting 12/28/19 12:46 Pulse Oximetry 95 12/28/19 12:46 Oxygen Delivery Method Room Air 12/28/19 12:46 Oxygen Flow Rate 0 12/28/19 12:46 Pain Level 0 12/28/19 12:46 Comment 12/28/19 12:46 Lab/Test Results Lab/Test Results: 12/28/19 13:09 Stool Stool Occult Blood (FLORESITA) - Pending 12/28/19 13:09 Stool Clostridioides difficile Screen - Pending Laboratory Tests Range/Units 12/28/19 12/28/19 12/28/19 13:05 13:05 13:05 WBC (4.4-10.8) k/cumm 17.39 H RBC (4.00-5.20) m/cumm 3.83 L Hgb (12.0-15.5) g/dL 13.1 Hct (36.0-46.0) % 40.2 MCV (80-95) fL 105.0 H MCH (27.0-33.0) pg 34.2 H MCHC (32.0-36.0) g/dL 32.6 RDW (11.7-14.6) % 13.9 Plt Count (130-400) x1000/uL 238 D MPV (8.0-11.0) fL 10.5 Immature Gran % See Differential Neutrophils % 62.0 Band Neutrophils % % 2.0 Lymphocytes % 24.0 Monocytes % 12.0 Eosinophils % 0.0 Basophils % 0.0 Absolute Neutrophils (1.2-6.7) k/cumm 11.13 H Absolute Lymphocytes (1.2-3.4) k/cumm 4.17 H Absolute Monocytes (0.11-0.7) k/cumm 2.09 H Absolute Eosinophils (0.0-0.7) k/cumm 0.00 Absolute Basophils (0.0-0.2) k/cumm 0.00 Differential Comment Manual differential RBC Morphology See below Polychromasia Present Macrocytosis 2+ PT (9.3-11.0) sec INR (0.9-1.1) APTT (21.0-31.4) sec Sodium (136-145) mmol/L 141 Potassium (3.5-5.1) mmol/L 3.2 L Chloride (98-107) mmol/L 102 Carbon Dioxide (21.0-32.0) mmol/L 26.0 Anion Gap (3-11) mmol/L 13.0 H BUN (7-18) mg/dL 28 H Creatinine (0.55-1.02) mg/dL 0.79 Estimated GFR/1.73 m2 (mL/min/1.73m2) >= 60.00 Glucose (74-106) mg/dL 132 H Lactate (0.6-1.4) mmol/L 1.5 H Calcium (8.5-10.1) mg/dL 8.5 Total Bilirubin (0.2-1.0) mg/dL 0.3 AST (15-37) U/L 27 ALT (14-59) U/L 51 Alkaline Phosphatase (46-116) U/L 279 H Total Protein (6.4-8.2) g/dL 7.1 Albumin (3.4-5.0) g/dL 3.1 L Lipase (73-393) U/L 169 Range/Units 12/28/19 13:05 WBC (4.4-10.8) k/cumm RBC (4.00-5.20) m/cumm Hgb (12.0-15.5) g/dL Hct (36.0-46.0) % MCV (80-95) fL MCH (27.0-33.0) pg MCHC (32.0-36.0) g/dL RDW (11.7-14.6) % Plt Count (130-400) x1000/uL MPV (8.0-11.0) fL Immature Gran % Neutrophils % Band Neutrophils % % Lymphocytes % Monocytes % Eosinophils % Basophils % Absolute Neutrophils (1.2-6.7) k/cumm Absolute Lymphocytes (1.2-3.4) k/cumm Absolute Monocytes (0.11-0.7) k/cumm Absolute Eosinophils (0.0-0.7) k/cumm Absolute Basophils (0.0-0.2) k/cumm Differential Comment RBC Morphology Polychromasia Macrocytosis PT (9.3-11.0) sec 10.3 INR (0.9-1.1) 1.0 APTT (21.0-31.4) sec 23.7 Sodium (136-145) mmol/L Potassium (3.5-5.1) mmol/L Chloride (98-107) mmol/L Carbon Dioxide (21.0-32.0) mmol/L Anion Gap (3-11) mmol/L BUN (7-18) mg/dL Creatinine (0.55-1.02) mg/dL Estimated GFR/1.73 m2 (mL/min/1.73m2) Glucose (74-106) mg/dL Lactate (0.6-1.4) mmol/L Calcium (8.5-10.1) mg/dL Total Bilirubin (0.2-1.0) mg/dL AST (15-37) U/L ALT (14-59) U/L Alkaline Phosphatase (46-116) U/L Total Protein (6.4-8.2) g/dL Albumin (3.4-5.0) g/dL Lipase (73-393) U/L
[2019-12-28] MEDS: Omnipaque 350 MG/ML 100 ML BTL IJ (14:49)
[2019-12-28] MEDS: CIPROFLOXACIN 400 MG/200 ML BAG 200 MG IVPB (15:35)
[2019-12-28 15:57] LABS: Bilirubin Negative (Negative); Blood Trace-intact (Negative); Clarity Clear (Clear); Glucose Negative (Negative); Ketones Negative (Negative); Leukocyte Esterase Negative (Negative); Nitrite Negative (Negative); Urobilinogen 0.2 EU/dL (Up TO 0.2); pH 6.5 (5-8)
[2019-12-28 16:10] LABS: Bacteria Few HPF (Negative); Epithelial Cells Few HPF (Negative); Other Cells Rare Renal (Negative); WBC 0-2 HPF (0-5)
[2019-12-28 16:11] LABS: C & S Indicated? No; Casts 5-10 Hyaline LPF (Negative); Crystals Negative HPF (Negative); Mucus Moderate (Negative)
--- NOTE | 2019-12-28 16:20 | W.PM.HP.N ---
Date of service: 12/28/19 Time of Service: 16:20 Assessment and Plan Assessment and plan (1) Subarachnoid hemorrhage: Status: Acute Assessment and plan: A\\ 2 weeks ago had a blled. CT scan stable (2) Stage IV adenocarcinoma of lung: Status: Chronic Assessment and plan: A\\ Lung CA with mets to liver, bone and brain P\\ Continue medications Qualifiers: Laterality: unspecified laterality Qualified Code(s): C34.90 - Malignant neoplasm of unspecified part of unspecified bronchus or lung (3) Colitis: Status: Acute Assessment and plan: A\\ Could be due to chemo medications or infectious P\\ Because the patient is immune compromised I will start the patient on antibiotics 1. Diet: NPO except ice chips, sips with medications 2. Pain controll- continue fentanyl and add Dilauded until taking po then will start Oxycodon again 3. Stool for culture 4. Activity- up ad barron History of Present Illness History of Present Illness Chief Complaint: abdominal pain Consults Consult date: 12/28/19 Requesting physician: Nasir Jiménez Narrative: This is a 64-year-old female I was asked to see by Dr. Jiménez, with past medical history of stage IV adenocarcinoma of the lung, leptomeningeal metastatic disease, osseous metastatic disease, currently receiving immunotherapy infusions every at [facility], Irinotecan and xgeva, who is full code, who was recently diagnosed with an intraparenchymal hemorrhage 2 weeks ago, transferred to [facility] and then eventually discharged without complication who presents today for right lower quadrant abdominal pain and slight confusion. Patient is being sent by her [facility] oncologist. Over the last 12 to 24 hours she is developed notable abdominal pain, particularly in the right lower quadrant of the abdomen. She has had associated diarrhea for last few days, nonbloody, with no melena, which per oncology can be a side effect of her current chemotherapy medication. She has been taking Imodium with no improvement. However the pain is notably worsened. The severity of it comes and goes, no apparent aggravating or relieving factors. She did have some Jell-O last night, however this morning it notably got worse, and continued. The patient denies any vomiting. Appetite decreased. She denies any recent antibiotics. She denies any other acute symptoms. Workup in the ER showed Leukocytosis and low Potassium. CT scan reviewed by vt- Head showed no worsening bleed. CT abdomen and pelvis showed thickened cecum and ascending colon with minimal inflammation. Appendix has air in it and is upper limits of normal with no inflammation.- Findings consistent with colitis. This can also be a side effect of the chemotherapy drugs she was given. She also is immune compromised so this could be infectious as well. Review of Systems Constitutional Constitutional: Denies lethargy, Denies night sweats and Reports poor appetite Eyes Eyes: Denies change in vision ENT Ears, Nose, Mouth, and Throat: Denies dysphagia Cardiovascular Cardiovascular: Denies chest pain, Denies chest pain at rest, Denies irregular heart rhythm, Denies lightheadedness, Denies palpitations, Denies dyspnea and Denies dyspnea on exertion Respiratory Respiratory: Denies chest congestion, Denies cough, Denies dyspnea and Denies dyspnea on exertion Gastrointestinal Gastrointestinal: Reports as per HPI, Denies dysphagia, Denies dyspepsia and Denies heartburn Genitourinary Genitourinary: Denies hematuria and Denies dysuria Musculoskeletal Musculoskeletal: Reports system reviewed and no additional complaints, except as docu Integumentary/Breasts Skin/Breast: Reports system reviewed and no additional complaints, except as docu Neurologic Neurologic: Reports system reviewed and no additional complaints, except as docu Psychiatric Psychiatric: Reports system reviewed and no additional complaints, except as docu Endocrine Endocrine: Reports system reviewed and no additional complaints, except as docu and Denies palpitations Hematologic/Lymphatic Hematologic/Lymphatic: Reports system reviewed and no additional complaints, except as docu PFSH Medical History Bipolar disorder (Acute) Brain metastasis (Chronic) Liver metastases (Chronic) Stage IV adenocarcinoma of lung (Chronic) Surgical History History of bunionectomy of left great toe (Inactive ~07/2018) History of liver biopsy (Acute ~06/10/19) small cell neuroendocrine carcinoma S/P hysterectomy (Acute) also BSO Family History Father Prostate cancer metastatic to lung Mother Multiple myeloma Social History Smoking/Tobacco Use Status: Current every day Tobacco Type: cigarettes Years smoked: 20 Tobacco: How many years used: 15 Alcohol Intake: current Alcohol Intake frequency: holidays/special occasions only Drug use: Occasionally Substance use type: marijuana Household members: family Housing: apartment Number of Children: 2 number of grandchildren: 4 Do you feel safe at home: Yes Do you feel safe in your relationship?: Yes Meds Home Medications and Allergies Home Medications Medication Instructions Recorded Confirmed Type venlafaxine [Effexor XR] 150 mg PO DAILY 06/12/19 12/28/19 History polyethylene glycol 3350 [Miralax] 17 gm PO DAILY #30 each 06/22/19 12/28/19 Rx dexamethasone 4 mg PO BID 11/10/19 12/28/19 History ondansetron 4 mg PO Q6H PRN 11/10/19 12/28/19 History docusate sodium 100 mg PO TID 12/14/19 12/28/19 History fentanyl 1 patch TRANSDERMAL Q72H 12/14/19 12/28/19 History oxycodone 5 mg PO Q3H PRN PRN 12/14/19 12/28/19 History Allergies Allergy/AdvReac Type Severity Reaction Status Date / Time bupropion [From Wellbutrin] Allergy Severe Other (See Unverified 12/28/19 12:55 Comment) clarithromycin [From Biaxin] Allergy Severe Anaphylaxsi Unverified 12/28/19 12:55 s shellfish derived Allergy Severe Other (See Unverified 12/28/19 12:55 Comment) cefaclor Allergy Intermediate Skin Rash Unverified 12/28/19 12:55 erythromycin base Allergy Intermediate Other (See Unverified 12/28/19 12:55 Comment) Penicillins Allergy Intermediate Skin Rash Unverified 12/28/19 12:55 sulfamethoxazole Allergy Intermediate Skin Rash Unverified 12/28/19 12:55 [From Bactrim] trimethoprim [From Bactrim] Allergy Intermediate Skin Rash Unverified 12/28/19 12:55 ether Allergy Other (See Unverified 12/28/19 12:55 Comment) acetaminophen [From Vicodin] AdvReac Other (See Unverified 12/28/19 12:55 Comment) hydrocodone [From Vicodin] AdvReac Other (See Unverified 12/28/19 12:55 Comment) Exam Const General: cooperative, no acute distress and well developed Orientation: alert and oriented x3 HENMT Head: normocephalic and atraumatic Eyes Pupils: PERRL Resp Effort & Inspection: normal respiratory effort Auscultation: clear to auscultation bilaterally Cardio Rate: regular rate Rhythm: regular rhythm Heart Sounds: no gallops, no murmurs and no rubs GI Inspection: normal to inspection Palpation: soft, no hepatosplenomegaly and tender in the RLQ (guarding, no rebound) Auscultation: normal bowel sounds Rectal Exam - female: deferred Results Labs Result diagrams: 12/28/19 13:05 12/28/19 13:05 Labs: Laboratory Results - last 24 hr 12/28/19 12/28/19 12/28/19 13:05 13:05 13:05 WBC 17.39 H RBC 3.83 L Hgb 13.1 Hct 40.2 MCV 105.0 H MCH 34.2 H MCHC 32.6 RDW 13.9 Plt Count 238 D MPV 10.5 Immature Gran % See Differential Neutrophils % 62.0 Band Neutrophils % 2.0 Lymphocytes % 24.0 Monocytes % 12.0 Eosinophils % 0.0 Basophils % 0.0 Absolute Neutrophils 11.13 H Absolute Lymphocytes 4.17 H Absolute Monocytes 2.09 H Absolute Eosinophils 0.00 Absolute Basophils 0.00 Differential Comment Manual differential RBC Morphology See below Polychromasia Present Macrocytosis 2+ PT INR APTT Sodium 141 Potassium 3.2 L Chloride 102 Carbon Dioxide 26.0 Anion Gap 13.0 H BUN 28 H Creatinine 0.79 Estimated GFR/1.73 m2 >= 60.00 Glucose 132 H Lactate 1.5 H Calcium 8.5 Total Bilirubin 0.3 AST 27 ALT 51 Alkaline Phosphatase 279 H Total Protein 7.1 Albumin 3.1 L Lipase 169 Urine Color Urine Clarity Urine pH Ur Specific [place] Urine Protein Urine Ketones Urine Blood Urine Nitrite Urine Bilirubin Urine Urobilinogen Ur Leukocyte Esterase Urine RBC Urine WBC Ur Epithelial Cells Urine Crystals Urine Bacteria Urine Casts Urine Mucus Urine Other Ur Culture Indicated? Urine Glucose 12/28/19 12/28/19 13:05 15:52 WBC RBC Hgb Hct MCV MCH MCHC RDW Plt Count MPV Immature Gran % Neutrophils % Band Neutrophils % Lymphocytes % Monocytes % Eosinophils % Basophils % Absolute Neutrophils Absolute Lymphocytes Absolute Monocytes Absolute Eosinophils Absolute Basophils Differential Comment RBC Morphology Polychromasia Macrocytosis PT 10.3 INR 1.0 APTT 23.7 Sodium Potassium Chloride Carbon Dioxide Anion Gap BUN Creatinine Estimated GFR/1.73 m2 Glucose Lactate Calcium Total Bilirubin AST ALT Alkaline Phosphatase Total Protein Albumin Lipase Urine Color Yellow Urine Clarity Clear Urine pH 6.5 Ur Specific [place] 1.010 Urine Protein Trace H Urine Ketones Negative Urine Blood Trace-intact H Urine Nitrite Negative Urine Bilirubin Negative Urine Urobilinogen 0.2 Ur Leukocyte Esterase Negative Urine RBC 5-10 H Urine WBC 0-2 Ur Epithelial Cells Few Urine Crystals Negative Urine Bacteria Few Urine Casts 5-10 hyaline Urine Mucus Moderate Urine Other Rare renal Ur Culture Indicated? No Urine Glucose Negative Last Vital Signs Temp 97.9 F 12/28/19 12:46 Pulse 78 12/28/19 15:54 Resp 16 12/28/19 14:17 BP 95/64 L 12/28/19 15:54 Pulse Ox 91 L 12/28/19 15:31
[2019-12-28] MEDS: Normal Saline 1,000 ML 500 ML IV (16:30)
[2019-12-28] MEDS: metroNIDAZOLE 500 MG/100 ML BAG 100 MG IVPB ×2 (16:49→22:20)
[2019-12-28] MEDS: Ondansetron 4 MG/2 ML VIAL IVP (17:15)
[2019-12-28] MEDS: Lactated Ringers 1,000 ML 125 ML IV (18:17)
[2019-12-28] MEDS: Dexamethasone 4 MG TAB PO (20:12)
[2019-12-28] MEDS: Docusate Sodium 100 MG CAP PO (20:12)
[2019-12-29] MEDS: Lactated Ringers 1,000 ML 125 ML IV ×2 (02:16→16:43)
[2019-12-29] MEDS: CIPROFLOXACIN 400 MG/200 ML BAG 200 MG IVPB ×2 (03:19→16:43)
[2019-12-29] MEDS: metroNIDAZOLE 500 MG/100 ML BAG 100 MG IVPB ×3 (04:48→20:37)
[2019-12-29 07:02] LABS: Abs Immature Grans 0.26 k/cumm (0.0-0.09); HCT 32.4 % (36.0-46.0); HGB 10.6 g/dL (12.0-15.5); Mean Corp. HGB Concentration 32.7 g/dL (32.0-36.0); Mean Corpuscular Hemoglobin 34.5 pg (27.0-33.0); Mean Corpuscular Volume 105.5 fL (80-95); Mean Platelet Volume 10.4 fL (8.0-11.0); RBC 3.07 m/cumm (4.00-5.20); RBC Distribution Width 13.7 % (11.7-14.6); White Blood Cell Count 22.42 k/cumm (4.4-10.8)
[2019-12-29 07:21] LABS: Absolute Neutrophil Count 19.73 k/cumm (1.2-6.7)
[2019-12-29 07:22] LABS: Absolute Monocyte Count 1.79 k/cumm (0.11-0.7); BUN 15 mg/dL (7-18); CREATININE 0.52 mg/dL (0.55-1.02); Calcium 7.4 mg/dL (8.5-10.1); Chloride 104 mmol/L (98-107); Diff Comment Manual Differential; Glucose 108 mg/dL (74-106); Hypochromasia 2+; Macrocytosis 2+; Magnesium 1.6 mg/dL (1.8-2.4); Potassium 3.3 mmol/L (3.5-5.1); Sodium 139 mmol/L (136-145)
[2019-12-29 07:23] LABS: Platelet Count 205 x1000/uL (130-400); Polychromasia Present
[2019-12-29 07:57] VITALS: BP 113/79; PULSE 87; RESP 17; TEMP 36.8; O2SAT 96
[2019-12-29] MEDS: Dexamethasone 4 MG TAB PO (09:34)
[2019-12-29] MEDS: HYDROmorphone 2 MG/ML VIAL IVP (09:34)
[2019-12-29] MEDS: Docusate Sodium 100 MG CAP PO ×3 (09:34→20:38)
[2019-12-29] MEDS: POTASSIUM CHLORIDE 10 MEQ/100 ML BAG 100 MEQ IVPB ×2 (09:36→11:34)
[2019-12-29] MEDS: MAGNESIUM SULFATE 2 GM/50 ML BAG IVPB (09:40)
--- NOTE | 2019-12-29 09:53 | INITIAL_ITS ---
Care Management Initial Assess REASON FOR HOSPITALIZATION:: Colitis PAST MEDICAL HISTORY/PAST SURGICAL HISTORY:: Bipolar disorder, Liver and brain metastases, hysterectomy, bunionectomy of left great toe, liver biopsy PREVIOUS FUNCTIONAL STATUS/SOCIAL/FAMILY SUPPORTS:: Ashley resides with her daugh Rina [place] due to increased struggles medically. She reports her daughter's fiance and their two daughters also reside in the home. She reports feeling happy about this arrangement and is able to watch the children when needed for her daughter. Ashley is disabled and not currently employed. She has three children, a son Wilfredo, her daughter Rina and another son who resides with his and children in [place]. Ashley reports a supportive family including several sisters who come from [place] to help her out, when needed. Ashley previously functioned independently in the community, she is up independently currently as a patient and though has some apparent memory impairments, is pleasant in interaction. CURRENT FUNCTIONAL STATUS:: Ashley is sleeping when CM attempts to meet with her. She remains on precautions at this time, CM continues to follow. Has patient been provided with information about the portal?: Yes Did the patient sign up for the portal?: No CODE STATUS:: Full Code INSURANCE COVERAGE / FINANCIAL ISSUES:: Medicare CURRENT HOME/COMMUNITY SERVICES/EQUIPMENT:: [employer] PHYSICIAN:: Peña Mayfield NP POTENTIAL DISCHARGE NEEDS:: Palliative Care consult, follow up appointments. PATIENT/FAMILY EDUCATION NEEDS:: Review discharge instructions, discuss Ask Me Three. ANTICIPATED BARRIERS TO DISCHARGE:: None identified. TRANSPORTATION:: Via private vehicle with family. PLAN:: Ashley will continue to be closely evaluated at this time. CM to request Palliative Consult-undetermined if this will happen while inpatient or if Ashley will follow up as an outpatient. She is on observation status at this time. CM continues to follow.
--- NOTE | 2019-12-29 14:26 | PGE_ITS ---
Date of Service Date of service: 12/29/19 Time of Service: 14:26 Assessment and Plan Assessment and plan (1) Colitis: Status: Acute Assessment and plan: A\\ HAs worsening Leukocytosis but clinically is better P\\ Antibiotics: Vancomycin added for possible C.Diff 1. Diet: NPO except ice chips, sips 2. Pain control- continue Fentanyl and Dilauded until taking po then will start Oxycodon again 3. Stool for culture- pending 4. Activity- up ad barron 5. Steroids- Increase to stress doses for 3 days and switch to IV 6. DVT prophilaxis- mechanical only due to resent Bleed Plan discussed with patient. Questions answered. Subjective Subjective Interval history since last seen: Job Mccracken is doing well. She feels better. Has had no more N/V. Pain has improved. Burping. Not passing flatus. She does seem to have some memory issues. She asked me when I would take her appendix out. I reviewed with her again the findings of the CT scan. Appendix was normal. CT showed colitis which could be infectious or due to the chemotherapy drugs. She was upset that she was not on Oxycodon. I again let her know that she is NPO and that is why I didn't order Oxycodon and that is why she has Dilauded IV ordered. I again explained that she needed bowel rest. Exam Const General: cooperative and no acute distress Orientation: alert and oriented x3 HENMT Head: normocephalic and atraumatic Resp Effort & Inspection: normal respiratory effort Auscultation: clear to auscultation bilaterally Cardio Rate: regular rate Rhythm: regular rhythm Heart Sounds: no gallops, no murmurs and no rubs GI Palpation: soft, no hepatosplenomegaly and tender (mild RLQ. A lot less then yesterday) Auscultation: hypoactive bowel sounds Objective Objective Clinical Data: Abnormal lab results 12/28/19 12/29/19 12/29/19 Range/Units 15:52 06:25 06:25 WBC 22.42 H (4.4-10.8) k/cumm RBC 3.07 L (4.00-5.20) m/cumm Hgb 10.6 L D (12.0-15.5) g/dL Hct 32.4 L (36.0-46.0) % MCV 105.5 H (80-95) fL MCH 34.5 H (27.0-33.0) pg Absolute Neutrophils 19.73 H (1.2-6.7) k/cumm Absolute Lymphocytes 0.90 L (1.2-3.4) k/cumm Absolute Monocytes 1.79 H (0.11-0.7) k/cumm Potassium 3.3 L (3.5-5.1) mmol/L Creatinine 0.52 L (0.55-1.02) mg/dL Glucose 108 H (74-106) mg/dL Calcium 7.4 L (8.5-10.1) mg/dL Magnesium 1.6 L (1.8-2.4) mg/dL Urine Protein Trace H (Negative) mg/dL Urine Blood Trace-intact H (Negative) Urine RBC 5-10 H (0-2) HPF Vital Signs Temperature 98.2 F 12/29/19 07:57 Temperature Source Tympanic 12/29/19 07:57 Pulse 87 12/29/19 07:57 Pulse Rhythm Regular 12/29/19 04:27 Pulse 92 H 12/28/19 14:17 Respiratory Rate 17 12/29/19 07:57 Respiratory Effort 12/29/19 04:27 Respiratory Depth Normal 12/29/19 04:27 Respiratory Pattern Normal 12/29/19 04:27 Blood Pressure 113/79 12/29/19 07:57 Blood Pressure Mean 74 12/28/19 16:16 Blood Pressure Position Sitting 12/28/19 12:46 Pulse Oximetry 96 12/29/19 07:57 Oxygen Delivery Method Room Air 12/29/19 07:57 Oxygen Flow Rate 0 12/29/19 07:57 Pain Level 0 12/29/19 07:57 Comment 12/28/19 12:46 Intake & Output 12/28/19 12/29/19 12/29/19 23:59 11:59 23:59 Intake Total 1210 / 1310 1497.917 / 1497.917 Output Total 500 / 500 Balance 1210 / 1310 997.917 / 997.917 Weight 158 lb 15.993 oz 157 lb 3.033 oz Intake: IV 1210 / 1310 1497.917 / 1497.917 Output: Urine 500 / 500 Other: Urine Color Dark Radha Urine Appearance Clear Clear Urine Odor Normal Voiding Methods Toilet Laboratory Results WBC 22.42 k/cumm (4.4-10.8) H 12/29/19 06:25 RBC 3.07 m/cumm (4.00-5.20) L 12/29/19 06:25 Hgb 10.6 g/dL (12.0-15.5) L D 12/29/19 06:25 Hct 32.4 % (36.0-46.0) L 12/29/19 06:25 MCV 105.5 fL (80-95) H 12/29/19 06:25 MCH 34.5 pg (27.0-33.0) H 12/29/19 06:25 MCHC 32.7 g/dL (32.0-36.0) 12/29/19 06:25 RDW 13.7 % (11.7-14.6) 12/29/19 06:25 Plt Count 205 x1000/uL (130-400) 12/29/19 06:25 MPV 10.4 fL (8.0-11.0) 12/29/19 06:25 Immature Gran % 0.0 % 12/29/19 06:25 Neutrophils % 82.0 12/29/19 06:25 Band Neutrophils % 6.0 % 12/29/19 06:25 Lymphocytes % 4.0 12/29/19 06:25 Monocytes % 8.0 12/29/19 06:25 Eosinophils % 0.0 12/29/19 06:25 Basophils % 0.0 12/29/19 06:25 Metamyelocytes % 0.0 % 12/29/19 06:25 Absolute Neutrophils 19.73 k/cumm (1.2-6.7) H 12/29/19 06:25 Absolute Lymphocytes 0.90 k/cumm (1.2-3.4) L 12/29/19 06:25 Absolute Monocytes 1.79 k/cumm (0.11-0.7) H 12/29/19 06:25 Absolute Eosinophils 0.00 k/cumm (0.0-0.7) 12/29/19 06:25 Absolute Basophils 0.00 k/cumm (0.0-0.2) 12/29/19 06:25 Differential Comment Manual differential 12/29/19 06:25 RBC Morphology See below 12/29/19 06:25 Polychromasia Present 12/29/19 06:25 Hypochromasia 2+ 12/29/19 06:25 Macrocytosis 2+ 12/29/19 06:25 PT 10.3 sec (9.3-11.0) 12/28/19 13:05 INR 1.0 (0.9-1.1) 12/28/19 13:05 APTT 23.7 sec (21.0-31.4) 12/28/19 13:05 Sodium 139 mmol/L (136-145) 12/29/19 06:25 Potassium 3.3 mmol/L (3.5-5.1) L 12/29/19 06:25 Chloride 104 mmol/L (98-107) 12/29/19 06:25 Carbon Dioxide 26.0 mmol/L (21.0-32.0) 12/29/19 06:25 Anion Gap 9.0 mmol/L (3-11) 12/29/19 06:25 BUN 15 mg/dL (7-18) D 12/29/19 06:25 Creatinine 0.52 mg/dL (0.55-1.02) L 12/29/19 06:25 Estimated GFR/1.73 m2 >= 60.00 (mL/min/1.73m2) 12/29/19 06:25 Glucose 108 mg/dL (74-106) H 12/29/19 06:25 Lactate 1.5 mmol/L (0.6-1.4) H 12/28/19 13:05 Calcium 7.4 mg/dL (8.5-10.1) L 12/29/19 06:25 Magnesium 1.6 mg/dL (1.8-2.4) L 12/29/19 06:25 Total Bilirubin 0.3 mg/dL (0.2-1.0) 12/28/19 13:05 AST 27 U/L (15-37) 12/28/19 13:05 ALT 51 U/L (14-59) 12/28/19 13:05 Alkaline Phosphatase 279 U/L (46-116) H 12/28/19 13:05 Total Protein 7.1 g/dL (6.4-8.2) 12/28/19 13:05 Albumin 3.1 g/dL (3.4-5.0) L 12/28/19 13:05 Lipase 169 U/L (73-393) 12/28/19 13:05 Urine Color Yellow (Yellow) 12/28/19 15:52 Urine Clarity Clear (Clear) 12/28/19 15:52 Urine pH 6.5 (5-8) 12/28/19 15:52 Ur Specific [place] 1.010 (1.005-1.025) 12/28/19 15:52 Urine Protein Trace mg/dL (Negative) H 12/28/19 15:52 Urine Ketones Negative mg/dL (Negative) 12/28/19 15:52 Urine Blood Trace-intact (Negative) H 12/28/19 15:52 Urine Nitrite Negative (Negative) 12/28/19 15:52 Urine Bilirubin Negative (Negative) 12/28/19 15:52 Urine Urobilinogen 0.2 EU/dL (Up TO 0.2) 12/28/19 15:52 Ur Leukocyte Esterase Negative (Negative) 12/28/19 15:52 Urine RBC 5-10 HPF (0-2) H 12/28/19 15:52 Urine WBC 0-2 HPF (0-5) 12/28/19 15:52 Ur Epithelial Cells Few HPF (Negative) 12/28/19 15:52 Urine Crystals Negative HPF (Negative) 12/28/19 15:52 Urine Bacteria Few HPF (Negative) 12/28/19 15:52 Urine Casts 5-10 hyaline LPF (Negative) 12/28/19 15:52 Urine Mucus Moderate (Negative) 12/28/19 15:52 Urine Other Rare renal (Negative) 12/28/19 15:52 Ur Culture Indicated? No 12/28/19 15:52 Urine Glucose Negative mg/dL (Negative) 12/28/19 15:52
--- NOTE | 2019-12-29 14:43 | CHAPLAIN ---
Ronak was sitting up in bed when I visited. She was hooked to several IVs. She said she expects her daughter and son in law to visit later today. She lives with them. ronak seemed comfortable being here. She was friendly and easily engaged in a conversation.
[2019-12-29] MEDS: methylPREDNISolone SUCC 40 MG VIAL IVP (14:55)
[2019-12-29 16:30] VITALS: BP 102/62; PULSE 82; RESP 18; TEMP 36.5; O2SAT 93
[2019-12-29 20:10] VITALS: BP 106/70; PULSE 78; RESP 19; TEMP 36.6; O2SAT 97
[2019-12-29] MEDS: Normal Saline Flush 10 ML SYR IVP (20:38)
[2019-12-31 18:56] LABS: CMV DNA Detect/Quant, P Undetected IU/mL (Undetected)
== END 2019-12-29 22:15 | disposition left against medical advice (07) ==
LOC: ER 16:57 → MS 12-29 06:39
PROVIDERS: Surgery; Admitting Provider Surgery; Emergency Provider Student in an Organized Health Care Education/Training Program; PCP Specialist/Technologist Athletic Trainer; Visit Provider Surgery
DX: K52.9 Noninfective gastroenteritis and colitis, unspecified (principal); C34.90 Malignant neoplasm of unspecified part of unspecified bronchus or lung; Z79.899 Other long term (current) drug therapy; I60.9 Nontraumatic subarachnoid hemorrhage, unspecified; C79.49 Secondary malignant neoplasm of other parts of nervous system; C79.51 Secondary malignant neoplasm of bone
CPT/HCPCS: 36415; 74177; 80048; 80053; 83690; 87329; 96361; 96365; 99219; 99223; 99225; 99233; 99285; 70450; 71260; 81003; 81015; 82270; 83605; 83735; 83993; 85025; 85610; 85730; 87324; 87497; G0378; J0744; J2405; J3370; J3480; J3490; J8540

== ENCOUNTER 2020-01-07 17:52 | Inpatient (IN) | payer MEDICARE, SELFPAY ==
[2020-01-07] VITALS (25 sets, daily range): BP systolic 92–121; BP diastolic 68–92; PULSE 86–104; RESP 11–22; TEMP 36.4–36.7; O2SAT 94–100
--- NOTE | 2020-01-07 18:00 | DI.CT_ITS ---
EXAM: CT HEAD WO CT HEAD WO CLINICAL HISTORY: altered mental status, r/o acute disease. altered mental status, r/o acute disease TECHNIQUE: Imaging Protocol: Axial computed tomography images with coronal and sagittal reformatted images were created and reviewed COMPARISON: CT HEAD WO from 12/28/2019 FINDINGS: The ventricular system is normal in appearance. No evidence of acute intracranial hemorrhage, mass effect, or midline shift. The orbital structures are unremarkable. The temporal bone structures appear intact. Calvarium: Normal. Visualized Paranasal sinuses/Mastoids: Clear. IMPRESSION: Normal cranial CT. RADIATION DOSE DELIVERED: DATA REPOSITORY: All CT scans at this facility are submitted to the National Radiology Data Registry (NRDR) Dose Index Registry (DIR) with the [employer] (ACR). RADIATION OPTIMIZATION: All CT scans at this facility use at least one of these dose optimization te chniques: automated exposure control; mA and/or kV adjustment per patient size (includes targeted exa ms where dose is matched to clinical indication); or iterative reconstruction.
--- NOTE | 2020-01-07 18:00 | DI.RAD_ITS ---
EXAM: XR CHEST 1V IN DI DEPT XR CHEST 1V IN DI DEPT CLINICAL HISTORY: altered mental status, r/o acute disease. altered mental status, r/o acute disease TECHNIQUE: 2D digital imaging was performed. COMPARISON: CHEST 2 VIEWS PA,LAT from 04/29/2018 FINDINGS: LUNGS: Clear. No pleural abnormality seen. HEART: Normal. MEDIASTINUM: Normal. OTHER FINDINGS: None. IMPRESSION: No acute pulmonary findings. DATA REPOSITORY: RADIATION DOSE DELIVERED:
--- NOTE | 2020-01-07 18:29 | DI.VRAD_ITS ---
PROCEDURE INFORMATION: Exam: CT Head Without Contrast Exam date and time: 01/07/2020 6:02 PM Age: 64 years old Clinical indication: Altered mental status/memory loss and other: Seizure; Additional info: R/O acute disease TECHNIQUE: Imaging protocol: Computed tomography of the head without contrast. COMPARISON: CT HEAD WO 12/28/2019 2:29 PM FINDINGS: Brain: Normal. No hemorrhage. Unremarkable white matter. No mass effect. Ventricles: Normal. No ventriculomegaly. Bones/joints: Unremarkable. No acute fracture. Sinuses: Visualized sinuses are unremarkable. No fluid levels. Mastoid air cells: Visualized mastoid air cells are well aerated. Soft tissues: Unremarkable. IMPRESSION: No acute intracranial abnormality. Dictated and Authenticated by: Saritha Daily MD. Ordering:GERALDINE Burk MD
[2020-01-07 18:33] LABS: Abs Immature Grans 0.15 k/cumm (0.0-0.09); Absolute Basophil Count 0.01 k/cumm (0.0-0.2); Absolute Lymphocyte Count 0.87 k/cumm (1.2-3.4); Absolute Monocyte Count 0.49 k/cumm (0.11-0.7); Basophils % 0.1; HCT 39.7 % (36.0-46.0); HGB 13.1 g/dL (12.0-15.5); Immature Grans % 1.2 %; Lymphocytes % 6.7; Mean Corpuscular Hemoglobin 34.7 pg (27.0-33.0); Mean Platelet Volume 9.9 fL (8.0-11.0); Monocytes % 3.8; Neutrophils % 88.2; Platelet Count 203 x1000/uL (130-400); RBC 3.78 m/cumm (4.00-5.20); RBC Distribution Width 14.9 % (11.7-14.6); White Blood Cell Count 12.97 k/cumm (4.4-10.8)
[2020-01-07] MEDS: Dexamethasone 10 MG/ML VIAL IVP (18:33)
[2020-01-07 18:34] LABS: Absolute Neutrophil Count 11.44 k/cumm (1.2-6.7)
--- NOTE | 2020-01-07 18:39 | ED.GENADUL_ITS ---
Discharge Plan Disposition Patient Disposition: [facility] INPATIENT Condition: Stable Discharge Details Chief Complaint: Seizure Clinical Impression: New onset seizure, History of lung cancer, History of known metastasis to liver, History of cancer metastatic to brain Primary Care Provider: Julian Wadsworth ED Provider: Bhargavi Art Home Meds and New Rx's Prescriptions: No Action polyethylene glycol 3350 [Miralax] 17 gram powder in packet 17 gm PO DAILY Qty: 30 RF: 0 docusate sodium 100 mg Capsule 100 mg PO TID RF: 0 fentanyl 25 mcg/hr Patch 72 Hour 1 patch TRANSDERMAL Q72H RF: 0 oxycodone 5 mg Tablet 5 mg PO Q3H PRN PRNRF: 0 venlafaxine [Effexor XR] 150 mg Capsule,Extended Release 24hr 150 mg PO DAILY RF: 0 dexamethasone 4 mg Tablet 4 mg PO BID RF: 0 ondansetron 4 mg Tablet,Disintegrating 4 mg PO Q6H PRNRF: 0 Medical Decision Making 1754 -- 64-year-old female with a history of 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 EMS noted patient to have decreased responsiveness but breathing with a pulse. Upon arrival to ED, patient appeared postictal, but restless and pulled out her IV upon arrival. Airway intact. Vitals within normal limits. Lungs clear. Pupils equal. No focal deficits. Moving all extremities. Patient referred for stat CT head and chest x-ray which were negative. Patient given load of IV Keppra and steroids. Upon return from radiology, patient more alert but still somewhat postictal. Daughter at bedside stating that patient is a full code. She is requesting I discuss case with her oncologist Dr. Chavis. 1829 -- Case discussed with Dr. Strickland who accepts patient for admission. 1839 --discussed with patient's oncologist Dr. Chavis -agrees with plan for steroids and Keppra. States that there was discussion of possible home hospice and agrees with plan for palliative care consult. No other acute recommendations. 1929 --patient still appearing postictal. She is arousable to voice. Vitals within normal limits. Medical Records Medical records reviewed: Yes I reviewed the patient's medical records. Imaging Data Radiologic Study: Radiologist's impression: XR Chest, 1 View Exam date and time: 01/07/2020 6:22 PM Age: 64 years old Clinical indication: Condition or disease; Patient HX: Altered mental status, seizure; Additional info: R/O acute disease TECHNIQUE: Imaging protocol: XR of the chest Views: 1 view. COMPARISON: No relevant prior studies available. FINDINGS: Lungs: Unremarkable. No consolidation. Pleural space: Unremarkable. No pleural effusion. No pneumothorax. Heart/Mediastinum: Unremarkable. No cardiomegaly. Bones/joints: Unremarkable. IMPRESSION: No acute findings. CT Head Without Contrast Exam date and time: 01/07/2020 6:02 PM Age: 64 years old Clinical indication: Altered mental status/memory loss and other: Seizure; Additional info: R/O acute disease TECHNIQUE: Imaging protocol: Computed tomography of the head without contrast. COMPARISON: CT HEAD WO 12/28/2019 2:29 PM FINDINGS: Brain: Normal. No hemorrhage. Unremarkable white matter. No mass effect. Ventricles: Normal. No ventriculomegaly. Bones/joints: Unremarkable. No acute fracture. Sinuses: Visualized sinuses are unremarkable. No fluid levels. Mastoid air cells: Visualized mastoid air cells are well aerated. Soft tissues: Unremarkable. IMPRESSION: No acute intracranial abnormality. Lab Data Lab results reviewed: Yes I reviewed the patient's lab results. Labs: Laboratory Tests Range/Units 01/07/20 01/07/20 01/07/20 17:58 18:00 18:00 WBC (4.4-10.8) k/cumm RBC (4.00-5.20) m/cumm Hgb (12.0-15.5) g/dL Hct (36.0-46.0) % MCV (80-95) fL MCH (27.0-33.0) pg MCHC (32.0-36.0) g/dL RDW (11.7-14.6) % Plt Count (130-400) x1000/uL MPV (8.0-11.0) fL Immature Gran % % Neutrophils % Lymphocytes % Monocytes % Eosinophils % Basophils % Absolute Neutrophils (1.2-6.7) k/cumm Absolute Lymphocytes (1.2-3.4) k/cumm Absolute Monocytes (0.11-0.7) k/cumm Absolute Eosinophils (0.0-0.7) k/cumm Absolute Basophils (0.0-0.2) k/cumm PT (9.3-11.0) sec 10.4 INR (0.9-1.1) 1.0 APTT (21.0-31.4) sec 21.2 ABG Sample Site Cancelled ABG pH Cancelled ABG pCO2 Cancelled ABG pO2 Cancelled ABG HCO3 Cancelled ABG Total CO2 Cancelled ABG O2 Saturation Cancelled ABG Base Excess Cancelled Oxygen Liter Flow Cancelled FiO2 Cancelled Sodium (136-145) mmol/L 140 Potassium (3.5-5.1) mmol/L 4.4 Chloride (98-107) mmol/L 99 Carbon Dioxide (21.0-32.0) mmol/L 26.5 Anion Gap (3-11) mmol/L 14.5 H BUN (7-18) mg/dL 17 Creatinine (0.55-1.02) mg/dL 0.68 Estimated GFR/1.73 m2 (mL/min/1.73m2) >= 60.00 Glucose (74-106) mg/dL 164 H Calcium (8.5-10.1) mg/dL 8.2 L Magnesium (1.8-2.4) mg/dL 1.8 Total Bilirubin (0.2-1.0) mg/dL 0.5 AST (15-37) U/L 72 H ALT (14-59) U/L 79 H Alkaline Phosphatase (46-116) U/L 226 H Troponin I (<0.06) ng/Ml < 0.05 Total Protein (6.4-8.2) g/dL 7.2 Albumin (3.4-5.0) g/dL 3.4 Urine Color (Yellow) Urine Clarity (Clear) Urine pH (5-8) Ur Specific [place] (1.005-1.025) Urine Protein (Negative) mg/dL Urine Ketones (Negative) mg/dL Urine Blood (Negative) Urine Nitrite (Negative) Urine Bilirubin (Negative) Urine Urobilinogen (Up TO 0.2) EU/dL Ur Leukocyte Esterase (Negative) Urine RBC (0-2) HPF Urine WBC (0-5) HPF Ur Epithelial Cells (Negative) HPF Urine Crystals (Negative) HPF Urine Bacteria (Negative) HPF Urine Mucus (Negative) Ur Culture Indicated? Urine Glucose (Negative) mg/dL Salicylates (2.8-20.0) mg/dL Urine Opiates Screen (Negative) Urine Methadone Screen (Negative) Acetaminophen (10-30) ug/mL Ur Barbiturates Screen (Negative) Ur Tricyclics Screen (Negative) Ur Amphetamines Screen (Negative) U Benzodiazepines Scrn (Negative) Urine Cocaine Screen (Negative) Ur THC Screen (Negative) Ethyl Alcohol (<3) mg/dL < 3.0 Range/Units 01/07/20 01/07/20 01/07/20 18:00 18:00 18:50 WBC (4.4-10.8) k/cumm 12.97 H RBC (4.00-5.20) m/cumm 3.78 L Hgb (12.0-15.5) g/dL 13.1 Hct (36.0-46.0) % 39.7 MCV (80-95) fL 105.0 H MCH (27.0-33.0) pg 34.7 H MCHC (32.0-36.0) g/dL 33.0 RDW (11.7-14.6) % 14.9 H Plt Count (130-400) x1000/uL 203 MPV (8.0-11.0) fL 9.9 Immature Gran % % 1.2 Neutrophils % 88.2 Lymphocytes % 6.7 Monocytes % 3.8 Eosinophils % 0.0 Basophils % 0.1 Absolute Neutrophils (1.2-6.7) k/cumm 11.44 H Absolute Lymphocytes (1.2-3.4) k/cumm 0.87 L Absolute Monocytes (0.11-0.7) k/cumm 0.49 Absolute Eosinophils (0.0-0.7) k/cumm 0.00 Absolute Basophils (0.0-0.2) k/cumm 0.01 PT (9.3-11.0) sec INR (0.9-1.1) APTT (21.0-31.4) sec ABG Sample Site ABG pH ABG pCO2 ABG pO2 ABG HCO3 ABG Total CO2 ABG O2 Saturation ABG Base Excess Oxygen Liter Flow FiO2 Sodium (136-145) mmol/L Potassium (3.5-5.1) mmol/L Chloride (98-107) mmol/L Carbon Dioxide (21.0-32.0) mmol/L Anion Gap (3-11) mmol/L BUN (7-18) mg/dL Creatinine (0.55-1.02) mg/dL Estimated GFR/1.73 m2 (mL/min/1.73m2) Glucose (74-106) mg/dL Calcium (8.5-10.1) mg/dL Magnesium (1.8-2.4) mg/dL Total Bilirubin (0.2-1.0) mg/dL AST (15-37) U/L ALT (14-59) U/L Alkaline Phosphatase (46-116) U/L Troponin I (<0.06) ng/Ml Total Protein (6.4-8.2) g/dL Albumin (3.4-5.0) g/dL Urine Color (Yellow) Yellow Urine Clarity (Clear) Sl cloudy Urine pH (5-8) 7.0 Ur Specific [place] (1.005-1.025) >= 1.030 H Urine Protein (Negative) mg/dL 30 H Urine Ketones (Negative) mg/dL 15 H Urine Blood (Negative) Trace-intact H Urine Nitrite (Negative) Negative Urine Bilirubin (Negative) Negative Urine Urobilinogen (Up TO 0.2) EU/dL 0.2 Ur Leukocyte Esterase (Negative) Negative Urine RBC (0-2) HPF 0-2 Urine WBC (0-5) HPF 0-2 Ur Epithelial Cells (Negative) HPF Many Urine Crystals (Negative) HPF Negative Urine Bacteria (Negative) HPF Few Urine Mucus (Negative) Negative Ur Culture Indicated? No Urine Glucose (Negative) mg/dL Negative Salicylates (2.8-20.0) mg/dL < 2.8 Urine Opiates Screen (Negative) Urine Methadone Screen (Negative) Acetaminophen (10-30) ug/mL < 2 Ur Barbiturates Screen (Negative) Ur Tricyclics Screen (Negative) Ur Amphetamines Screen (Negative) U Benzodiazepines Scrn (Negative) Urine Cocaine Screen (Negative) Ur THC Screen (Negative) Ethyl Alcohol (<3) mg/dL Range/Units 01/07/20 18:50 WBC (4.4-10.8) k/cumm RBC (4.00-5.20) m/cumm Hgb (12.0-15.5) g/dL Hct (36.0-46.0) % MCV (80-95) fL MCH (27.0-33.0) pg MCHC (32.0-36.0) g/dL RDW (11.7-14.6) % Plt Count (130-400) x1000/uL MPV (8.0-11.0) fL Immature Gran % % Neutrophils % Lymphocytes % Monocytes % Eosinophils % Basophils % Absolute Neutrophils (1.2-6.7) k/cumm Absolute Lymphocytes (1.2-3.4) k/cumm Absolute Monocytes (0.11-0.7) k/cumm Absolute Eosinophils (0.0-0.7) k/cumm Absolute Basophils (0.0-0.2) k/cumm PT (9.3-11.0) sec INR (0.9-1.1) APTT (21.0-31.4) sec ABG Sample Site ABG pH ABG pCO2 ABG pO2 ABG HCO3 ABG Total CO2 ABG O2 Saturation ABG Base Excess Oxygen Liter Flow FiO2 Sodium (136-145) mmol/L Potassium (3.5-5.1) mmol/L Chloride (98-107) mmol/L Carbon Dioxide (21.0-32.0) mmol/L Anion Gap (3-11) mmol/L BUN (7-18) mg/dL Creatinine (0.55-1.02) mg/dL Estimated GFR/1.73 m2 (mL/min/1.73m2) Glucose (74-106) mg/dL Calcium (8.5-10.1) mg/dL Magnesium (1.8-2.4) mg/dL Total Bilirubin (0.2-1.0) mg/dL AST (15-37) U/L ALT (14-59) U/L Alkaline Phosphatase (46-116) U/L Troponin I (<0.06) ng/Ml Total Protein (6.4-8.2) g/dL Albumin (3.4-5.0) g/dL Urine Color (Yellow) Urine Clarity (Clear) Urine pH (5-8) Ur Specific [place] (1.005-1.025) Urine Protein (Negative) mg/dL Urine Ketones (Negative) mg/dL Urine Blood (Negative) Urine Nitrite (Negative) Urine Bilirubin (Negative) Urine Urobilinogen (Up TO 0.2) EU/dL Ur Leukocyte Esterase (Negative) Urine RBC (0-2) HPF Urine WBC (0-5) HPF Ur Epithelial Cells (Negative) HPF Urine Crystals (Negative) HPF Urine Bacteria (Negative) HPF Urine Mucus (Negative) Ur Culture Indicated? Urine Glucose (Negative) mg/dL Salicylates (2.8-20.0) mg/dL Urine Opiates Screen (Negative) Positive A Urine Methadone Screen (Negative) Negative Acetaminophen (10-30) ug/mL Ur Barbiturates Screen (Negative) Negative Ur Tricyclics Screen (Negative) Negative Ur Amphetamines Screen (Negative) Negative U Benzodiazepines Scrn (Negative) Negative Urine Cocaine Screen (Negative) Negative Ur THC Screen (Negative) Positive A Ethyl Alcohol (<3) mg/dL ECG Data Attestation: I personally reviewed and interpreted this ECG (s) as follows: Interpretation: rate of 97 bpm, sinus, no acute ST elevation or depression. Mildly prolonged QT at 495. PA 118. QRS 100. HPI General Mode of arrival: EMS . Date/Time Provider Initiated Documentation: 01/07/20 18:52 . Limitations to Documentation: altered mental status . Information obtained by: family and EMS . HPI Narrative: Patient is a 64-year-old female with a history of stage IV lung adenocarcinoma with metastasis to liver and brain, long smoking and alcohol history presents status post new onset seizure. Patient has a history of subarachnoid hemorrhage 1 month ago. EMS reports that daughter witnessed patient to have a seizure. Daughter states that this lasted approximately 15 to 30 seconds and body appeared tense and rigid. Daughter states that prior to onset of seizure patient was noted to have a blank stare . Daughter states that patient was laying in bed when this occurred and denies any trauma or injury. Daughter states that since this morning, patient has been more lethargic and confused. She states that patient was refusing to go to the ER all day today. Related Data Home Medications Medication Instructions Recorded Confirmed venlafaxine [Effexor XR] 150 mg PO DAILY 06/12/19 12/28/19 polyethylene glycol 3350 [Miralax] 17 gm PO DAILY #30 each 06/22/19 12/28/19 dexamethasone 4 mg PO BID 11/10/19 12/28/19 ondansetron 4 mg PO Q6H PRN 11/10/19 12/28/19 docusate sodium 100 mg PO TID 12/14/19 12/28/19 fentanyl 1 patch TRANSDERMAL Q72H 12/14/19 12/28/19 oxycodone 5 mg PO Q3H PRN PRN 12/14/19 12/28/19 Previous Rx's Medication Instructions Recorded polyethylene glycol 3350 [Miralax] 17 gm PO DAILY #30 each 06/22/19 Allergies Allergy/AdvReac Type Severity Reaction Status Date / Time bupropion [From Wellbutrin] Allergy Severe Other (See Unverified 12/28/19 12:55 Comment) clarithromycin [From Biaxin] Allergy Severe Anaphylaxsi Unverified 12/28/19 12:55 s shellfish derived Allergy Severe Other (See Unverified 12/28/19 12:55 Comment) cefaclor Allergy Intermediate Skin Rash Unverified 12/28/19 12:55 erythromycin base Allergy Intermediate Other (See Unverified 12/28/19 12:55 Comment) Penicillins Allergy Intermediate Skin Rash Unverified 12/28/19 12:55 sulfamethoxazole Allergy Intermediate Skin Rash Unverified 12/28/19 12:55 [From Bactrim] trimethoprim [From Bactrim] Allergy Intermediate Skin Rash Unverified 12/28/19 12:55 ether Allergy Other (See Unverified 12/28/19 12:55 Comment) acetaminophen [From Vicodin] AdvReac Other (See Unverified 12/28/19 12:55 Comment) hydrocodone [From Vicodin] AdvReac Other (See Unverified 12/28/19 12:55 Comment) General Stated Complaint: Seizure ARABELLA: 2 Review of Systems Unobtainable due to mental status PFSH Medical History Bipolar disorder (Acute) Brain metastasis (Chronic) Liver metastases (Chronic) Stage IV adenocarcinoma of lung (Chronic) Surgical History History of bunionectomy of left great toe (Inactive ~07/2018) History of liver biopsy (Acute ~06/10/19) small cell neuroendocrine carcinoma S/P hysterectomy (Acute) also BSO Family History Father Prostate cancer metastatic to lung Mother Multiple myeloma Social History Smoking/Tobacco Use Status: Current every day Tobacco Type: cigarettes Years smoked: 20 Tobacco: How many years used: 15 Alcohol Intake: current Alcohol Intake frequency: holidays/special occasions only Drug use: Occasionally Substance use type: marijuana Household members: family Housing: apartment Number of Children: 2 number of grandchildren: 4 Do you feel safe at home: Yes Do you feel safe in your relationship?: Yes Exam Const General: ill appearing chronically and other (agitated, restless, pulled out IV) Orientation: other (awakens with sternal rub) [facility] Head: normal to inspection Ears: hearing grossly normal bilaterally and external ears normal General nose exam: external nose normal Face and sinus: normal facial exam Mouth: oral mucosae normal Teeth and gingiva: dentition normal Throat: posterior oropharynx normal Eyes General: appearance normal, both eyes and all related structures Eyelids: eyelids normal Pupils: PERRL Neck Neck: normal visual inspection Lymphatic: no lymphadenopathy noted Chest Chest: normal inspection of the chest Resp Effort & Inspection: normal respiratory effort and able to speak in complete sentences Auscultation: clear to auscultation bilaterally Cardio Rate: regular rate Rhythm: regular rhythm GI Inspection: normal to inspection Palpation: soft, not firm, no guarding, no hepatosplenomegaly, no masses and nontender Auscultation: normal bowel sounds Back/Spine/Pelvis Back: no CVA tenderness Skin General skin exam: no rashes or lesions noted Neuro General: moves all extremities and other (Lethargic, appearing postictal, arousable to sternal rub) Speech: abnormal speech slurred (When arousable) Extrem General: normal to inspection, full ROM and capillary refill normal Psych Appearance: grossly normal Affect: irritable affect (At times) and blunted Course Vital Signs Vital signs: Vital Signs Temperature 98.1 F 01/07/20 17:45 Pulse 96 H 01/07/20 17:45 Respiratory Rate 14 01/07/20 17:45 Blood Pressure 117/77 01/07/20 17:45 Pulse Oximetry 96 01/07/20 17:45 Temperature 98.1 F 01/07/20 17:45 Temperature Source Skin 01/07/20 17:45 Pulse 96 H 01/07/20 17:45 Respiratory Rate 14 01/07/20 17:45 Blood Pressure 117/77 03/20/20 17:45 Blood Pressure Position Supine 01/07/20 17:45 Pulse Oximetry 96 01/07/20 17:45 Oxygen Delivery Method Nasal Cannula 01/07/20 17:45 Oxygen Flow Rate 2 01/07/20 17:45 Lab/Test Results Lab/Test Results: Laboratory Tests Range/Units 01/07/20 18:00 WBC (4.4-10.8) k/cumm 12.97 H RBC (4.00-5.20) m/cumm 3.78 L Hgb (12.0-15.5) g/dL 13.1 Hct (36.0-46.0) % 39.7 MCV (80-95) fL 105.0 H MCH (27.0-33.0) pg 34.7 H MCHC (32.0-36.0) g/dL 33.0 RDW (11.7-14.6) % 14.9 H Plt Count (130-400) x1000/uL 203 MPV (8.0-11.0) fL 9.9 Immature Gran % % 1.2 Neutrophils % 88.2 Lymphocytes % 6.7 Monocytes % 3.8 Eosinophils % 0.0 Basophils % 0.1 Absolute Neutrophils (1.2-6.7) k/cumm 11.44 H Absolute Lymphocytes (1.2-3.4) k/cumm 0.87 L Absolute Monocytes (0.11-0.7) k/cumm 0.49 Absolute Eosinophils (0.0-0.7) k/cumm 0.00 Absolute Basophils (0.0-0.2) k/cumm 0.01
[2020-01-07] MEDS: Normal Saline 1,000 ML 1000 ML IV (18:40)
[2020-01-07] MEDS: levETIRAcetam 1,000 MG in Normal Saline 100 ML 400 MG IVPB (18:40)
[2020-01-07 18:46] LABS: PTT Activated 21.2 sec (21.0-31.4); Prothrombin Time 10.4 sec (9.3-11.0)
--- NOTE | 2020-01-07 18:52 | HPE_ITS ---
Date of service: 01/07/20 Time of Service: 18:52 Assessment and Plan Assessment and plan (1) Seizure: Status: Acute Assessment and plan: New onset seizure in setting of known metastatic disease to brain. Will continue steroids and Keppra. Will await chemistries and obtain u/a and tox screen. Will update when labs resulted. Reviewed advance directives with daughter. States that mother wants full code. reviewed overall prognosis and it is agreed that palliative consult would be helpful. History of Present Illness History of Present Illness Chief Complaint: seizure Narrative: 64 female with lung CA metastatic to liver and brain. has been receiving chemo but recently d/ c'ed due to diarrhea. has not been taking good PO. Today daughter notes confusion earlier in the day, and then witnessed seizure some 1-2 hours [employer] -- consisting of shaking in all 4 limbs and then post-ictal somnolence. Here in ER CT head shows no bleed or mass effect. Patient given Decadron and loading dose Keppra. At this time she is post-ictal, history obtained from daughter. Labs all pending at this time. No new meds. Review of Systems Unobtainable due to mental status [facility] Medical History Bipolar disorder (Acute) Brain metastasis (Chronic) Liver metastases (Chronic) Stage IV adenocarcinoma of lung (Chronic) Surgical History History of bunionectomy of left great toe (Inactive ~07/2018) History of liver biopsy (Acute ~06/10/19) small cell neuroendocrine carcinoma S/P hysterectomy (Acute) also BSO Family History Father Prostate cancer metastatic to lung Mother Multiple myeloma Social History Smoking/Tobacco Use Status: Current every day Tobacco Type: cigarettes Years smoked: 20 Tobacco: How many years used: 15 Alcohol Intake: current Alcohol Intake frequency: holidays/special occasions only Drug use: Occasionally Substance use type: marijuana Household members: family Housing: apartment Number of Children: 2 number of grandchildren: 4 Do you feel safe at home: Yes Do you feel safe in your relationship?: Yes Meds Home Medications and Allergies Home Medications Medication Instructions Recorded Confirmed Type venlafaxine [Effexor XR] 150 mg PO DAILY 06/12/19 12/28/19 History polyethylene glycol 3350 [Miralax] 17 gm PO DAILY #30 each 06/22/19 12/28/19 Rx dexamethasone 4 mg PO BID 11/10/19 12/28/19 History ondansetron 4 mg PO Q6H PRN 11/10/19 12/28/19 History docusate sodium 100 mg PO TID 12/14/19 12/28/19 History fentanyl 1 patch TRANSDERMAL Q72H 12/14/19 12/28/19 History oxycodone 5 mg PO Q3H PRN PRN 12/14/19 12/28/19 History Allergies Allergy/AdvReac Type Severity Reaction Status Date / Time bupropion [From Wellbutrin] Allergy Severe Other (See Unverified 12/28/19 12:55 Comment) clarithromycin [From Biaxin] Allergy Severe Anaphylaxsi Unverified 12/28/19 12:55 s shellfish derived Allergy Severe Other (See Unverified 12/28/19 12:55 Comment) cefaclor Allergy Intermediate Skin Rash Unverified 12/28/19 12:55 erythromycin base Allergy Intermediate Other (See Unverified 12/28/19 12:55 Comment) Penicillins Allergy Intermediate Skin Rash Unverified 12/28/19 12:55 sulfamethoxazole Allergy Intermediate Skin Rash Unverified 12/28/19 12:55 [From Bactrim] trimethoprim [From Bactrim] Allergy Intermediate Skin Rash Unverified 12/28/19 12:55 ether Allergy Other (See Unverified 12/28/19 12:55 Comment) acetaminophen [From Vicodin] AdvReac Other (See Unverified 12/28/19 12:55 Comment) hydrocodone [From Vicodin] AdvReac Other (See Unverified 12/28/19 12:55 Comment) Exam Narrative Exam Narrative: 117/77, 96, 14, 36.7. 96%. HEENT atraumatic. neck supple; lungs clear; heart RRR; abdomen soft and NT; extremities w/o edema; neuro: resting quietly, purposeful movements to painful stimulus and calling out to stop (st aff attempting to obtain radial ABG). Results Labs Result diagrams: 01/07/20 18:00 01/07/20 18:00 Labs: Laboratory Results - last 24 hr 01/07/20 01/07/20 18:00 18:00 WBC 12.97 H RBC 3.78 L Hgb 13.1 Hct 39.7 MCV 105.0 H MCH 34.7 H MCHC 33.0 RDW 14.9 H Plt Count 203 MPV 9.9 Immature Gran % 1.2 Neutrophils % 88.2 Lymphocytes % 6.7 Monocytes % 3.8 Eosinophils % 0.0 Basophils % 0.1 Absolute Neutrophils 11.44 H Absolute Lymphocytes 0.87 L Absolute Monocytes 0.49 Absolute Eosinophils 0.00 Absolute Basophils 0.01 PT 10.4 INR 1.0 APTT 21.2 Last Vital Signs Temp 36.7 C 01/07/20 17:45 Pulse 96 H 01/07/20 17:45 Resp 14 01/07/20 17:45 BP 117/77 01/07/20 17:45 Pulse Ox 96 01/07/20 17:45
[2020-01-07 18:53] LABS: Salicylate < 2.8 mg/dL (2.8-20.0)
[2020-01-07 19:05] LABS: Acetaminophen < 2 ug/mL (10-30)
[2020-01-07 19:05] LABS: Bilirubin Negative (Negative); Blood Trace-intact (Negative); Glucose Negative (Negative); Ketones 15 mg/dL (Negative); Leukocyte Esterase Negative (Negative); Nitrite Negative (Negative); Specific Gravity >= 1.030 (1.005-1.025); Urobilinogen 0.2 EU/dL (Up TO 0.2)
[2020-01-07 19:07] LABS: Clarity Sl Cloudy (Clear)
[2020-01-07 19:08] LABS: ALT 79 U/L (14-59); AST 72 U/L (15-37); Albumin 3.4 g/dL (3.4-5.0); Alkaline Phosphatase 226 U/L (46-116); Anion Gap 14.5 mmol/L (3-11); BUN 17 mg/dL (7-18); Bilirubin, Total 0.5 mg/dL (0.2-1.0); CO2 26.5 mmol/L (21.0-32.0); CREATININE 0.68 mg/dL (0.55-1.02); Calcium 8.2 mg/dL (8.5-10.1); Chloride 99 mmol/L (98-107); ETHANOL BLOOD < 3.0 mg/dL (<3); Glucose 164 mg/dL (74-106); Magnesium 1.8 mg/dL (1.8-2.4); Potassium 4.4 mmol/L (3.5-5.1); Sodium 140 mmol/L (136-145); Total Protein 7.2 g/dL (6.4-8.2); Troponin I < 0.05 ng/Ml (<0.06)
[2020-01-07 19:16] LABS: Bacteria Few HPF (Negative); C & S Indicated? No; Crystals Negative HPF (Negative); Epithelial Cells Many HPF (Negative); Mucus Negative (Negative); RBC 0-2 HPF (0-2); WBC 0-2 HPF (0-5)
[2020-01-07 19:25] LABS: *AMPHETAMINES SCREEN URINE Negative (Negative); *BARBITURATES SCREEN URINE Negative (Negative); *BENZODIAZEPINES SCREEN URINE Negative (Negative); Cannabinoids THC POSITIVE (Negative); Cocaine Screen,Urine Negative (Negative); METHADONE URINE SCREEN Negative (Negative); OPIATES URINE SCREEN POSITIVE (Negative)
[2020-01-07 19:41] LABS: Tricyclic Antidepressants Negative (Negative)
--- NOTE | 2020-01-07 20:18 | NUR.NOTE ---
unable to verify allergies or meds Nursing Note:
[2020-01-08] MEDS: oxyCODONE 5 MG TAB PO ×3 (01:04→19:46)
[2020-01-08] MEDS: LORazepam 1 MG TAB PO ×3 (01:04→19:45)
[2020-01-08] MEDS: Normal Saline 1,000 ML 80 ML IV ×2 (02:41→20:00)
[2020-01-08] MEDS: Normal Saline Flush 10 ML SYR (05:01)
[2020-01-08 07:17] VITALS: BP 103/73; PULSE 109; RESP 18; TEMP 37.1; O2SAT 97
--- NOTE | 2020-01-08 08:05 | INITIAL_ITS ---
- If Service Date Differs Date of service: 01/08/20 Time of Service: 11:00 Care Management Initial Assess REASON FOR HOSPITALIZATION:: New onset seizure, History of lung cancer, History of known metastasis to liver, History of cancer metastatic to brain, Bipolar disorder, hysterectomy, bunionectomy of left great toe, liver biopsy PAST MEDICAL HISTORY/PAST SURGICAL HISTORY:: Ashley resides with her daughter, Rina due to increased struggles medically. Her daughter's fiance and their two daughters also reside in the home. Ashley has three children, a son Wilfredo, her daughter Rina and another son who resides with his and children in [place]. Ashley has a supportive family including several sisters who come from [place] to help her out, when needed. Ashley previously functioned independently in the community, though she has advanced metastatic cancer and is expected to require end of life care soon. PREVIOUS FUNCTIONAL STATUS/SOCIAL/FAMILY SUPPORTS:: Ashley resides with her daughter, Rina due to increased struggles medically. She reports her daughter's fiance and their two daughters also reside in the home. She reports feeling happy about this arrangement and is able to watch the children when needed for her daughter. Ashley is disabled and not currently employed. She has three children, a son Wilfredo, her daughter Rina and another son who resides with his and children in [place]. Ashley reports a supportive family including several sisters who come from [place] to help her out, when needed. Ashley previously functioned independently in the community CURRENT FUNCTIONAL STATUS:: Ashley is lying in her recliner, she opens her eyes and says Hi to her daughter, Rina who is at her side. Rina reports being thankful for the verbal response, as Ashley has not been alert in her presence since having a seizure yesterday. Rina reports Ashley's presentation has declined rapidly over the past three days. ADVANCE DIRECTIVES:: Palliative Consult ordered. Has patient been provided with information about the portal?: No Did the patient sign up for the portal?: No CODE STATUS:: Full Code INSURANCE COVERAGE / FINANCIAL ISSUES:: Medicare CURRENT HOME/COMMUNITY SERVICES/EQUIPMENT:: Oncologist, Dr. Chavis. CAROL PARKING PATROLLER PHYSICIAN:: Peña Mayfield NP POTENTIAL DISCHARGE NEEDS:: Palliative Care consult, possible Hospice consult. PATIENT/FAMILY EDUCATION NEEDS:: Review discharge instructions, discuss Ask Me Three. ANTICIPATED BARRIERS TO DISCHARGE:: None identified. TRANSPORTATION:: Via private vehicle with family. PLAN:: Ashley will continue to be closely evaluated at this time. Palliative Consult-anticipated to support Rina and Ashley in decision making. Rina reports her mother did not want to come to the hospital and her wish is to bring her home once she has a better idea of Ashley's new baseline and care needs. CM continues to follow. 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 Previous admission was for treatment of colitis- unrelated to current admission. Ashley previously left [facility] Against Medical Advice, notified, CM was not notified. Patient left AMA, patient stated she was having her daughter pick her up and wanted to go to [facility]. Patient became upset after her IV sites infiltrated and was refusing new IV placement. was notified and patient was informed she is here becasue she is on several IV antibiotics and needs bowel rest. Patient became upset and stated she wants to leave AMA and go to [facility]. MD Silver notified. Patient was provided with a copy of AMA form.
[2020-01-08] MEDS: levETIRAcetam 1,000 MG in Normal Saline 100 ML 400 MG IVPB ×2 (08:38→20:43)
[2020-01-08] MEDS: Polyethylene Glycol 3350 17 GM PACKET PO (08:38)
[2020-01-08] MEDS: Dexamethasone 4 MG TAB PO ×2 (08:39→19:49)
[2020-01-08] MEDS: Docusate Sodium 100 MG CAP PO ×2 (08:39→19:49)
[2020-01-08] MEDS: levoFLOXacin 500 MG TAB PO (08:39)
[2020-01-08] MEDS: Venlafaxine 150 MG CAPCR PO (08:39)
[2020-01-08] MEDS: fentaNYL 25 MCG PATCH TD (08:40)
[2020-01-08] MEDS: Patch Removal 1 EACH TP (09:34)
--- NOTE | 2020-01-08 12:08 | W.PM.PROGNOT ---
Date of Service Date of service: 01/08/20 Time of Service: 12:08 Assessment and Plan Assessment and plan (1) Seizure: Start date: 01/08/20 Start time: 12:13 Status: Acute Assessment and plan: New onset seizure in setting of known metastatic disease to brain. Continues to be tired but easily arousable, opening eyes and then going back to sleep. Neuro consult. [facility] Dr. Chao will be seeing patient for further care of goals, to discuss advance directives, patient wishes (2) History of lung cancer: Start date: 01/08/20 Start time: 12:20 Status: Acute Assessment and plan: Lung cancer with mets to brain, liver, bones. See above. (3) History of known metastasis to liver: Start date: 01/08/20 Start time: 12:22 Status: Acute Assessment and plan: see above (4) Colitis: Start date: 01/08/20 Start time: 12:22 Status: Acute Assessment and plan: Recent hospitalization diagnosed with colitis from chemo therapy. Sent home on levaquin daily. Will continue dosing (5) Liver metastases: Start date: 01/08/20 Start time: 12:24 Status: Chronic Assessment and plan: see above (6) Brain metastasis: Start date: 01/08/20 Start time: 12:24 Status: Chronic Assessment and plan: see above. Above case discussed with Dr. Goodwin who is in agreement. Subjective Subjective Patient reports: no new complaints Interval history since last seen: Sleeping in chair. 1:1 observer. Patient opens eyes arouses then goes back to sleep. Exam Narrative Exam Narrative: . HEENT atraumatic. neck supple; lungs clear; heart RRR; abdomen soft and NT; extremities w/o edema; neuro: resting quietly, purposeful movements, opens eyes when name called . Objective Objective Clinical Data: Abnormal lab results 01/07/20 01/07/20 01/07/20 Range/Units 18:00 18:00 18:50 WBC 12.97 H (4.4-10.8) k/cumm RBC 3.78 L (4.00-5.20) m/cumm MCV 105.0 H (80-95) fL MCH 34.7 H (27.0-33.0) pg RDW 14.9 H (11.7-14.6) % Absolute Neutrophils 11.44 H (1.2-6.7) k/cumm Absolute Lymphocytes 0.87 L (1.2-3.4) k/cumm Anion Gap 14.5 H (3-11) mmol/L Glucose 164 H (74-106) mg/dL Calcium 8.2 L (8.5-10.1) mg/dL AST 72 H (15-37) U/L ALT 79 H (14-59) U/L Alkaline Phosphatase 226 H (46-116) U/L Ur Specific [place] >= 1.030 H (1.005-1.025) Urine Protein 30 H (Negative) mg/dL Urine Ketones 15 H (Negative) mg/dL Urine Blood Trace-intact H (Negative) Urine Opiates Screen (Negative) Ur THC Screen (Negative) 01/07/20 Range/Units 18:50 WBC (4.4-10.8) k/cumm RBC (4.00-5.20) m/cumm MCV (80-95) fL MCH (27.0-33.0) pg RDW (11.7-14.6) % Absolute Neutrophils (1.2-6.7) k/cumm Absolute Lymphocytes (1.2-3.4) k/cumm Anion Gap (3-11) mmol/L Glucose (74-106) mg/dL Calcium (8.5-10.1) mg/dL AST (15-37) U/L ALT (14-59) U/L Alkaline Phosphatase (46-116) U/L Ur Specific [place] (1.005-1.025) Urine Protein (Negative) mg/dL Urine Ketones (Negative) mg/dL Urine Blood (Negative) Urine Opiates Screen Positive A (Negative) Ur THC Screen Positive A (Negative) Vital Signs Temperature 37.1 C 01/08/20 07:17 Temperature Source Tympanic 01/08/20 07:17 Pulse 109 H 01/08/20 07:17 Pulse Rhythm Regular 01/08/20 09:39 Pulse 87 01/07/20 20:01 Respiratory Rate 18 01/08/20 07:17 Respiratory Effort 01/08/20 09:39 Respiratory Depth Normal 01/08/20 09:39 Respiratory Pattern Normal 01/08/20 09:39 Blood Pressure 103/73 01/08/20 07:17 Blood Pressure Mean 81 0320/20 20:01 Blood Pressure Position Supine 01/07/20 17:45 Pulse Oximetry 97 01/08/20 07:17 Respiratory End-tidal CO2 19 01/07/20 20:01 Oxygen Delivery Method Room Air 01/08/20 07:17 Oxygen Flow Rate 0 01/08/20 07:17 Pain Level 0 01/08/20 07:17 Intake & Output 01/07/20 01/08/20 01/08/20 23:59 11:59 23:59 Intake Total 1110 / 1110 250 / 250 Output Total 400 / 400 Balance 1110 / 1110 -150 / -150 Weight 89.1 kg Intake: IV 1110 / 1110 Oral 250 / 250 Output: Urine 400 / 400 Other: Urine Color Light Radha Urine Appearance Clear Comment LARGE VOID REPORTED BY PREV NURSE AND OTHER STAFF AT THIS TIME. Voiding Methods Bedside Commode Laboratory Results WBC 12.97 k/cumm (4.4-10.8) H 01/07/20 18:00 RBC 3.78 m/cumm (4.00-5.20) L 01/07/20 18:00 Hgb 13.1 g/dL (12.0-15.5) 01/07/20 18:00 Hct 39.7 % (36.0-46.0) 01/07/20 18:00 MCV 105.0 fL (80-95) H 01/07/20 18:00 MCH 34.7 pg (27.0-33.0) H 01/07/20 18:00 MCHC 33.0 g/dL (32.0-36.0) 01/07/20 18:00 RDW 14.9 % (11.7-14.6) H 01/07/20 18:00 Plt Count 203 x1000/uL (130-400) 01/07/20 18:00 MPV 9.9 fL (8.0-11.0) 01/07/20 18:00 Immature Gran % 1.2 % 01/07/20 18:00 Neutrophils % 88.2 01/07/20 18:00 Lymphocytes % 6.7 01/07/20 18:00 Monocytes % 3.8 01/07/20 18:00 Eosinophils % 0.0 01/07/20 18:00 Basophils % 0.1 01/07/20 18:00 Absolute Neutrophils 11.44 k/cumm (1.2-6.7) H 01/07/20 18:00 Absolute Lymphocytes 0.87 k/cumm (1.2-3.4) L 01/07/20 18:00 Absolute Monocytes 0.49 k/cumm (0.11-0.7) 01/07/20 18:00 Absolute Eosinophils 0.00 k/cumm (0.0-0.7) 01/07/20 18:00 Absolute Basophils 0.01 k/cumm (0.0-0.2) 01/07/20 18:00 PT 10.4 sec (9.3-11.0) 01/07/20 18:00 INR 1.0 (0.9-1.1) 01/07/20 18:00 APTT 21.2 sec (21.0-31.4) 01/07/20 18:00 ABG Sample Site Cancelled 01/07/20 17:58 ABG pH Cancelled 01/07/20 17:58 ABG pCO2 Cancelled 01/07/20 17:58 ABG pO2 Cancelled 01/07/20 17:58 ABG HCO3 Cancelled 01/07/20 17:58 ABG Total CO2 Cancelled 01/07/20 17:58 ABG O2 Saturation Cancelled 01/07/20 17:58 ABG Base Excess Cancelled 01/07/20 17:58 Oxygen Liter Flow Cancelled 01/07/20 17:58 FiO2 Cancelled 01/07/20 17:58 Sodium 140 mmol/L (136-145) 01/07/20 18:00 Potassium 4.4 mmol/L (3.5-5.1) 01/07/20 18:00 Chloride 99 mmol/L (98-107) 01/07/20 18:00 Carbon Dioxide 26.5 mmol/L (21.0-32.0) 01/07/20 18:00 Anion Gap 14.5 mmol/L (3-11) H 01/07/20 18:00 BUN 17 mg/dL (7-18) 01/07/20 18:00 Creatinine 0.68 mg/dL (0.55-1.02) 01/07/20 18:00 Estimated GFR/1.73 m2 >= 60.00 (mL/min/1.73m2) 01/07/20 18:00 Glucose 164 mg/dL (74-106) H 01/07/20 18:00 Calcium 8.2 mg/dL (8.5-10.1) L 01/07/20 18:00 Magnesium 1.8 mg/dL (1.8-2.4) 01/07/20 18:00 Total Bilirubin 0.5 mg/dL (0.2-1.0) 01/07/20 18:00 AST 72 U/L (15-37) H 01/07/20 18:00 ALT 79 U/L (14-59) H 01/07/20 18:00 Alkaline Phosphatase 226 U/L (46-116) H 01/07/20 18:00 Troponin I < 0.05 ng/Ml (<0.06) 01/07/20 18:00 Total Protein 7.2 g/dL (6.4-8.2) 01/07/20 18:00 Albumin 3.4 g/dL (3.4-5.0) 01/07/20 18:00 Urine Color Yellow (Yellow) 01/07/20 18:50 Urine Clarity Sl cloudy (Clear) 01/07/20 18:50 Urine pH 7.0 (5-8) 01/07/20 18:50 Ur Specific [place] >= 1.030 (1.005-1.025) H 01/07/20 18:50 Urine Protein 30 mg/dL (Negative) H 01/07/20 18:50 Urine Ketones 15 mg/dL (Negative) H 01/07/20 18:50 Urine Blood Trace-intact (Negative) H 01/07/20 18:50 Urine Nitrite Negative (Negative) 01/07/20 18:50 Urine Bilirubin Negative (Negative) 01/07/20 18:50 Urine Urobilinogen 0.2 EU/dL (Up TO 0.2) 01/07/20 18:50 Ur Leukocyte Esterase Negative (Negative) 01/07/20 18:50 Urine RBC 0-2 HPF (0-2) 01/07/20 18:50 Urine WBC 0-2 HPF (0-5) 01/07/20 18:50 Ur Epithelial Cells Many HPF (Negative) 01/07/20 18:50 Urine Crystals Negative HPF (Negative) 01/07/20 18:50 Urine Bacteria Few HPF (Negative) 01/07/20 18:50 Urine Mucus Negative (Negative) 01/07/20 18:50 Ur Culture Indicated? No 01/07/20 18:50 Urine Glucose Negative mg/dL (Negative) 01/07/20 18:50 Salicylates < 2.8 mg/dL (2.8-20.0) 01/07/20 18:00 Urine Opiates Screen Positive (Negative) A 01/07/20 18:50 Urine Methadone Screen Negative (Negative) 01/07/20 18:50 Acetaminophen < 2 ug/mL (10-30) 01/07/20 18:00 Ur Barbiturates Screen Negative (Negative) 01/07/20 18:50 Ur Tricyclics Screen Negative (Negative) 01/07/20 18:50 Ur Amphetamines Screen Negative (Negative) 01/07/20 18:50 U Benzodiazepines Scrn Negative (Negative) 01/07/20 18:50 Urine Cocaine Screen Negative (Negative) 01/07/20 18:50 Ur THC Screen Positive (Negative) A 01/07/20 18:50 Ethyl Alcohol < 3.0 mg/dL (<3) 01/07/20 18:00
--- NOTE | 2020-01-08 18:12 | W.PALLCONSUL ---
Date of service: 01/08/20 Time of Service: 18:12 History of Present Illness Narrative: 64-year-old woman with known stage IV lung cancer, leptomeningeal metastasis, liver and osseous metastasis came in with new onset seizures and mental status changes. I was asked by Dr. carlton to see the patient and her daughter Rina to discuss CODE STATUS and end-of-life issues. Ashley is presently a full code. I had Rina in the room and her brother Daniel on speaker phone. We went through what they understood to be their mother's disease at this time. They both are aware that she has stage IV cancer, the people do not get better from stage IV cancer. They also understand that she has metastasis that has gone to her brain, liver, and bones. They know that these are all bad. Rina states that she thinks her mom is probably getting close to the end. Daniel reiterates this and states that he was surprised she was so good for so long. Ashley is not able to contribute to the conversation. She did open her eyes when I came in and called her name. Rina said that was the most coherent she had been all day. She was not able to say any words. She did seem to recognize Rina Consults Consult date: 01/08/20 Requesting physician: Suraj Goodwin Assessment and Plan Assessment and plan (1) Seizure: Status: Acute (2) History of cancer metastatic to brain: Status: Acute (3) End of life care: Status: Acute Assessment and plan: After long discussion, the family decided DNR/DNI Family decided Hospice care is the direction they wish to go. WIll order Hospice COnsult. I do think that Rina will need some help accepting her decision. She knows it is best for her mother. She does not want to see her mother . She wishes to continue with the IV fluids until tomorrow. She understands that her mom will not go home with IV fluids going. I answered all questions from both Rina and Daniel. I did discuss the above with Dr. Goodwin and Dr. Lu. Will continue to follow while in the hospital. This document was created by [employer] recognition and may contain grammatical and translation errors. I have spent more than 50% of time in counseling with this patient. (4) Leptomeningeal metastases: Status: Acute (5) Liver metastases: Status: Acute (6) Osseous metastasis: Status: Acute Review of Systems Narrative: Ashley is not able to give a review of systems. When her daughter asked her if she was in pain she did not respond [facility] Medical History Bipolar disorder (Acute) Brain metastasis (Chronic) Liver metastases (Chronic) Stage IV adenocarcinoma of lung (Chronic) Surgical History History of bunionectomy of left great toe (Inactive ~07/2018) History of liver biopsy (Acute ~06/10/19) small cell neuroendocrine carcinoma S/P hysterectomy (Acute) also BSO Family History Father Prostate cancer metastatic to lung Mother Multiple myeloma Social History Smoking/Tobacco Use Status: Current every day Tobacco Type: cigarettes Years smoked: 20 Tobacco: How many years used: 15 Alcohol Intake: current Alcohol Intake frequency: holidays/special occasions only Drug use: Occasionally Substance use type: marijuana Household members: family Housing: apartment Number of Children: 2 number of grandchildren: 4 Do you feel safe at home: Yes Do you feel safe in your relationship?: Yes Exam Narrative Exam Narrative: Ashley is sitting in the chair. She does take a sip of juice. She seems to recognize Rina. Most of the time I am in the room she is laying with her head back and her eyes closed. She does purse her lips to give her daughter a cast. She does not say any meaningful words. Results Last Vital Signs Temp 98.8 F 01/08/20 07:17 Pulse 109 H 01/08/20 07:17 Resp 18 01/08/20 07:17 BP 103/73 01/08/20 07:17 Pulse Ox 97 01/08/20 07:17 Labs Result diagrams: 01/07/20 18:00 01/07/20 18:00 Labs: Laboratory Results - last 24 hr 01/07/20 01/07/20 01/07/20 17:58 18:00 18:00 WBC RBC Hgb Hct MCV MCH MCHC RDW Plt Count MPV Immature Gran % Neutrophils % Lymphocytes % Monocytes % Eosinophils % Basophils % Absolute Neutrophils Absolute Lymphocytes Absolute Monocytes Absolute Eosinophils Absolute Basophils PT 10.4 INR 1.0 APTT 21.2 ABG Sample Site Cancelled ABG pH Cancelled ABG pCO2 Cancelled ABG pO2 Cancelled ABG HCO3 Cancelled ABG Total CO2 Cancelled ABG O2 Saturation Cancelled ABG Base Excess Cancelled Oxygen Liter Flow Cancelled FiO2 Cancelled Sodium 140 Potassium 4.4 Chloride 99 Carbon Dioxide 26.5 Anion Gap 14.5 H BUN 17 Creatinine 0.68 Estimated GFR/1.73 m2 >= 60.00 Glucose 164 H Calcium 8.2 L Magnesium 1.8 Total Bilirubin 0.5 AST 72 H ALT 79 H Alkaline Phosphatase 226 H Troponin I < 0.05 Total Protein 7.2 Albumin 3.4 Urine Color Urine Clarity Urine pH Ur Specific [place] Urine Protein Urine Ketones Urine Blood Urine Nitrite Urine Bilirubin Urine Urobilinogen Ur Leukocyte Esterase Urine RBC Urine WBC Ur Epithelial Cells Urine Crystals Urine Bacteria Urine Mucus Ur Culture Indicated? Urine Glucose Salicylates Urine Opiates Screen Urine Methadone Screen Acetaminophen Ur Barbiturates Screen Ur Tricyclics Screen Ur Amphetamines Screen U Benzodiazepines Scrn Urine Cocaine Screen Ur THC Screen Ethyl Alcohol < 3.0 01/07/20 01/07/20 01/07/20 18:00 18:00 18:50 WBC 12.97 H RBC 3.78 L Hgb 13.1 Hct 39.7 MCV 105.0 H MCH 34.7 H MCHC 33.0 RDW 14.9 H Plt Count 203 MPV 9.9 Immature Gran % 1.2 Neutrophils % 88.2 Lymphocytes % 6.7 Monocytes % 3.8 Eosinophils % 0.0 Basophils % 0.1 Absolute Neutrophils 11.44 H Absolute Lymphocytes 0.87 L Absolute Monocytes 0.49 Absolute Eosinophils 0.00 Absolute Basophils 0.01 PT INR APTT ABG Sample Site ABG pH ABG pCO2 ABG pO2 ABG HCO3 ABG Total CO2 ABG O2 Saturation ABG Base Excess Oxygen Liter Flow FiO2 Sodium Potassium Chloride Carbon Dioxide Anion Gap BUN Creatinine Estimated GFR/1.73 m2 Glucose Calcium Magnesium Total Bilirubin AST ALT Alkaline Phosphatase Troponin I Total Protein Albumin Urine Color Yellow Urine Clarity Sl cloudy Urine pH 7.0 Ur Specific [place] >= 1.030 H Urine Protein 30 H Urine Ketones 15 H Urine Blood Trace-intact H Urine Nitrite Negative Urine Bilirubin Negative Urine Urobilinogen 0.2 Ur Leukocyte Esterase Negative Urine RBC 0-2 Urine WBC 0-2 Ur Epithelial Cells Many Urine Crystals Negative Urine Bacteria Few Urine Mucus Negative Ur Culture Indicated? No Urine Glucose Negative Salicylates < 2.8 Urine Opiates Screen Urine Methadone Screen Acetaminophen < 2 Ur Barbiturates Screen Ur Tricyclics Screen Ur Amphetamines Screen U Benzodiazepines Scrn Urine Cocaine Screen Ur THC Screen Ethyl Alcohol 01/07/20 18:50 WBC RBC Hgb Hct MCV MCH MCHC RDW Plt Count MPV Immature Gran % Neutrophils % Lymphocytes % Monocytes % Eosinophils % Basophils % Absolute Neutrophils Absolute Lymphocytes Absolute Monocytes Absolute Eosinophils Absolute Basophils PT INR APTT ABG Sample Site ABG pH ABG pCO2 ABG pO2 ABG HCO3 ABG Total CO2 ABG O2 Saturation ABG Base Excess Oxygen Liter Flow FiO2 Sodium Potassium Chloride Carbon Dioxide Anion Gap BUN Creatinine Estimated GFR/1.73 m2 Glucose Calcium Magnesium Total Bilirubin AST ALT Alkaline Phosphatase Troponin I Total Protein Albumin Urine Color Urine Clarity Urine pH Ur Specific [place] Urine Protein Urine Ketones Urine Blood Urine Nitrite Urine Bilirubin Urine Urobilinogen Ur Leukocyte Esterase Urine RBC Urine WBC Ur Epithelial Cells Urine Crystals Urine Bacteria Urine Mucus Ur Culture Indicated? Urine Glucose Salicylates Urine Opiates Screen Positive A Urine Methadone Screen Negative Acetaminophen Ur Barbiturates Screen Negative Ur Tricyclics Screen Negative Ur Amphetamines Screen Negative U Benzodiazepines Scrn Negative Urine Cocaine Screen Negative Ur THC Screen Positive A Ethyl Alcohol
[2020-01-08] MEDS: Ondansetron O.D.T. 4 MG TABEF PO (19:44)
[2020-01-09] MEDS: Normal Saline Flush 10 ML SYR ×2 (02:05→10:41)
[2020-01-09] MEDS: Ondansetron O.D.T. 4 MG TABEF PO (08:45)
--- NOTE | 2020-01-09 08:53 | PDOC.CMDIS ---
LACE Index Scoring Tool - Questions: Length of Stay (in days): 3 Acuity (Admit via E.D.?): Yes Comorbidities: with End Organ Damage, Any Tumor, Metastatic Solid Tumor E.D. Visits: 9 - Answers: Total Score: 15 Risk of Readmission: High Risk Care Management Discharge Reason for Hospitalization: New onset seizure, History of lung cancer, History of known metastasis to liver, History of cancer metastatic to brain, Bipolar disorder, hysterectomy, bunionectomy of left great toe, liver biopsy Discharge Plan: Ashley will return home when ready per MD. LYNN spoke with Justa at [facility], reviewed Palliative Consult with Dr. Villafuerte last evening. Justa reported orders, demographics, H&P, etc would be needed for Hospice consult/intake. She stated a consult would be unavailable today, but may be able to be coordinated tomorrow via [employer]. LYNN spoke with Dr. Villafuerte who reported she would complete orders for Hospice and follow up with [facility] regarding DME and patient needs. Anticipate Ashley will return home, and will be on Hospice shortly therafter. She transitioned to [facility] this morning, and will transport home via private vehicle with her daughter. Patient/Family Education Needs: Review of discharge instructions, discuss Ask Me Three. Services Needed at Discharge: DME Agency, Home Health Care Services (Referral and request for Hospice Orders/Intake. )
[2020-01-09] MEDS: Docusate Sodium 100 MG CAP PO ×3 (09:34→19:39)
[2020-01-09] MEDS: Polyethylene Glycol 3350 17 GM PACKET PO (09:34)
[2020-01-09] MEDS: Venlafaxine 150 MG CAPCR PO (09:34)
[2020-01-09] MEDS: Dexamethasone 4 MG TAB PO ×3 (09:35→19:39)
[2020-01-09] MEDS: levoFLOXacin 500 MG TAB PO (09:35)
[2020-01-09 09:47] VITALS: BP 122/81; PULSE 73; RESP 22; TEMP 36.6; O2SAT 98
[2020-01-09] MEDS: levETIRAcetam 1,000 MG in Normal Saline 100 ML 400 MG IVPB ×2 (10:14→19:38)
[2020-01-09] MEDS: Scopolamine 1 MG/3 DAYS PATCH TD (10:14)
[2020-01-09] MEDS: oxyCODONE 5 MG TAB PO (10:31)
[2020-01-09] MEDS: LORazepam 1 MG TAB PO ×2 (10:35→19:38)
--- NOTE | 2020-01-09 11:45 | CMPROGNOTE_ITS ---
Care Management Progress Note S/O: Ashley appeared comfortable, she was moving her arms and lifting them to her head and opening her eyes briefly when her daughter spoke with her. Dr. Villafuerte notified that Hospice was unable to admit Ashley due to staffing shortages until tomorrow. MD recommendation for Ashley to remain at [facility] until Hospice is able to provide intake in a timely manner with discharge. Dr. Villafuerte also reported Ashley would require a Hospital Bed. CM faxed referral to [facility]. met with Ashley Flynn's daughter who understands and is agreeable to the discharge plan at this time. She reported her intentions are to return home today to spend some time with her fiance and children, and then return to [facility] tonight to be with her mother overnight. She would like to drive her mother home tomorrow, and is hopeful Hospice will be available to coordinate an intake early tomorrow. Providers aware. A: 64 year old admitted to [facility] 01/07/20 for Seizure P: Ashley will return home when ready per MD. Anticipate Ashley will return home, and will be on Hospice shortly thereafter. She transitioned to [facility] this morning, and will transport home via private vehicle with her daughter.
--- NOTE | 2020-01-09 12:13 | W.PM.PROGNOT ---
Date of Service Date of service: 01/09/20 Time of Service: 12:13 Assessment and Plan Assessment and plan (1) Need for comfort care: Start date: 01/09/20 Start time: 12:19 Status: Acute Assessment and plan: While in the hospital Ashley will be made comfort care. She is dying for cancer metastisis. Her daughter asked IVF infuse until today. They have been discontinued. We will manage her vomiting and seizures. (2) End of life care: Start date: 01/09/20 Start time: 12:16 Status: Acute Assessment and plan: Ashley is now on comfort care. Her daughter and son agree that she is dying and would like her to be comfortable. She will be going home on hospice tomorrow. She was vomiting this morning, increase antiemetics, haldol for both agitation and nausea, scopalamine patch to help with nausea, meclizine as well. Fentanyl patch in place. She does not appear to have any pain at this time. (3) Seizure: Start date: 01/09/20 Start time: 12:19 Status: Acute Assessment and plan: Her daughter would like her to continue on keppra at home on discharge to limit seizure activity. Subjective Subjective Patient reports: no new complaints Interval history since last seen: Pt unable to contribute any new information. Vomiting this morning, increased antiemetics to help with vomiting. Daughter at bedside. Discussed care with her. She would like Ashley to go home tomorrow on hospice. Hospice will not be available to see her today and Daughter would like time to clear room for hospital bed. Exam Narrative Exam Narrative: Patient is now on comfort care. She is sleeping but appears comfortable. She is not grimmicing or showing any signs of pain. Objective Objective Clinical Data: Vital Signs Temperature 36.6 C 01/09/20 09:47 Temperature Source Tympanic 01/09/20 09:47 Pulse 73 01/09/20 09:47 Pulse Rhythm Regular 01/08/20 23:50 Pulse 87 01/07/20 20:01 Respiratory Rate 22 01/09/20 09:47 Respiratory Effort Non-Labored 01/08/20 23:50 Respiratory Depth Normal 01/08/20 23:50 Respiratory Pattern Irregular 01/08/20 23:50 Blood Pressure 122/81 01/09/20 09:47 Blood Pressure Mean 81 01/07/20 20:01 Blood Pressure Position Supine 01/07/20 17:45 Pulse Oximetry 98 01/09/20 09:47 Respiratory End-tidal CO2 19 01/07/20 20:01 Oxygen Delivery Method Room Air 01/09/20 09:47 Oxygen Flow Rate 0 01/09/20 09:47 Pain Level 0 01/08/20 07:17 Intake & Output 01/08/20 01/09/20 01/09/20 23:59 11:59 23:59 Intake Total 1716.333 / 1966.333 10 / 10 Output Total 1100 / 1100 Balance 1716.333 / 1566.333 -1090 / -1090 Intake: IV 1716.333 / 1716.333 10 10 Output: Urine 1100 / 1100 Other: Urine Color Yellow Urine Appearance Clear Clear Urine Odor None Voiding Methods Bedside Commode Laboratory Results WBC 12.97 k/cumm (4.4-10.8) H 01/07/20 18:00 RBC 3.78 m/cumm (4.00-5.20) L 01/07/20 18:00 Hgb 13.1 g/dL (12.0-15.5) 01/07/20 18:00 Hct 39.7 % (36.0-46.0) 01/07/20 18:00 MCV 105.0 fL (80-95) H 01/07/20 18:00 MCH 34.7 pg (27.0-33.0) H 01/07/20 18:00 MCHC 33.0 g/dL (32.0-36.0) 01/07/20 18:00 RDW 14.9 % (11.7-14.6) H 01/07/20 18:00 Plt Count 203 x1000/uL (130-400) 01/07/20 18:00 MPV 9.9 fL (8.0-11.0) 01/07/20 18:00 Immature Gran % 1.2 % 01/07/20 18:00 Neutrophils % 88.2 01/07/20 18:00 Lymphocytes % 6.7 01/07/20 18:00 Monocytes % 3.8 01/07/20 18:00 Eosinophils % 0.0 01/07/20 18:00 Basophils % 0.1 01/07/20 18:00 Absolute Neutrophils 11.44 k/cumm (1.2-6.7) H 01/07/20 18:00 Absolute Lymphocytes 0.87 k/cumm (1.2-3.4) L 01/07/20 18:00 Absolute Monocytes 0.49 k/cumm (0.11-0.7) 01/07/20 18:00 Absolute Eosinophils 0.00 k/cumm (0.0-0.7) 01/07/20 18:00 Absolute Basophils 0.01 k/cumm (0.0-0.2) 01/07/20 18:00 PT 10.4 sec (9.3-11.0) 01/07/20 18:00 INR 1.0 (0.9-1.1) 01/07/20 18:00 APTT 21.2 sec (21.0-31.4) 01/07/20 18:00 ABG Sample Site Cancelled 01/07/20 17:58 ABG pH Cancelled 01/07/20 17:58 ABG pCO2 Cancelled 01/07/20 17:58 ABG pO2 Cancelled 01/07/20 17:58 ABG HCO3 Cancelled 01/07/20 17:58 ABG Total CO2 Cancelled 01/07/20 17:58 ABG O2 Saturation Cancelled 01/07/20 17:58 ABG Base Excess Cancelled 01/07/20 17:58 Oxygen Liter Flow Cancelled 01/07/20 17:58 FiO2 Cancelled 01/07/20 17:58 Sodium 140 mmol/L (136-145) 01/07/20 18:00 Potassium 4.4 mmol/L (3.5-5.1) 01/07/20 18:00 Chloride 99 mmol/L (98-107) 01/07/20 18:00 Carbon Dioxide 26.5 mmol/L (21.0-32.0) 01/07/20 18:00 Anion Gap 14.5 mmol/L (3-11) H 01/07/20 18:00 BUN 17 mg/dL (7-18) 01/07/20 18:00 Creatinine 0.68 mg/dL (0.55-1.02) 01/07/20 18:00 Estimated GFR/1.73 m2 >= 60.00 (mL/min/1.73m2) 01/07/20 18:00 Glucose 164 mg/dL (74-106) H 01/07/20 18:00 Calcium 8.2 mg/dL (8.5-10.1) L 01/07/20 18:00 Magnesium 1.8 mg/dL (1.8-2.4) 01/07/20 18:00 Total Bilirubin 0.5 mg/dL (0.2-1.0) 01/07/20 18:00 AST 72 U/L (15-37) H 01/07/20 18:00 ALT 79 U/L (14-59) H 01/07/20 18:00 Alkaline Phosphatase 226 U/L (46-116) H 01/07/20 18:00 Troponin I < 0.05 ng/Ml (<0.06) 01/07/20 18:00 Total Protein 7.2 g/dL (6.4-8.2) 01/07/20 18:00 Albumin 3.4 g/dL (3.4-5.0) 01/07/20 18:00 Urine Color Yellow (Yellow) 01/07/20 18:50 Urine Clarity Sl cloudy (Clear) 01/07/20 18:50 Urine pH 7.0 (5-8) 01/07/20 18:50 Ur Specific [place] >= 1.030 (1.005-1.025) H 01/07/20 18:50 Urine Protein 30 mg/dL (Negative) H 01/07/20 18:50 Urine Ketones 15 mg/dL (Negative) H 01/07/20 18:50 Urine Blood Trace-intact (Negative) H 01/07/20 18:50 Urine Nitrite Negative (Negative) 01/07/20 18:50 Urine Bilirubin Negative (Negative) 01/07/20 18:50 Urine Urobilinogen 0.2 EU/dL (Up TO 0.2) 01/07/20 18:50 Ur Leukocyte Esterase Negative (Negative) 01/07/20 18:50 Urine RBC 0-2 HPF (0-2) 01/07/20 18:50 Urine WBC 0-2 HPF (0-5) 01/07/20 18:50 Ur Epithelial Cells Many HPF (Negative) 01/07/20 18:50 Urine Crystals Negative HPF (Negative) 01/07/20 18:50 Urine Bacteria Few HPF (Negative) 01/07/20 18:50 Urine Mucus Negative (Negative) 01/07/20 18:50 Ur Culture Indicated? No 01/07/20 18:50 Urine Glucose Negative mg/dL (Negative) 01/07/20 18:50 Salicylates < 2.8 mg/dL (2.8-20.0) 01/07/20 18:00 Urine Opiates Screen Positive (Negative) A 01/07/20 18:50 Urine Methadone Screen Negative (Negative) 01/07/20 18:50 Acetaminophen < 2 ug/mL (10-30) 01/07/20 18:00 Ur Barbiturates Screen Negative (Negative) 01/07/20 18:50 Ur Tricyclics Screen Negative (Negative) 01/07/20 18:50 Ur Amphetamines Screen Negative (Negative) 01/07/20 18:50 U Benzodiazepines Scrn Negative (Negative) 01/07/20 18:50 Urine Cocaine Screen Negative (Negative) 01/07/20 18:50 Ur THC Screen Positive (Negative) A 01/07/20 18:50 Ethyl Alcohol < 3.0 mg/dL (<3) 01/07/20 18:00
[2020-01-09] MEDS: LORazepam 2 MG/ML VIAL IVP ×2 (21:17→23:50)
[2020-01-09] MEDS: LORazepam 2 MG/ML VIAL 1 MG IVP ×2 (22:36→23:54)
[2020-01-10] MEDS: Normal Saline Flush 10 ML SYR ×2 (00:23→01:33)
[2020-01-10] MEDS: LORazepam 2 MG/ML VIAL IVP ×2 (00:23→01:33)
--- NOTE | 2020-01-10 01:32 | PGE_ITS ---
Date of Service Date of service: 01/10/20 Time of Service: 01:32 Subjective Subjective Interval history since last seen: Patient is restless and has had several seizure events overnight, requiring IV ativan. She is being started on ativan gtt to hopefully prevent further seizures. Discussed with daughter - if ativan does not work, will potentiall start propofol. IV morphine was also added as nursing perceives her to be uncomfortable. Objective Objective Clinical Data: Vital Signs Temperature 36.6 C 01/09/20 09:47 Temperature Source Tympanic 01/09/20 09:47 Pulse 73 01/09/20 09:47 Pulse Rhythm Regular 01/08/20 23:50 Pulse 87 01/07/20 20:01 Respiratory Rate 22 01/09/20 09:47 Respiratory Effort 01/09/20 19:35 Respiratory Depth Normal 01/09/20 19:35 Respiratory Pattern Normal 01/09/20 19:35 Blood Pressure 122/81 01/09/20 09:47 Blood Pressure Mean 81 01/07/20 20:01 Blood Pressure Position Supine 01/07/20 17:45 Pulse Oximetry 98 01/09/20 09:47 Respiratory End-tidal CO2 01/07/20 20:01 Oxygen Delivery Method Room Air 01/09/20 09:47 Oxygen Flow Rate 0 01/09/20 09:47 Pain Level 0 01/08/20 07:17 Intake & Output 01/09/20 01/09/20 01/10/20 11:59 23:59 11:59 Intake Total 120 / 120 Output Total 1100 / 1550 450 / 1550 Balance -980 / -1430 -450 / -1430 Intake: IV 120 / 120 Output: Urine 1100 / 1550 450 / 1550 Other: Urine Color Yellow Light Radha Urine Appearance Clear Clear Urine Odor None Strong Voiding Methods Bedside Commode Bedside Commode Laboratory Results WBC 12.97 k/cumm (4.4-10.8) H 01/07/20 18:00 RBC 3.78 m/cumm (4.00-5.20) L 01/07/20 18:00 Hgb 13.1 g/dL (12.0-15.5) 01/07/20 18:00 Hct 39.7 % (36.0-46.0) 01/07/20 18:00 MCV 105.0 fL (80-95) H 01/07/20 18:00 MCH 34.7 pg (27.0-33.0) H 01/07/20 18:00 MCHC 33.0 g/dL (32.0-36.0) 01/07/20 18:00 RDW 14.9 % (11.7-14.6) H 01/07/20 18:00 Plt Count 203 x1000/uL (130-400) 01/07/20 18:00 MPV 9.9 fL (8.0-11.0) 01/07/20 18:00 Immature Gran % 1.2 % 01/07/20 18:00 Neutrophils % 88.2 01/07/20 18:00 Lymphocytes % 6.7 01/07/20 18:00 Monocytes % 3.8 01/07/20 18:00 Eosinophils % 0.0 01/07/20 18:00 Basophils % 0.1 01/07/20 18:00 Absolute Neutrophils 11.44 k/cumm (1.2-6.7) H 01/07/20 18:00 Absolute Lymphocytes 0.87 k/cumm (1.2-3.4) L 01/07/20 18:00 Absolute Monocytes 0.49 k/cumm (0.11-0.7) 01/07/20 18:00 Absolute Eosinophils 0.00 k/cumm (0.0-0.7) 01/07/20 18:00 Absolute Basophils 0.01 k/cumm (0.0-0.2) 01/07/20 18:00 PT 10.4 sec (9.3-11.0) 01/07/20 18:00 INR 1.0 (0.9-1.1) 01/07/20 18:00 APTT 21.2 sec (21.0-31.4) 01/07/20 18:00 ABG Sample Site Cancelled 01/07/20 17:58 ABG pH Cancelled 01/07/20 17:58 ABG pCO2 Cancelled 01/07/20 17:58 ABG pO2 Cancelled 01/07/20 17:58 ABG HCO3 Cancelled 01/07/20 17:58 ABG Total CO2 Cancelled 01/07/20 17:58 ABG O2 Saturation Cancelled 01/07/20 17:58 ABG Base Excess Cancelled 01/07/20 17:58 Oxygen Liter Flow Cancelled 01/07/20 17:58 FiO2 Cancelled 01/07/20 17:58 Sodium 140 mmol/L (136-145) 01/07/20 18:00 Potassium 4.4 mmol/L (3.5-5.1) 01/07/20 18:00 Chloride 99 mmol/L (98-107) 01/07/20 18:00 Carbon Dioxide 26.5 mmol/L (21.0-32.0) 01/07/20 18:00 Anion Gap 14.5 mmol/L (3-11) H 01/07/20 18:00 BUN 17 mg/dL (7-18) 01/07/20 18:00 Creatinine 0.68 mg/dL (0.55-1.02) 01/07/20 18:00 Estimated GFR/1.73 m2 >= 60.00 (mL/min/1.73m2) 01/07/20 18:00 Glucose 164 mg/dL (74-106) H 01/07/20 18:00 Calcium 8.2 mg/dL (8.5-10.1) L 01/07/20 18:00 Magnesium 1.8 mg/dL (1.8-2.4) 01/07/20 18:00 Total Bilirubin 0.5 mg/dL (0.2-1.0) 01/07/20 18:00 AST 72 U/L (15-37) H 01/07/20 18:00 ALT 79 U/L (14-59) H 01/07/20 18:00 Alkaline Phosphatase 226 U/L (46-116) H 01/07/20 18:00 Troponin I < 0.05 ng/Ml (<0.06) 01/07/20 18:00 Total Protein 7.2 g/dL (6.4-8.2) 01/07/20 18:00 Albumin 3.4 g/dL (3.4-5.0) 01/07/20 18:00 Urine Color Yellow (Yellow) 01/07/20 18:50 Urine Clarity Sl cloudy (Clear) 01/07/20 18:50 Urine pH 7.0 (5-8) 01/07/20 18:50 Ur Specific [place] >= 1.030 (1.005-1.025) H 01/07/20 18:50 Urine Protein 30 mg/dL (Negative) H 01/07/20 18:50 Urine Ketones 15 mg/dL (Negative) H 01/07/20 18:50 Urine Blood Trace-intact (Negative) H 01/07/20 18:50 Urine Nitrite Negative (Negative) 01/07/20 18:50 Urine Bilirubin Negative (Negative) 01/07/20 18:50 Urine Urobilinogen 0.2 EU/dL (Up TO 0.2) 01/07/20 18:50 Ur Leukocyte Esterase Negative (Negative) 01/07/20 18:50 Urine RBC 0-2 HPF (0-2) 01/07/20 18:50 Urine WBC 0-2 HPF (0-5) 01/07/20 18:50 Ur Epithelial Cells Many HPF (Negative) 01/07/20 18:50 Urine Crystals Negative HPF (Negative) 01/07/20 18:50 Urine Bacteria Few HPF (Negative) 01/07/20 18:50 Urine Mucus Negative (Negative) 01/07/20 18:50 Ur Culture Indicated? No 01/07/20 18:50 Urine Glucose Negative mg/dL (Negative) 01/07/20 18:50 Salicylates < 2.8 mg/dL (2.8-20.0) 01/07/20 18:00 Urine Opiates Screen Positive (Negative) A 01/07/20 18:50 Urine Methadone Screen Negative (Negative) 01/07/20 18:50 Acetaminophen < 2 ug/mL (10-30) 01/07/20 18:00 Ur Barbiturates Screen Negative (Negative) 01/07/20 18:50 Ur Tricyclics Screen Negative (Negative) 01/07/20 18:50 Ur Amphetamines Screen Negative (Negative) 01/07/20 18:50 U Benzodiazepines Scrn Negative (Negative) 01/07/20 18:50 Urine Cocaine Screen Negative (Negative) 01/07/20 18:50 Ur THC Screen Positive (Negative) A 01/07/20 18:50 Ethyl Alcohol < 3.0 mg/dL (<3) 01/07/20 18:00
[2020-01-10] MEDS: MORPHine 2 MG/ML SYR IVP ×4 (02:32→09:00)
[2020-01-10] MEDS: levETIRAcetam 1,000 MG in Normal Saline 100 ML 400 MG IVPB (08:34)
--- NOTE | 2020-01-10 08:45 | PCNE_ITS ---
Date of service: 01/10/20 Time of Service: 06:45 [facility] Medical History Bipolar disorder (Acute) Brain metastasis (Chronic) Liver metastases (Chronic) Stage IV adenocarcinoma of lung (Chronic) Surgical History History of bunionectomy of left great toe (Inactive ~07/2018) History of liver biopsy (Acute ~06/10/19) small cell neuroendocrine carcinoma S/P hysterectomy (Acute) also BSO Family History Father Prostate cancer metastatic to lung Mother Multiple myeloma Social History Smoking/Tobacco Use Status: Current every day Tobacco Type: cigarettes Years smoked: 20 Tobacco: How many years used: 15 Alcohol Intake: current Alcohol Intake frequency: holidays/special occasions only Drug use: Occasionally Substance use type: marijuana Household members: family Housing: apartment Number of Children: 2 number of grandchildren: 4 Do you feel safe at home: Yes Do you feel safe in your relationship?: Yes Results Last Vital Signs Temp 97.9 F 01/09/20 09:47 Pulse 73 01/09/20 09:47 Resp 22 01/09/20 09:47 BP 122/81 01/09/20 09:47 Pulse Ox 98 01/09/20 09:47 Labs Result diagrams: 01/07/20 18:00 01/07/20 18:00
--- NOTE | 2020-01-10 09:27 | DSE_ITS ---
Date of service: 01/10/20 Time of Service: DS: Diagnosis Discharge Diagnosis (1) Need for comfort care: Start date: 01/10/20 Start time: Status: Acute Asessment and Plan: Patient is being discharged home on hospice. She will be discharged home on ativan CAD pump for staticus epilepticus. She is unresponsive. Oxygen as needed for comfort. Promethazine suppository. (2) End of life care: Start date: 01/10/20 Start time: Status: Acute Asessment and Plan: Home with hospice. (3) Seizure: Start date: 01/10/20 Start time: Status: Acute Asessment and Plan: Patient will be going home with hospice, on ativan CAD for seizure activity r/t brain mets Discharge Plan Disposition Patient Disposition: HOME Condition: Deteriorating Discharge Details Chief Complaint: Seizure Clinical Impression: New onset seizure, History of lung cancer, History of known metastasis to liver, History of cancer metastatic to brain Reason For Visit: SEIZURE Admit Date/Time: 01/07/20 19:04 Admit Provider: Armani Strickland Attending Provider: Armani Strickland Primary Care Provider: Julian Wadsworth ED Provider: Bhargavi Art Hospital Course Hospital Course: Ms. Kaiser is 64 y.o female with end stage lung cancer with metatises to Brain, Liver, bones. She was admitted to m/s from [facility] ED after presenting with seizing. Initially she was responsive getting up to chair, arousable, but sleepy. She was started on Keppra on admission. Yesterday patient was a little more awake, vomiting in the morning. The decision was made to make her comfort care and home with hospice after a conversation with Dr. Chao and her children. Overnight however patient began to seize requiring and ativan drip. Daughter has decided she would like to keep her mothers wishes of dying at home. Therefore she is being discharged home with hospice. She will discharged on ativan cad for comfort from seizures. She is nonresponsive at this time. We will given promethizine suppositories for nausea and vomiting. Scopolamine patch. I will order morhpine through hospice in the event that she does respond in pain. Likely she will not wake up from this event as she is deteriorating rapidly. Hospice will meet her at 1 pm. She will be transported via EMS. Home Meds and New Rx's Prescriptions: New Tigan 100 mg/mL Solution 200 mg IM QID PRN PRNQty: 15 RF: 0 dexamethasone 4 mg Tablet 4 mg PO TID Qty: 10 RF: 0 promethazine 25 mg suppository 25 mg DE Q6H PRNQty: 1 RF: 0 scopolamine base 1 mg over 3 days patch 3 day 1 patch TD Q3D PRNQty: 4 RF: 0 morphine 5 mg suppository 5 mg DE Q4H Qty: 24 RF: 0 Continued polyethylene glycol 3350 [Miralax] 17 gram powder in packet 17 gm PO DAILY Qty: 30 RF: 0 fentanyl 25 mcg/hr Patch 72 Hour 1 patch TRANSDERMAL Q72H RF: 0 oxycodone 5 mg Tablet 5 mg PO Q3H PRN PRNRF: 0 venlafaxine [Effexor XR] 150 mg Capsule,Extended Release 24hr 150 mg PO DAILY RF: 0 ondansetron 4 mg Tablet,Disintegrating 4 mg PO Q6H PRNRF: 0 Discontinued docusate sodium 100 mg Capsule 100 mg PO TID RF: 0 dexamethasone 4 mg Tablet 4 mg PO BID RF: 0 Discharge Instructions Instructions: Hospice Care (GEN) Additional Instructions: Hospice will meet you at the house. Activity:: Activity as Tolerated Equipment/Supplies:: No Equipment Needed Diet:: As Tolerated Discharge Orders Discharge Orders: Discharge Order (Routine); Ordered 01/10/20 Ordered By: Berenice Nassar DS: Summary Status at Discharge Functional status at discharge: bed bound Overall status at discharge: other Mental Status: other Speech and Movement: other Mood: other Affect: other Exam Narrative Exam Narrative: Nonresponsive. Snoring respirations. Going home on hospice. Daughter at side. Psych Mental Status: other Speech and Movement: other Mood: other Affect: other DS: Data Vitals/I&O Vitals and I&O: Vital Signs Temperature 36.6 C 01/09/20 09:47 Temperature Source Tympanic 01/09/20 09:47 Pulse 73 01/09/20 09:47 Pulse Rhythm Regular 01/08/20 23:50 Pulse 87 01/07/20 20:01 Respiratory Rate 22 01/09/20 09:47 Respiratory Effort Incrsd Work of Breathing 01/10/20 08:52 Respiratory Depth Retractive 01/10/20 08:52 Respiratory Pattern Irregular 01/10/20 08:52 Blood Pressure 122/81 01/09/20 09:47 Blood Pressure Mean 81 01/07/20 20:01 Blood Pressure Position Supine 01/07/20 17:45 Pulse Oximetry 98 01/09/20 09:47 Respiratory End-tidal CO2 19 01/07/20 20:01 Oxygen Delivery Method Nasal Cannula 01/10/20 04:54 Oxygen Flow Rate 2 01/10/20 04:54 Pain Level 0 01/08/20 07:17 Intake & Output 01/09/20 01/09/20 01/10/20 11:59 23:59 11:59 Intake Total 120 / 230 110 / 230 25.867 / 25.867 Output Total 1100 / 1550 450 / 1550 Balance -980 / -1320 -340 / -1320 25.867 / 25.867 Intake: IV 120 / 230 110 / 230 25.867 / 25.867 Output: Urine 1100 / 1550 450 / 1550 Other: Urine Color Yellow Light Radha Dark Radha Urine Appearance Clear Clear Clear Urine Odor None Strong None Voiding Methods Bedside Commode Bedside Commode Indwelling Catheter Data Completed and Pending Completed studies during hospitalization [Text1]: COMPARISON: CT HEAD WO 12/28/2019 2:29 PM FINDINGS: Brain: Normal. No hemorrhage. Unremarkable white matter. No mass effect. Ventricles: Normal. No ventriculomegaly. Bones/joints: Unremarkable. No acute fracture. Sinuses: Visualized sinuses are unremarkable. No fluid levels. Mastoid air cells: Visualized mastoid air cells are well aerated. Soft tissues: Unremarkable. IMPRESSION: No acute intracranial abnormality. PROCEDURE INFORMATION: Exam: XR Chest, 1 View Exam date and time: 01/07/2020 6:22 PM Age: 64 years old Clinical indication: Condition or disease; Patient HX: Altered mental status, seizure; Additional info: R/O acute disease TECHNIQUE: Imaging protocol: XR of the chest Views: 1 view. COMPARISON: No relevant prior studies available. FINDINGS: Lungs: Unremarkable. No consolidation. Pleural space: Unremarkable. No pleural effusion. No pneumothorax. Heart/Mediastinum: Unremarkable. No cardiomegaly. Bones/joints: Unremarkable. IMPRESSION: No acute findings. CLINICAL HISTORY: altered mental status, r/o acute disease. altered mental status, r/o acute disease TECHNIQUE: Imaging Protocol: Axial computed tomography images with coronal and sagittal reformatted images were created and reviewed COMPARISON: CT HEAD WO from 12/28/2019 FINDINGS: The ventricular system is normal in appearance. No evidence of acute intracranial hemorrhage, mass effect, or midline shift. The orbital structures are unremarkable. The temporal bone structures appear intact. Calvarium: Normal. Visualized Paranasal sinuses/Mastoids: Clear. IMPRESSION: Normal cranial CT. FOR[facility], [facility]1983 Medical History Bipolar disorder (Acute) Brain metastasis (Chronic) Liver metastases (Chronic) Stage IV adenocarcinoma of lung (Chronic) Surgical History History of bunionectomy of left great toe (Inactive ~07/2018) History of liver biopsy (Acute ~06/10/19) small cell neuroendocrine carcinoma S/P hysterectomy (Acute) also BSO Family History Father Prostate cancer metastatic to lung Mother Multiple myeloma Social History Smoking/Tobacco Use Status: Current every day Tobacco Type: cigarettes Years smoked: 20 Tobacco: How many years used: 15 Alcohol Intake: current Alcohol Intake frequency: holidays/special occasions only Drug use: Occasionally Substance use type: marijuana Household members: family Housing: apartment Number of Children: 2 number of grandchildren: 4 Do you feel safe at home: Yes Do you feel safe in your relationship?: Yes
--- NOTE | 2020-01-10 11:32 | NUR.NOTE ---
Nursing Note: 1130 pt discharged to home ativan drip stopped at that time per pump dose mg/hr 4.5 rate 4.5 volume remaining 67.2, volume given 32.8, returned lorazapam 50 mg bag in dextrose to pharmacy drop box. Mouna Heard RN second nurse verifying use and discontinuation.
--- NOTE | 2020-01-10 11:36 | PDOC.CMDIS ---
- If Service Date Differs Date of service: 01/10/20 Time of Service: 11:36 LACE Index Scoring Tool - Questions: Length of Stay (in days): 3 Acuity (Admit via E.D.?): Yes Comorbidities: Metastatic Solid Tumor E.D. Visits: 9 - Answers: Total Score: 15 Risk of Readmission: High Risk Care Management Discharge Reason for Hospitalization: New onset seizure, History of lung cancer, History of known metastasis to liver, History of cancer metastatic to brain, Bipolar disorder, hysterectomy, bunionectomy of left great toe, liver biopsy Discharge Plan: Ashley will be discharged home and admitted to hospice. She will transport via ambulance and remain with her daughter for end of life care. [facility] and hospice will provide support to patient and family. Patient/Family Education Needs: Hospice and end of life care.
--- NOTE | 2020-01-10 12:22 | NUR.NOTE ---
Nursing Note: pt discharge via ambulance to [facility]. Home health nurse took pts prescriptions with her. There were no issues with discharge.
--- NOTE | 2020-01-10 18:04 | W.PALPGNOTE ---
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 This is appropriate. She is presently on an Ativan drip. The plan is for her to go home on hospice. Arrangements are being made and hospice will see her today. I did offer Rina to leave Ashley here at the hospital since she is seizing. It might be easier to control her through the hospital. Rina was very clear that she wanted her mom home. I assured Rina that we would be sending her mom home by ambulance and that the ambulance people would be able to get her to the second floor apartment Additionally we can do Ativan through hospice. We will use a fentanyl patch to help with discomfort. I will make these arrangements directly with hospice. She is no longer swallowing we will stop all oral meds. Ashley is a DNR/DNI no transport. She will be admitted to hospice today and the expectation is that she would soon. I think Ashley has days to a week at most. This document was created by [employer] and may contain grammatical and translation errors. Subjective Subjective Interval history since last seen: Over the last 24 hours Ashley has been comatose. Her daughter Rina has been it by her side. The plan is to bring Ashley home for hospice care and allow her to and familiar setting. She has had significant seizure activity due to her metastatic cancer. She is presently on an Ativan drip. Rina is very sad about her mom dying. She has told her that it is okay to and that she will see her in the next life. Family is anxious to get Ashley home. She wonders how she is going to get Ashley from the car into the house. They live in the second floor apartment. Exam Narrative Exam Narrative: Ashley is presently not seizing. She looks calm and not in pain. She is recently received some morphine. Her heart is regular. Breathing is very shallow. She does not react to my voice or pressure Objective Objective Clinical Data: Vital Signs Temperature 97.9 F 01/09/20 09:47 Temperature Source Tympanic 01/09/20 09:47 Pulse 73 01/09/20 09:47 Pulse Rhythm Regular 01/08/20 23:50 Pulse 87 01/07/20 20:01 Respiratory Rate 22 01/09/20 09:47 Respiratory Effort Incrsd Work of Breathing 01/10/20 08:52 Respiratory Depth Retractive 01/10/20 08:52 Respiratory Pattern Irregular 01/10/20 08:52 Blood Pressure 122/81 01/09/20 09:47 Blood Pressure Mean 81 01/07/20 20:01 Blood Pressure Position Supine 01/07/20 17:45 Pulse Oximetry 98 01/09/20 09:47 Respiratory End-tidal CO2 19 01/07/20 20:01 Oxygen Delivery Method Nasal Cannula 01/10/20 04:54 Oxygen Flow Rate 2 01/10/20 04:54 Pain Level 0 01/08/20 07:17 Intake & Output 01/09/20 01/10/20 01/10/20 23:59 11:59 23:59 Intake Total 110 / 230 38.692 / 38.692 Output Total 450 / 1550 Balance -340 / -1320 38.692 / 38.692 Intake: IV 110 / 230 38.692 / 38.692 Output: Urine 450 / 1550 Other: Urine Color Light Radha Dark Radha Urine Appearance Clear Clear Urine Odor Strong None Voiding Methods Bedside Commode Indwelling Catheter Laboratory Results WBC 12.97 k/cumm (4.4-10.8) H 01/07/20 18:00 RBC 3.78 m/cumm (4.00-5.20) L 01/07/20 18:00 Hgb 13.1 g/dL (12.0-15.5) 01/07/20 18:00 Hct 39.7 % (36.0-46.0) 01/07/20 18:00 MCV 105.0 fL (80-95) H 01/07/20 18:00 MCH 34.7 pg (27.0-33.0) H 01/07/20 18:00 MCHC 33.0 g/dL (32.0-36.0) 01/07/20 18:00 RDW 14.9 % (11.7-14.6) H 01/07/20 18:00 Plt Count 203 x1000/uL (130-400) 01/07/20 18:00 MPV 9.9 fL (8.0-11.0) 01/07/20 18:00 Immature Gran % 1.2 % 01/07/20 18:00 Neutrophils % 88.2 01/07/20 18:00 Lymphocytes % 6.7 01/07/20 18:00 Monocytes % 3.8 01/07/20 18:00 Eosinophils % 0.0 01/07/20 18:00 Basophils % 0.1 01/07/20 18:00 Absolute Neutrophils 11.44 k/cumm (1.2-6.7) H 01/07/20 18:00 Absolute Lymphocytes 0.87 k/cumm (1.2-3.4) L 01/07/20 18:00 Absolute Monocytes 0.49 k/cumm (0.11-0.7) 01/07/20 18:00 Absolute Eosinophils 0.00 k/cumm (0.0-0.7) 01/07/20 18:00 Absolute Basophils 0.01 k/cumm (0.0-0.2) 01/07/20 18:00 PT 10.4 sec (9.3-11.0) 01/07/20 18:00 INR 1.0 (0.9-1.1) 01/07/20 18:00 APTT 21.2 sec (21.0-31.4) 01/07/20 18:00 ABG Sample Site Cancelled 01/07/20 17:58 ABG pH Cancelled 01/07/20 17:58 ABG pCO2 Cancelled 01/07/20 17:58 ABG pO2 Cancelled 01/07/20 17:58 ABG HCO3 Cancelled 01/07/20 17:58 ABG Total CO2 Cancelled 01/07/20 17:58 ABG O2 Saturation Cancelled 01/07/20 17:58 ABG Base Excess Cancelled 01/07/20 17:58 Oxygen Liter Flow Cancelled 01/07/20 17:58 FiO2 Cancelled 01/07/20 17:58 Sodium 140 mmol/L (136-145) 01/07/20 18:00 Potassium 4.4 mmol/L (3.5-5.1) 01/07/20 18:00 Chloride 99 mmol/L (98-107) 01/07/20 18:00 Carbon Dioxide 26.5 mmol/L (21.0-32.0) 01/07/20 18:00 Anion Gap 14.5 mmol/L (3-11) H 01/07/20 18:00 BUN 17 mg/dL (7-18) 01/07/20 18:00 Creatinine 0.68 mg/dL (0.55-1.02) 01/07/20 18:00 Estimated GFR/1.73 m2 >= 60.00 (mL/min/1.73m2) 01/07/20 18:00 Glucose 164 mg/dL (74-106) H 01/07/20 18:00 Calcium 8.2 mg/dL (8.5-10.1) L 01/07/20 18:00 Magnesium 1.8 mg/dL (1.8-2.4) 01/07/20 18:00 Total Bilirubin 0.5 mg/dL (0.2-1.0) 01/07/20 18:00 AST 72 U/L (15-37) H 01/07/20 18:00 ALT 79 U/L (14-59) H 01/07/20 18:00 Alkaline Phosphatase 226 U/L (46-116) H 01/07/20 18:00 Troponin I < 0.05 ng/Ml (<0.06) 01/07/20 18:00 Total Protein 7.2 g/dL (6.4-8.2) 01/07/20 18:00 Albumin 3.4 g/dL (3.4-5.0) 01/07/20 18:00 Urine Color Yellow (Yellow) 01/07/20 18:50 Urine Clarity Sl cloudy (Clear) 01/07/20 18:50 Urine pH 7.0 (5-8) 01/07/20 18:50 Ur Specific [place] >= 1.030 (1.005-1.025) H 01/07/20 18:50 Urine Protein 30 mg/dL (Negative) H 01/07/20 18:50 Urine Ketones 15 mg/dL (Negative) H 01/07/20 18:50 Urine Blood Trace-intact (Negative) H 01/07/20 18:50 Urine Nitrite Negative (Negative) 01/07/20 18:50 Urine Bilirubin Negative (Negative) 01/07/20 18:50 Urine Urobilinogen 0.2 EU/dL (Up TO 0.2) 01/07/20 18:50 Ur Leukocyte Esterase Negative (Negative) 01/07/20 18:50 Urine RBC 0-2 HPF (0-2) 01/07/20 18:50 Urine WBC 0-2 HPF (0-5) 01/07/20 18:50 Ur Epithelial Cells Many HPF (Negative) 01/07/20 18:50 Urine Crystals Negative HPF (Negative) 01/07/20 18:50 Urine Bacteria Few HPF (Negative) 01/07/20 18:50 Urine Mucus Negative (Negative) 01/07/20 18:50 Ur Culture Indicated? No 01/07/20 18:50 Urine Glucose Negative mg/dL (Negative) 01/07/20 18:50 Salicylates < 2.8 mg/dL (2.8-20.0) 01/07/20 18:00 Urine Opiates Screen Positive (Negative) A 01/07/20 18:50 Urine Methadone Screen Negative (Negative) 01/07/20 18:50 Acetaminophen < 2 ug/mL (10-30) 01/07/20 18:00 Ur Barbiturates Screen Negative (Negative) 01/07/20 18:50 Ur Tricyclics Screen Negative (Negative) 01/07/20 18:50 Ur Amphetamines Screen Negative (Negative) 01/07/20 18:50 U Benzodiazepines Scrn Negative (Negative) 01/07/20 18:50 Urine Cocaine Screen Negative (Negative) 01/07/20 18:50 Ur THC Screen Positive (Negative) A 01/07/20 18:50 Ethyl Alcohol < 3.0 mg/dL (<3) 01/07/20 18:00
== END 2020-01-10 11:24 | disposition home or self-care (01) | DRG 101 ==
LOC: ER 20:08 → MS 20:40
PROVIDERS: Admitting Provider General Practice; Emergency Provider Physician Assistant; PCP Specialist/Technologist Athletic Trainer; Visit Provider Family Medicine
DX: R56.9 Unspecified convulsions (principal); C34.90 Malignant neoplasm of unspecified part of unspecified bronchus or lung; C79.31 Secondary malignant neoplasm of brain; C78.7 Secondary malignant neoplasm of liver and intrahepatic bile duct; C79.51 Secondary malignant neoplasm of bone; K52.1 Toxic gastroenteritis and colitis; Z51.5 Encounter for palliative care; T45.1X5A Adverse effect of antineoplastic and immunosuppressive drugs, initial encounter
CPT/HCPCS: 36415; 80053; 80307; 82805; 93005; 96361; 96365; 99222; 99233; 99239; 99255; 99285; NC; 70450; 71045; 80320; 80329; 81003; 81015; 83735; 84484; 85025; 85610; 85730; 93010; J1100; J1953; J2060; J2270; J3490; J8540

== ENCOUNTER → 2020-01-10 07:54 | Outpatient (BNVA) | payer MEDICARE, SELFPAY | PROVIDERS: PCP Specialist/Technologist Athletic Trainer; Referring Provider Specialist/Technologist Athletic Trainer; Visit Provider Psychiatry & Neurology Neurology | DX: R69 Illness, unspecified (principal) ==